=== PATIENT | female | born 1955 | race Hispanic/Latino ===

== ENCOUNTER 2017-12-17 12:23 | Day surgery (SDC) | payer MEDICARE ==
[2017-12-14 11:56] VITALS: BMI 14.9
[2017-12-17 12:40] LABS: BASO # 0.1 K/mm3 (0.0-2.0); BASO % 1.8 % (0.0-3.0); EOS # 0.3 (0.0-0.7); EOS % 5.3 % (1.5-5.0); GRAN # 2.87 (1.4-6.5); GRAN % 50.3 % (50.0-68.0); HEMOGLOBIN 14.1 g/dL (12.0-16.0); LYMPH % 35.4 % (22.0-35.0); MEAN CELL VOLUME 93.1 fl (80.0-105.0); MEAN CORPUSCULAR HEMOGLOBIN 32.3 pg (25.0-35.0); MEAN CORPUSCULAR HGB CONC 34.7 g/dl (31.0-37.0); MEAN PLATELET VOLUME 9.1 fl (7.0-11.0); MONO # 0.4 (0.1-0.6); MONO % 7.2 % (1.0-6.0); RBC 4.36 10^6/uL (3.5-6.1); RED CELL DISTRIBUTION WIDTH 12.2 % (11.5-14.5); WHITE BLOOD COUNT 5.7 10^3/ul (4.5-11.0)
[2017-12-17 12:46] LABS: BLOOD UREA NITROGEN 6 mg/dL (7-21); CALCIUM 9.4 mg/dL (8.4-10.5); GFR AFRICAN-AMERICAN > 60; GFR NON-AFRICAN AMERICAN > 60
[2017-12-17 12:52] LABS: INR 0.95 (0.93-1.08); PARTIAL THROMBOPLASTIN TIME 30.7 Seconds (25.1-36.5); PROTHROMBIN TIME 10.9 SECONDS (9.4-12.5)
[2017-12-17] MEDS ORDERED: Lidocaine 2% Inj (20ml) ONE ×2 (15:12→16:11)
[2017-12-17] MEDS ORDERED: Midazolam 2 MG/2 ML VIAL ONE ×2 (15:13→16:39)
[2017-12-17] MEDS ORDERED: Iodixanol 320 MG/ML 100 ML BOTTLE IV ONE (15:14)
[2017-12-17] MEDS ORDERED: Oxycodone/Acetaminophen 5/325 mg Tab PO PRN (17:37)
[2017-12-17] MEDS ORDERED: DiphenhydrAMINE 50 mg/ml Inj ONE (17:42)
[2017-12-17] MEDS ORDERED: Famotidine 20mg/50ml 20 MG/50 ML BAG IVPB ONE (17:42)
[2017-12-17] MEDS ORDERED: EPINEPHrine 1 mg/ml (1:1000) Inj ONE (17:44)
[2017-12-17] MEDS ORDERED: Sodium Chloride 0.45% 1,000 ML IV SCH (17:45)
[2017-12-17] MEDS ORDERED: Flumazenil 0.1 mg/ml Inj (5ml) IVP ONE (17:47)
--- NOTE | 2017-12-17 18:33 | PCM.RRT ---
GEAR STRAIGHTENER Nurse Assessment - Situation Date: 12/17/17 Time GEAR STRAIGHTENER was called: 17:50 GEAR STRAIGHTENER Responder Arrival Time: 17:51 GEAR STRAIGHTENER Location:: Cardiac Cath Unit GEAR STRAIGHTENER Reason for Call: Looks Sicker GEAR STRAIGHTENER Called By: RN - Respiratory Oxygen Delivery Method: Face Mask @% Was the Patient Intubated?: No - Recommendations 5) GEAR STRAIGHTENER Level of Care Recommendations: Discharge to Emergency Room Notifications: Attending Physician, Family or Designated Caregiver I.Reason for GEAR STRAIGHTENER - A) Acute Change in Patient: Subjective: PGY-[address] Baker GEAR STRAIGHTENER: Respiratory distress and symptomatic hypotension Ms Panchal, 62 F, with Hx COPD not O2 dependent, Hx lung CA s/p R upper lobectomy , and hypothyroid came in for port-a-cath placement. The pre-procedure vitals are as follows: HR 80s, 134/66, 100% on 2L. Patient received 2% Lidocaine SC, Ancef 1g, Fentanyl 150, Versed 3 during the procedure. No contrast was used. The procedure was successful. As patient was transferred from surgical table to a stretcher, the staff noticed that she was choking and had a difficulty catching breath. She remains on 2L O2 on face mask and SaO2 100. The concern for angioedema was raised. Prompty epineprhine, solumedrol, and benadryl was given. Pt HR went up to 160s, so GEAR STRAIGHTENER was called. In about 15 minutes, pt was breathing better, HR returned to 110s, and POx was 92 RA. She was transferred to PACU. In PACU, her BP was in 50s. After bolus 500cc NS, her BP was 70s. Pt was AAOx3 but complained of dizziness. She was transferred to ED for admission. PMH COPD not O2 dependent New Breast cancer (dx several months ago) Hx lung CA s/p R upper lobectomy, chemo, radiation 17 years (2000) hypothyroid Arthritis, disc disease PSH R lobectomy L breast bx L knee arthroscopy Port-a-cath placement - today by Dr Perez FH 2 sister - colon dad - lung sister - kidney sister - oral Mom, aunt - CVA SH Recent former smoker, quit 2 weeks ago was 10-15 cig/day x 40+ years Denies Drink, drug All NKDA. Med [place] Pulm Dr Trinidad oncologist Dr Rodriguez - Neurological Status (Select all that apply): Alert, Responsive, Oriented, Verbal, Follows Commands - Respiratory Oxygen Delivery Method: Room Air - Constitutional Appears: Non-toxic - Head Head Exam: ATRAUMATIC, NORMAL INSPECTION, NORMOCEPHALIC - Eyes Eye Exam: EOMI, Normal appearance, PERRL. absent: Scleral icterus Additional Comments: No lip/tongue/throat swelling - Respiratory Exam Respiratory Exam: Clear to Ausculation Bilateral, Rales. absent: Rhonchi, Wheezes - Cardiovascular Exam Cardiovascular Exam: Tachycardia, REGULAR RHYTHM, +S1, +S2 - GI/Abdominal Exam GI & Abdominal Exam: Soft. absent: Distended - Neurological Exam Neurological Exam: Alert, Awake, Oriented x3 - Extremities Exam Extremities Exam: absent: Pedal Edema Plan - Assessment of Findings&Treatment Plan Allergic reaction s/p epi, solumedrol, benadryl Exposure meds include Ancef, lidocaine, Versed, fentynl Symptomatic Hypotension likely due to allergic reaction - Pt is stablized via NS bolus. SBP 70s. - Keep MAP 65 - transfer to ED for possible admission - Notified family, Dr. Perez, Dr Rodriguez
[2017-12-17 19:33] VITALS: RESP 19; TEMP 97.7
[2017-12-17 19:52] VITALS: BP 71/43; PULSE 70; O2SAT 99
--- NOTE | 2017-12-17 21:06 | VASCULAR ---
PROCEDURE: Ultrasound and fluoroscopic right internal jugular venous access port. CLINICAL HISTORY: Recently diagnosed breast carcinoma. Previous Pancoast tumor.Venous port for chemotherapy. PHYSICIAN(S): Jason Perez M.D. TECHNIQUE: The relative risks and indications of the procedure were explained to the patient and consent obtained. The patient was placed supine on the arteriogram table and the right neck and chest prepped and draped in the usual sterile fashion. Conscious sedation monitoring was provided throughout the procedure by a nurse. Antibiotics were given prior to the procedure. Under direct ultrasound guidance, the right internal jugular vein was punctured with a micro-puncture set. A 0.035 angled Glidewire was advanced into the IVC. A 4 cm incision was made below the right clavicle and the pocket blunted dissected. A 8 Croatian single-lumen catheter, 23 cm long, was advanced to the SVC/RA junction. The catheter was trimmed and attached to the port. The port aspirates and injects easily. The port was placed in the pocket and closed in 2 layers. The patient tolerated the procedure well. IMPRESSION: Ultrasound and fluoroscopically placed right internal jugular venous access port.
== END 2017-12-17 17:00 ==
LOC: SDSVAS 12:23
PROVIDERS: ATTEND Radiology Vascular & Interventional Radiology
DX: C50.919 Malignant neoplasm of unspecified site of unspecified female breast (principal); I95.9 Hypotension, unspecified; T50.995A Adverse effect of other drugs, medicaments and biological substances, initial encounter; J44.9 Chronic obstructive pulmonary disease, unspecified; E03.9 Hypothyroidism, unspecified; M19.90 Unspecified osteoarthritis, unspecified site; Z85.118 Personal history of other malignant neoplasm of bronchus and lung; Z99.81 Dependence on supplemental oxygen; Z90.2 Acquired absence of lung [part of]; Z87.891 Personal history of nicotine dependence
CPT/HCPCS: 36561; 72HRC; 76937; 77001; 99152; 99153

== ENCOUNTER 2017-12-17 18:44 | Inpatient (IN) | payer MEDICARE ==
[2017-12-17] MEDS ORDERED: Sodium Chloride 0.9% 1,000 ML IV STA ×3 (19:09→20:33)
[2017-12-17] MEDS ORDERED: Albuterol-Ipratrop 3 mg / 0.5 (3 ml) UD IH STA (19:09)
--- NOTE | 2017-12-17 19:13 | ED PDOC ---
Arrival/HPI - General Historian: Patient, Other ([facility] team) - History of Present Illness Time/Duration: Prior to Arrival Symptom Onset: Sudden Symptom Course: Improving Activities at Onset: Rest Context: Other (hospital/[facility]) - General Chief Complaint: Allergic Reaction Time Seen by Provider: 12/17/17 19:08 - History of Present Illness Narrative History of Present Illness (Text): 12/17/17 19:10 pt p/w + low bp while receiving right port-a cath placement at [facility], just prior to ED arrival; pt was given versed/fentanyl for conscious sedation and does not have any recollection of the procedure but as she awoke, pt described an odd/ throat tightness feeling/tightness, no drooling/voice changes, no rashes/itching /swelling was noted, no tongue/linda-oral swelling/edema noted; pt states after EPI/benadryl/pepcid/solumedrol, pt did not felt any changes, but pt's BP remained low, MAP ~ 40s; pt was given nearly ~ 700 cc of NS at the PACU and pt' s BP remained low and pt was subsequently brought down to ED for further eval/ treatment; pt states her BP usually hovers around 110s/60s; pt states no fever/ chills/sweats, pt denied cp/sob/palpitations, no abd pain, no n/v, no numbness/ tingling, no urinary/bowel changes, no fall/trauma/sick contact, no travel; pt HAD NOT received any chemo treatments yet pt denied LOC pt is here for further eval pt's without other complaints. PCP: Dr Mayen interventional: Dr Perez pt with prior hx of right LUNG cancer (s/p lobectomy) 18 years ago, in remission recent dx of left Breast cancer - stage 3 (Ilan Patiño) Past Medical History - Provider Review Nursing Documentation Reviewed: Yes - Travel History Have you recently traveled outside [place] w/in the past 3 mons?: No - Past History Past History: No Previous - Infectious Disease Hx of Infectious Diseases: None - Tetanus Immunization Tetanus Immunization: Unknown - Reproductive Menopause: Yes Currently : No - Cardiac Hx Pacemaker: No - Pulmonary Hx Chronic Obstructive Pulmonary Disease (COPD): Yes - Neurological Hx Paralysis: No - Endocrine/Metabolic Hx Hypothyroidism: Yes - Hematological/Oncological Hx Blood Transfusions: No - Musculoskeletal/Rheumatological Hx Musculoskeletal Disorders: Yes - Genitourinary/Gynecological Other/Comment: ca L breast - Psychiatric Hx Substance Use: No - Anesthesia Hx Anesthesia Reactions: No Hx Malignant Hyperthermia: No Family/Social History - Physician Review Nursing Documentation Reviewed: Yes Family/Social History: No Known Family HX Smoking Status: Former Smoker Hx Alcohol Use: No Hx Substance Use: No Hx Substance Use Treatment: No Allergies/Home Meds Allergies/Adverse Reactions: Allergies No Known Allergies Allergy (Verified 08/22/13 02:18) Home Medications: Home Meds Medication Instructions Recorded Confirmed Albuterol Sulfate [Ventolin Hfa] 1 puff IH PRN PRN 12/14/17 12/17/17 Beclomethasone Dipropionate [Qvar 2 puff IH QPM 12/14/17 12/17/17 40 mcg] Levothyroxine [Synthroid] 25 mcg PO DAILY 12/14/17 12/17/17 Morphine [Morphine Extended 30 mg PO Q8H 12/14/17 12/17/17 Release Tab] Morphine [Morphine Sulfate] 30 mg PO Q4H 12/14/17 12/17/17 Tiotropium Br/Olodaterol HCl 2 puff IH QAM 12/14/17 12/17/17 [Stiolto Respimat Inhal [place]] Varenicline Tartrate [Chantix] 0.5 mg PO BID 12/14/17 12/17/17 Review of Systems - Review of Systems Constitutional: Fatigue Eyes: Normal ENT: Normal, Other (throat irritation/tightness). absent: Hearing Changes Respiratory: Normal. absent: SOB, Cough Cardiovascular: Normal. absent: Chest Pain, Palpitations Gastrointestinal: Normal. absent: Abdominal Pain, Nausea, Vomiting Genitourinary Female: Normal Musculoskeletal: Normal Skin: Normal Neurological: Normal Endocrine: Normal Hemo/Lymphatic: Normal Psychiatric: Normal Physical Exam Vital Signs Reviewed: Yes Temperature: Afebrile Blood Pressure: Hypotensive Pulse: Regular Respiratory Rate: Normal Appearance: Positive for: Well-Appearing, Uncomfortable, Cachectic, Other (alert /awake, GCS = 15, oriented x 3, mildly uncomfortable, resting in bed, NAD, cooperative, follows command with ease) Pain Distress: None Mental Status: Positive for: Alert and Oriented X 3 - Systems Exam Head: Present: Atraumatic, Normocephalic, Other (bi-temporal wasting) Pupils: Present: PERRL, Other (no nystagmus, no photophobia, sclera anicteric, visual field intact b/l) Extroacular Muscles: Present: EOMI Conjunctiva: Present: Normal Ears: Present: Normal Mouth: Present: Dry, Normal Teeth, Other (uvula/tongue are midline, no edema/ swelling noted, fair dentitions, no dysphonia) Pharnyx: Present: Normal Nose (External): Present: Atraumatic Nose (Internal): Present: Normal Inspection Neck: Present: Normal Range of Motion, Trachea Midline. No: Meningeal Signs, MIDLINE TENDERNESS Respiratory/Chest: Present: Decreased Breath Sounds, Other (bibasiliar coarse breath sounds, left > right; decr breath sounds noted to right lung (prior lung surg), + bibasiliar wheezing noted; no rhonchi noted b/l, no tachypenia, no accessory muscle use noted; + rigth chest wall (cath placement) appearing well/ no gross tenderness noted on exam/no crepitus). No: Respiratory Distress, Accessory Muscle Use Cardiovascular: Present: Regular Rate and Rhythm, Normal S1, S2. No: Murmurs Abdomen: Present: Normal Bowel Sounds, Other (thin female, no focal tenderness, no earl's sign, no mcburney's point tenderness, no masses/rebound/guarding/ rigidity) Back: Present: Normal Inspection, Other (no midline tenderness). No: CVA Tenderness, Midline Tenderness Upper Extremity: Present: Normal Inspection, Normal ROM, NORMAL PULSES, Neurovascularly Intact Lower Extremity: Present: Normal Inspection, NORMAL PULSES, Normal ROM, Neurovascularly Intact. No: Linnette's Sign Neurological: Present: GCS=15, CN II-XII Intact, Speech Normal, Other (NIH stroke scale ~ 0) Skin: Present: Warm, Dry, Other (cap refill ~ 1 sec, no ulcerations, no petechiae, pallor, no lesions/ulcerations) Psychiatric: Present: Alert, Oriented x 3 Vital Signs Temp Pulse Resp BP Pulse Ox 12/17/17 23:06 88 18 100/59 L 99 12/17/17 18:44 98.1 F 67 16 106/79 100 Medical Decision Making Re-evaluation Time: 22:00 Reassessment Condition: Improving,but remains with symptoms - Critical Care Critical Care Minutes: 45 minutes Critical Care Time: Excluding Proc Time - Lab Interpretations I have reviewed the lab results: Yes Interpretation: Abnormal lab values (elevated WBCs/TROP) - RAD Interpretation Table Cover Folder: ED Physician - EKG Interpretation Interpreted by ED Physician: Yes Type: 12 lead EKG Comparison: Similar to previous EKG ED Course and Treatment: 12/17/17 19:12 Impression: throat tightness/low bp i have consider all the differential diagnosis regarding pt's chief medical complaints/clinical findings, including but are not limited to: throat thightness/low bp A/P: throat tightness/low bp - labs - ekg - xray - iv - supportive care - observe/reevaluation Progress Notes: 12/17/17 20:[address] Leos, munitions handler supervisor surgical product sales consultant, who is aware of the patient' s status. Will send his team to evaluate and monitor patient. 12/17/17 20:25 ICU team evaluated patient at bed side, agrees with ICU bed placement. paging Dr Julio, no reply will continue to page multiple pages to Dr Julio were provided, Dr Julio reply at ~ 10:[address] Julio made aware of pt's ED presentation, agrees with ED mgt/txt, will admit patient to Dr Soto and to consult the following drs: Dr Daley/Skyler/ Evelyne/ICU attending pt is currently comfortable with occasional neck pain pt also felt mild sob pt is made aware of her medical results agrees with admission 12/17/17 22:51 Dr julio contacted again, made aware of pt's abnl Trop value, will continue to monitor paging dr holland, spoke to Dr Holland states to contact Dr Naik, he is surgical product sales consultant 12/17/17 22:55 pt is currently chest pain free awaiting Dr Naik to return call 12/17/17 23:19 Dr Naik contacted, made aware of pt's ED presentation, due to negative chest pain, negative for cardiac concerns currently, recommends holding off anti- coagulation and to continue monitor patient; Dr Naik will evaluate patient in the AM (Ilan Patiño) - Critical Care Narrative Critical Care (Text): 12/17/17 22:19 critical care time: 45min, excluding procedure time, excluding time teaching residents/students/mid-level providers; including initial eval/diagnosis, diagnostic interpretation, re-eval, consultations, final disposition (Ilan Patiño) - Lab Interpretations Lab Results: 12/17/17 21:35 12/17/17 21:35 Lab Results 12/17/17 21:35: Sodium 136, Chloride 104, Potassium 4.0, Carbon Dioxide 23, Anion Gap 12, BUN 6 L, Creatinine 0.4 L, Est GFR ( Amer) > 60, Est GFR ( Non-Af Amer) > 60, Random Glucose 91, Calcium 7.6 L, Phosphorus 3.6, Magnesium 1.7, Total Bilirubin 0.3, AST 23, ALT 22, Alkaline Phosphatase 48, Troponin I 0.21 H*, NT-Pro-B Natriuret Pep 119, Total Protein 5.4 L, Albumin 2.9 L, Globulin 2.5, Albumin/Globulin Ratio 1.2 12/17/17 21:35: PT 12.3, INR 1.08, APTT 28.8 12/17/17 21:35: WBC 15.0 H D, RBC 3.52, Hgb 11.2 L D, Hct 32.9 L, MCV 93.5, MCH 31.8, MCHC 34.0, RDW 12.5, Plt Count 219, MPV 9.3, Gran % 89.7 H, Lymph % (Auto ) 6.9 L, [place] % (Auto) 2.4, Eos % (Auto) 0.7 L, Baso % (Auto) 0.3, Gran # 13.43 H, Lymph # (Auto) 1.0 L, [place] # (Auto) 0.4, Eos # (Auto) 0.1, Baso # (Auto) 0.04 12/17/17 20:30: pO2 49, VBG pH 7.17 L*, VBG pCO2 68.0 H*, VBG HCO3 24.8, VBG Total CO2 26.9, VBG O2 Sat (Calc) 81.3 H, VBG Base Excess -5.1 L, VBG Potassium 3.6, Sodium 136.0, Chloride 106.0, Glucose 138 H, Lactate 1.8, FiO2 21.0, Venous Blood Potassium 3.6 - RAD Interpretation Narrative RAD Interpretations (Text): 12/17/17 22:20 cardiomeagly right port-a cath placement hyperinflated lung araujo (Ilan Patiño) Radiology Orders: 12/17/17 19:08 CHEST PORTABLE [RAD] Stat - EKG Interpretation EKG Interpretation (Text): 12/17/17 19:36 NSR at 65 bpm, normal axis, no ectopy, diffuse low voltage, no st-t changes, BORDERLINE EKG; unchanged compare with old ekg 08/2013 (Ilan Patiño) - Medication Orders Current Medication Orders: Albuterol/Ipratropium (Duoneb 3 Mg/0.5 Mg (3 Ml) Ud) 3 ml IH [id number] PRN PRN Reason: Shortness of Breath Lactated Ringer's (Lactated Ringer's) 1,000 mls @ 100 mls/hr IV .Q10H GENI Levothyroxine Sodium (Synthroid) 25 mcg PO 0600 GENI Discontinued Medications Albuterol/Ipratropium (Duoneb 3 Mg/0.5 Mg (3 Ml) Ud) 3 ml IH STAT STA Stop: 12/17/17 19:10 Last Admin: 12/17/17 19:09 Dose: 3 ml Sodium Chloride (Sodium Chloride 0.9%) 1,000 mls @ 999 mls/hr IV .Q1H1M STA Stop: 12/17/17 20:09 Last Admin: 12/17/17 19:09 Dose: 999 mls/hr eMAR Start Stop Document 12/17/17 19:09 JONEL (Rec: 12/17/17 21:13 JONEL [id number]) Intravenous Solution Start Date 12/17/17 Start Time 19:09 End Date 12/17/17 End time 19:30 Total Infusion Time 21 Sodium Chloride (Sodium Chloride 0.9%) 1,000 mls @ 999 mls/hr IV .Q1H1M STA Stop: 12/17/17 21:06 Last Admin: 12/17/17 21:13 Dose: 999 mls/hr eMAR Start Stop Document 12/17/17 21:13 JONEL (Rec: 12/17/17 21:14 JONEL [id number]) Intravenous Solution Start Date 12/17/17 Start Time 20:06 End Date 12/17/17 End time 20:46 Total Infusion Time 40 Sodium Chloride (Sodium Chloride 0.9%) 1,000 mls @ 999 mls/hr IV .Q1H1M STA Stop: 12/17/17 21:33 Last Admin: 12/17/17 21:14 Dose: 999 mls/hr eMAR Start Stop Document 12/17/17 21:14 JONEL (Rec: 12/17/17 21:15 JONEL [id number]) Intravenous Solution Start Date 12/17/17 Start Time 21:00 End Date 12/17/17 End time 21:15 Total Infusion Time 15 Morphine Sulfate (Morphine) 2 mg IVP STAT STA Stop: 12/17/17 21:02 Last Admin: 12/17/17 21:08 Dose: 2 mg MAR Pain Assessment Document 12/17/17 21:08 JONEL (Rec: 12/17/17 21:08 JONEL [id number]) Pain Reassessment Is this a pain reassessment? No IVP Administration Document 12/17/17 21:08 JONEL (Rec: 12/17/17 21:08 JONEL [id number]) Charges for Administration # of IVP Administrations 1 Disposition/Present on Arrival - Present on Arrival Any Indicators Present on Arrival: No History of DVT/PE: No History of Uncontrolled Diabetes: No Urinary Catheter: No History of Decub. Ulcer: No History Surgical Site Infection Following: None - Disposition Have Diagnosis and Disposition been Completed?: Yes Disposition Time: 21:00 Patient Plan: Admission, ICU - Disposition Diagnosis: Hypotension, At risk for sepsis, Weakness, Elevated troponin I level Disposition: HOSPITALIZED Patient Problems: Current Active Problems Problem Status Onset Hypotension Acute At risk for sepsis Acute Weakness Acute Elevated troponin I level Acute Condition: FAIR
[2017-12-17 20:42] LABS: VENOUS BLOOD GAS BASE EXCESS -5.1 mmol/L (0.0-2.0); VENOUS BLOOD GAS PO2 49 mm/Hg (30-55); VENOUS BLOOD PH 7.17 (7.32-7.43)
[2017-12-17] MEDS ORDERED: Morphine 2 mg/ml ISec IVP STA (20:56)
[2017-12-17] MEDS ORDERED: Morphine 4 mg/ml ISec IVP STA (21:01)
[2017-12-17 21:42] LABS: BASO # 0.04 K/mm3 (0.0-2.0); BASO % 0.3 % (0.0-3.0); EOS # 0.1 (0.0-0.7); EOS % 0.7 % (1.5-5.0); GRAN # 13.43 (1.4-6.5); GRAN % 89.7 % (50.0-68.0); HEMOGLOBIN 11.2 g/dL (12.0-16.0); LYMPH % 6.9 % (22.0-35.0); MEAN CELL VOLUME 93.5 fl (80.0-105.0); MEAN CORPUSCULAR HEMOGLOBIN 31.8 pg (25.0-35.0); MEAN PLATELET VOLUME 9.3 fl (7.0-11.0); MONO # 0.4 (0.1-0.6); MONO % 2.4 % (1.0-6.0); RBC 3.52 10^6/uL (3.5-6.1); RED CELL DISTRIBUTION WIDTH 12.5 % (11.5-14.5)
[2017-12-17 21:49] LABS: INR 1.08 (0.93-1.08); PARTIAL THROMBOPLASTIN TIME 28.8 Seconds (25.1-36.5); PROTHROMBIN TIME 12.3 SECONDS (9.4-12.5)
[2017-12-17] MEDS ORDERED: Albuterol-Ipratrop 3 mg / 0.5 (3 ml) UD IH PRN ×2 (22:14→23:55)
[2017-12-17] MEDS ORDERED: Lactated Ringer's 1,000 ML IV SCH ×2 (22:15→23:54)
[2017-12-17 22:35] LABS: ALB/GLOB RATIO 1.2 (1.1-1.8); ALBUMIN 2.9 g/dL (3.0-4.8); ALT/SGPT 22 U/L (7-56); AST/SGOT 23 U/L (14-36); B-TYPE NATRIURETIC PEPTIDE 119 pg/mL (0-450); BLOOD UREA NITROGEN 6 mg/dL (7-21); CALCIUM 7.6 mg/dL (8.4-10.5); GFR AFRICAN-AMERICAN > 60; GFR NON-AFRICAN AMERICAN > 60; TROPONIN I 0.21 ng/mL
[2017-12-17 22:58] LABS: URINE BILIRUBIN NEGATIVE (NEGATIVE); URINE BLOOD NEGATIVE (NEGATIVE); URINE GLUCOSE (UA) NEGATIVE (NEGATIVE); URINE LEUKOCYTE ESTERASE NEGATIVE Leu/uL (NEGATIVE); URINE PROTEIN 30 mg/dL (<30 mg/dL); URINE UROBILINOGEN 0.2 E.U./dL (<1 E.U./dL)
[2017-12-17 22:59] LABS: URINE APPEARANCE CLEAR (CLEAR); URINE COLOR YELLOW (YELLOW)
[2017-12-17 23:02] LABS: URINE EPITHELIAL CELLS 0 - 2 /hpf (0-5); URINE RBC 0 - 2 /hpf (0-2); URINE WBC 0 - 2 /hpf (0-6)
[2017-12-17] MEDS ORDERED: Aspirin 325 mg EC Tablets PO STA (23:19)
--- NOTE | 2017-12-17 23:48 | CP.PCM.CON ---
History of Present Illness - History of Present Illness History of Present Illness: ICU Consult Note: Dr. Leos Reason For Consult: Hypotension HPI: 62 year old female with past medical history of breast cancer, lung cancer, hypothyroidism, and COPD presents s/p an allergic reaction at [facility]. Patient was administered Versed for insertion of a portacath and when she awoke after the procedure she was found to be gasping for air and hypotensive. Patient denies any fevers, chills, rash, or productive cough. Surgical History: Sudeep-cath insertion, Lobectomy Medical History: Breast Cancer, Lung cancer, Hypothyroidism, COPD Allergies: NKDA Social History: Former smoker; Denies illicits/alcohol Home Meds: Reviewed, as per MAR Family History: Non-contributory PMD: [place] Past Patient History - Infectious Disease Hx of Infectious Diseases: None - Tetanus Immunizations Tetanus Immunization: Unknown - Past Social History Smoking Status: Former Smoker - CARDIAC Hx Pacemaker: No - PULMONARY Hx Chronic Obstructive Pulmonary Disease (COPD): Yes - NEUROLOGICAL Hx Paralysis: No - ENDOCRINE/METABOLIC Hx Hypothyroidism: Yes - HEMATOLOGICAL/ONCOLOGICAL Hx Blood Transfusions: No - MUSCULOSKELETAL/RHEUMATOLOGICAL Hx Musculoskeletal Disorders: Yes - GENITOURINARY/GYNECOLOGICAL Other/Comment: ca L breast - PSYCHIATRIC Hx Substance Use: No - SURGICAL HISTORY Hx Surgeries: Yes - ANESTHESIA Hx Anesthesia Reactions: No Hx Malignant Hyperthermia: No Meds Allergies/Adverse Reactions: Allergies Allergy/AdvReac Type Severity Reaction Status Date / Time No Known Allergies Allergy Verified 08/22/13 02:18 - Medications Medications: Current Medications Albuterol/Ipratropium (Duoneb 3 Mg/0.5 Mg (3 Ml) Ud) 3 ml IH [id number] PRN PRN Reason: Shortness of Breath Lactated Ringer's (Lactated Ringer's) 1,000 mls @ 100 mls/hr IV .Q10H GENI Levothyroxine Sodium (Synthroid) 25 mcg PO 0600 [facility] Physical Exam - Constitutional Appears: Well - Head Exam Head Exam: ATRAUMATIC, NORMAL INSPECTION, NORMOCEPHALIC - Eye Exam Eye Exam: EOMI, Normal appearance, PERRL Pupil Exam: NORMAL ACCOMODATION, PERRL - ENT Exam ENT Exam: Mucous Membranes Moist, Normal Exam - Neck Exam Neck exam: Positive for: Normal Inspection - Respiratory Exam Respiratory Exam: Clear to Auscultation Bilateral, NORMAL BREATHING PATTERN - Cardiovascular Exam Cardiovascular Exam: REGULAR RHYTHM - GI/Abdominal Exam GI & Abdominal Exam: Normal Bowel Sounds, Soft. absent: Tenderness - Extremities Exam Extremities exam: Positive for: normal inspection - Back Exam Back exam: NORMAL INSPECTION - Neurological Exam Neurological exam: Alert, CN II-XII Intact, Normal Gait, Oriented x3, Reflexes Normal - Psychiatric Exam Psychiatric exam: Normal Affect, Normal Mood - Skin Skin Exam: Dry, Intact, Normal Color, Warm Results - Vital Signs Recent Vital Signs: Last Vital Signs Temp 98.1 F 12/17/17 18:44 Pulse 88 12/17/17 23:06 Resp 18 12/17/17 23:06 BP 100/59 L 12/17/17 23:06 Pulse Ox 99 12/17/17 23:06 - Labs Result Diagrams: 12/17/17 21:35 12/17/17 21:35 Labs: Laboratory Results - last 24 hr 12/17/17 22:53 Urine Color Yellow Urine Appearance Clear Urine pH 7.0 Ur Specific [place] 1.010 Urine Protein 30 H Urine Glucose (UA) Negative Urine Ketones Negative Urine Blood Negative Urine Nitrate Negative Urine Bilirubin Negative Urine Urobilinogen 0.2 Ur Leukocyte Esterase Negative Urine RBC 0 - 2 Urine WBC 0 - 2 Ur Epithelial Cells 0 - 2 Assessment & Plan - Assessment and Plan (Free Text) Assessment: 62 year old female with pertinent medical history of breast cancer presents with hypotension after undergoing anesthesia. Patient's MAP would not go above 51 while she was at [facility], has now responded to fluid boluses. Patient also was found to have a WBC of 15, but no other SIRS criteria present. Patient has a history of COPD and per lab review was found to have a pH of 7.17 with CO2 of 68. Patient's other chronic medical problems as below. Plan: Neuro - Monitor CV: Hypotension likely 2/2 Anaphylactic Shock - Maintain MAP > 65 - Fluid bolus X 5 with NS and Lactacted Ringers maintenance @ 125/hr - Vitals q2h - Cardiology consult: Dr. Holland Pulm: - Maintain SPO2 > 90 % - 2L NC prn; Duoneb GENI and PRN - Pulm consult: Dr. Mccall GI: - Regular diet; Protonix Prophylaxis Renal: - Monitor electrolytes and renal function - Patient has respiratory acidosis - O2 PRN and Duonebs ID: Leukocytosis Likely 2/2 Reactive - F/u Septic work up - childress cultures - Procalcitonin; VBG Endo: - TSH, T4 - Synthroid - Maintain glucose at 140 -160 Dispo: At this time, patient needs ICU level of care. We will follow closely.
[2017-12-18] MEDS ORDERED: Aspirin 325 mg EC Tablets PO STA (01:27)
[2017-12-18] MEDS ORDERED: Heparin25000 units/250ml 1/2NS 25,000 UNITS/250 ML BAG IV SCH ×2 (02:30→02:45)
[2017-12-18 03:53] VITALS: BMI 15.3
[2017-12-18] MEDS: Levothyroxine 25 MCG TAB PO SCH (06:16)
[2017-12-18 06:28] LABS: GRAN # 8.18 (1.4-6.5); GRAN % 90.2 % (50.0-68.0); HEMOGLOBIN 10.7 g/dL (12.0-16.0); LYMPH # 0.7 (1.2-3.4); LYMPH % 7.2 % (22.0-35.0); MEAN CELL VOLUME 92.6 fl (80.0-105.0); MEAN CORPUSCULAR HEMOGLOBIN 31.5 pg (25.0-35.0); MEAN PLATELET VOLUME 9.4 fl (7.0-11.0); MONO # 0.2 (0.1-0.6); MONO % 2.6 % (1.0-6.0); PLATELET COUNT 232 10^3/uL (120.0-450.0); RED CELL DISTRIBUTION WIDTH 12.5 % (11.5-14.5); WHITE BLOOD COUNT 9.1 10^3/ul (4.5-11.0)
[2017-12-18 06:43] LABS: ALB/GLOB RATIO 1.2 (1.1-1.8); ALBUMIN 3.1 g/dL (3.0-4.8); ALT/SGPT 19 U/L (7-56); AST/SGOT 34 U/L (14-36); BLOOD UREA NITROGEN 6 mg/dL (7-21); CALCIUM 8.1 mg/dL (8.4-10.5); GFR AFRICAN-AMERICAN > 60; GFR NON-AFRICAN AMERICAN > 60
[2017-12-18 06:55] LABS: TROPONIN I 0.74 ng/mL
[2017-12-18 08:15] LABS: LYMPHOCYTE 6 % (22.0-35.0); MONOCYTE 1 % (1.0-6.0); NEUTROPHIL 93 % (50.0-70.0); PLATELET ESTIMATE NORMAL (NORMAL)
--- NOTE | 2017-12-18 09:17 | CON ---
DATE: 12/18/2017 The patient admitted for Dr. Rodriguez and Dr. David Soto. REFERRING MD: David Soto MD. REASON FOR CONSULTATION: Evaluation of a patient unknown to me who presents with hypotension post receiving Versed and fentanyl and same-day surgery for placement of a right chest wall port. HISTORY OF PRESENT ILLNESS: The patient is a pleasant 62-year-old white female with a history of right lung cancer, status post lobectomy many years ago, in remission. History of recently diagnosed left breast cancer, scheduled for chemotherapy to be followed by mastectomy. The patient was brought in for placement of a port in her right chest wall. The patient apparently developed significant hypotension post receiving Versed and fentanyl. She received IV fluid hydration and because of persistent hypotension, was sent to the emergency room and eventually the ICU for further volume repletion and stabilization of her blood pressure. The patient has a history of COPD secondary to past cigarette smoking, history of anemia, history of hypothyroidism. The patient is noted to have mild elevation of her cardiac enzymes, troponin levels are mildly elevated. She was started on heparin empirically. Her EKG shows no acute changes. We were asked to evaluate the patient for her hypotension. Of note, her blood pressure this morning has stabilized with systolics in the low 100 range and diastolics in the 50 range. PAST MEDICAL HISTORY: Significant for recently diagnosed breast cancer stage 3, left breast scheduled for mastectomy and chemotherapy. History of lung cancer, status post right lung lobectomy. The patient is felt to be in remission. History of cigarette smoking with COPD. The patient is currently off cigarettes. History of anemia, history of hypothyroidism. MEDICATIONS AT HOME: Include that of Chantix, inhalation therapy, p.r.n. morphine, Synthroid, QVAR and Ventolin HFA. ALLERGIES: NO KNOWN ALLERGIES TO MEDICATIONS. CURRENT MEDICATIONS: In hospital include that of albuterol, heparin, lactated Ringer's and Synthroid. SOCIAL HISTORY: Past history of cigarette smoking. No history of alcohol use. FAMILY HISTORY: Noncontributory. REVIEW OF SYSTEMS: Ten plus systems reviewed with the patient. All negative except for what is noted above. GENERAL: Appetite and weight have been stable. ENT: Denies any hearing or visual problems. PULMONARY: Denies any shortness of breath. Past history of COPD, stable. CARDIAC: No known history of coronary artery disease. GI: No nausea, vomiting, diarrhea, constipation or abdominal pain. : No history of chronic kidney disease. No history of UTIs. DIRECTOR OF COUNTERINTELLIGENCE: Postmenopausal. ENDOCRINE: No history of diabetes. MUSCULOSKELETAL: No complaints. NEURO: No history of CVA, TIA, seizures or syncope. HEME/ONC: Positive for malignancy as noted above. Positive anemia. PSYCHIATRIC: History is negative. PHYSICAL EXAMINATION: GENERAL: The patient was currently seen in the ICU bed 6. IV fluids are infusing. The patient is on heparin. She appears to be in no acute distress. VITAL SIGNS: Blood pressure presently is 107/47, respiratory rate 21. Pulse of 84 with a temperature of 97.7. HEENT: Exam shows her to be normocephalic, atraumatic. Conjunctivae are pink. Sclerae are nonicteric. Pupils equal, reactive to light and accommodation. Extraocular muscles are intact. Posterior pharynx is normal. NECK: Supple. No neck vein distention. No lymphadenopathy. No bruits. No thyromegaly. CHEST: Clear to auscultation and percussion. No rales, rhonchi or wheezing. Positive port, right chest wall. CARDIOVASCULAR: Regular rate and rhythm without murmurs, rubs or gallops. ABDOMEN: Soft. Bowel sounds normal. No rebound, guarding or masses. BACK: No CVAT. No spinal tenderness. EXTREMITIES: Show no cyanosis, no clubbing, no edema. Distal lower extremity pulses are 2+ bilaterally. NEURO: Shows her to be alert, oriented x3 with no focal motor or sensory deficits noted. LABORATORY DATA AND IMAGING: Admitting EKG showed a normal sinus rhythm with no acute ST or T-wave changes. Chest x-ray done on admission, report is pending. Labs: CBC, white blood cell count 9.1 with a hemoglobin of 10.7 and a platelet count of 232,000. This is down from a white blood cell count of 15,000 with a hemoglobin of 11.2. Coags showed PT of 12.3 with INR of 1.08 and a PTT of 28.8. On heparin, her PTT is 80.5. Blood gas showed a pH of 7.17, a pCO2 of 68 and a pO2 of 49. This was on room air. Chemistry showed normal electrolytes. BUN was 6 with a creatinine of 0.4. Glucose is 133. Calcium was 8.1, phosphorus 3.6, magnesium 1.7. Liver enzymes are normal. Troponin levels mildly elevated, ranging from 0.21-0.74. BMP is normal at 119. Albumin is 3.1. Urines are unremarkable. No microbiology specimens available for comment. ASSESSMENT: 1. Status post hypotensive episode, initially refractory to IV fluid hydration. The patient received an excess of 5 L of fluid. This morning, her blood pressure seems to have stabilized. The patient does have mild elevation of troponins, but is unlikely that she had a coronary event. She will likely be seen by Cardiology. She does remain on heparin, but this likely can be discontinued soon. Plan would be is to taper steroids as her blood pressure normalizes. In all likelihood, she had a reaction to Versed and fentanyl at the time of placement of her right chest wall port. 2. History of breast cancer, left breast. The patient is scheduled to start chemotherapy, hence the port was placed. According to the patient, this will be followed by a mastectomy. 3. Past history of lung cancer, likely secondary to cigarette smoking, status post lobectomy many years ago. She appears to be in remission. 4. History of hypothyroidism. Continue thyroid replacement therapy. 5. History of chronic obstructive pulmonary disease. Continue inhalation therapy. 6. Anemia, likely worsened by IV fluid hydration. The patient has had approximately 4.5 L of fluid over the last 24 hours. PLAN: 1. From a renal standpoint, the patient is entirely stable. I would continue IV fluid hydration until it was certain that her blood pressure would remain in a normal range of IV fluids, fluids can be tapered. I am okay with continued use of lactated Ringer's. 2. Cardiology evaluation for her elevated troponin levels. 3. Continue to monitor labs as long as she is receiving large amounts of IV fluid hydration. 4. Continue thyroid replacement therapy. 5. Continue to monitor accurate I's and O's. 6. Case discussed with ICU house staff and ICU nurse. Thank you for letting me partake and share in the care of your patient. Freeman Gregory MD [facility] # [id number]
[2017-12-18] MEDS: Morphine 4 mg/ml ISec IVP PRN ×2 (09:32→18:01)
[2017-12-18] MEDS: Lactated Ringer's 1,000 ML IV SCH ×2 (09:40)
--- NOTE | 2017-12-18 10:07 | RAD ---
HISTORY: Sepsis Patient COMPARISON: 08/22/2013 FINDINGS: LUNGS: The lungs have a hyperaerated appearance consistent with COPD. PLEURA: No significant pleural effusion identified, no pneumothorax apparent. CARDIOVASCULAR: Normal. OSSEOUS STRUCTURES: No significant abnormalities. VISUALIZED UPPER ABDOMEN: Normal. OTHER FINDINGS: Right-sided Port-A-Cath IMPRESSION: COPD. No acute findings
--- NOTE | 2017-12-18 10:19 | CP.PCM.PN ---
Subjective - Date & Time of Evaluation Date of Evaluation: 12/18/17 Time of Evaluation: 07:40 - Subjective Subjective: Pt seen and examined, reports no major complaints, denies fever, chills, cough, CP, SOB. Objective - Vital Signs/Intake and Output Vital Signs (last 24 hours): Temp Pulse Resp BP Pulse Ox 97.7 F 77 26 H 99/60 L 99 12/18/17 04:00 12/18/17 09:40 12/18/17 07:50 12/18/17 09:40 12/18/17 07:50 Intake and Output: 12/18/17 12/18/17 06:59 18:59 Intake Total 5060 Output Total 350 800 Balance -350 4260 - Medications Medications: Current Medications Albuterol/Ipratropium (Duoneb 3 Mg/0.5 Mg (3 Ml) Ud) 3 ml IH Q2H PRN PRN Reason: Shortness of Breath Albuterol/Ipratropium (Duoneb 3 Mg/0.5 Mg (3 Ml) Ud) 3 ml IH [id number] [facility] Arformoterol Tartrate (Brovana) 15 mcg IH [id number] [facility] Aspirin (Aspirin Chewable) 81 mg PO DAILY [facility] Last Admin: 12/18/17 09:42 Dose: 81 mg Budesonide (Pulmicort Respules) 1 mg IH [id number] [facility] Clopidogrel Bisulfate (Plavix) 75 mg PO DAILY [facility] Last Admin: 12/18/17 09:41 Dose: 75 mg Lactated Ringer's (Lactated Ringer's) 1,000 mls @ 125 mls/hr IV .Q8H [facility] Last Admin: 12/18/17 09:40 Dose: 125 mls/hr Ketorolac Tromethamine (Toradol) 15 mg IVP Q6H PRN PRN Reason: Pain, moderate (4-7) Levothyroxine Sodium (Synthroid) 25 mcg PO 0600 [facility] Last Admin: 12/18/17 06:16 Dose: 25 mcg Metoprolol Tartrate (Lopressor) 12.5 mg PO DAILY [facility] Last Admin: 12/18/17 09:40 Dose: Not Given Morphine Sulfate (Morphine) 2 mg IVP Q6H PRN PRN Reason: Pain, severe (8-10) Last Admin: 05/05/18 09:32 Dose: 2 mg - Labs Labs: 12/18/17 05:00 12/18/17 05:00 PT 12.3 SECONDS (9.4-12.5) 12/17/17 21:35 INR 1.08 (0.93-1.08) 12/17/17 21:35 APTT 80.5 Seconds (25.1-36.5) H 12/18/17 05:00 - Constitutional Appears: Non-toxic, No Acute Distress - Eye Exam Eye Exam: Normal appearance - ENT Exam ENT Exam: Mucous Membranes Moist - Neck Exam Neck Exam: Full ROM - Respiratory Exam Respiratory Exam: Clear to Ausculation Bilateral, NORMAL BREATHING PATTERN - Cardiovascular Exam Cardiovascular Exam: REGULAR RHYTHM, +S1, +S2 - Extremities Exam Extremities Exam: Full ROM - Neurological Exam Neurological Exam: Alert, Awake, Oriented x3 - Skin Skin Exam: Normal Color, Warm Assessment and Plan - Assessment and Plan (Free Text) Assessment: Pt is 62 year old female with past medical history of breast cancer, lung cancer , hypothyroidism, and COPD presents s/p an allergic reaction and hypotensive episode at [facility]. Currently afebrile, HD stable, comfortable in NAD, SBP ranging 80-100, awake, alert, s/p IVF bolus. EKG done, no STT changes. Cardiac enzymes ordered for follow up, cardiology consulted, and case discussed. COPD Hx Breast Ca Hx of Lung Ca Hypotension, resolved Recommend: - supp o2 as needed - Duonebs PRN - Pulmicort BID - Pul Consult - DC heparin as per cardiology - ASA, Plavix, Statin - would hold BB - Panculture, Ucx, BCx, Procal - IVF hydration - monitor HH - repeat EKG, and cardiac enzymes - follow up cardiology, Dr Naik - GI ppx, - DVT ppx - Stable, transfer to telemetry if cardiac enzymes downtrending, and EKG normal
--- NOTE | 2017-12-18 10:28 | CARD ---
APPROVED REPORT EXAM: Two-dimensional and M-mode echocardiogram with Doppler and color Doppler. INDICATION 2D DIMENSIONS IVSd0.9 (0.7-1.1cm)LVDd4.3 (3.9-5.9cm) PWd0.7 (0.7-1.1cm)LVDs3.5 (2.5-4.0cm) FS (%) 17.6 %LVEF (%)36.8 (>50%) M-Mode DIMENSIONS Left Atrium (MM)3.70 (2.5-4.0cm)Aortic Root2.80 (2.2-3.7cm) Aortic Cusp Exc.2.00 (1.5-2.0cm) Aortic Valve AoV Peak Tkddaumf37.9cm/Maru Peak GR.3mmHg Mitral Valve MV E Qlxbdnmw20.0cm/sMV A Beirycfo39.5cm/sE/A ratio2.4 TDI Lateral E' Peak V8.50cm/sMedial E' Peak V8.11cm/sE/Lateral E'11.3 E/Medial E'11.8 Tricuspid Valve TR Peak Cvxkpjrv334xh/sRAP GEBIIAGQ85upBfZH Peak Gr.49mmHg [id number] LEFT VENTRICLE The left ventricle is normal size. There is normal left ventricular wall thickness. The systolic function is moderately to severely impaired. There is global hypokinesis of the left ventricle. Transmitral Doppler flow pattern is abnormal. No left ventricle thrombus noted on this study. RIGHT VENTRICLE The right ventricle is normal size. There is normal right ventricular wall thickness. The right ventricular systolic function is normal. ATRIA The left atrium size is normal. The right atrium size is normal. AORTIC VALVE The aortic valve is not well visualized. No aortic regurgitation is present. There is no aortic valvular stenosis. MITRAL VALVE The mitral valve is mildly thickened. Mitral regurgitation is mild. There is no mitral valve stenosis. TRICUSPID VALVE There is moderate pulmonary hypertension. GREAT VESSELS The aortic root is normal in size. <Conclusion> The left ventricle is normal size. There is normal left ventricular wall thickness. The systolic function is moderately to severely impaired. There is global hypokinesis of the left ventricle. There is moderate pulmonary hypertension. Mitral regurgitation is mild.
[2017-12-18] MEDS ORDERED: Lactated Ringer's 1,000 ML IV SCH (11:45)
[2017-12-18] MEDS: Pantoprazole 40 mg EC Tab PO SCH (11:54)
--- NOTE | 2017-12-18 12:25 | RAD ---
HISTORY: COPD, Shortness of Breath. COMPARISON: 12/17/2017 FINDINGS: LUNGS: There is a patchy infiltrate at the left lung base. Chronic interstitial infiltrate PLEURA: No significant pleural effusion identified, no pneumothorax apparent. CARDIOVASCULAR: Moderate vascular congestion OSSEOUS STRUCTURES: No significant abnormalities. VISUALIZED UPPER ABDOMEN: Normal. OTHER FINDINGS: None. IMPRESSION: Moderate vascular congestion. Chronic interstitial infiltrate. New patchy infiltrate at the left lung base
[2017-12-18] MEDS ORDERED: MethylPREDNISolone 40 mg Vial IVP STA (12:28)
[2017-12-18] MEDS: Albuterol-Ipratrop 3 mg / 0.5 (3 ml) UD IH SCH ×3 (12:32→20:01)
[2017-12-18 12:40] LABS: FREE T4 1.18 ng/dL (0.78-2.19)
--- NOTE | 2017-12-18 13:10 | CARD ---
APPROVED REPORT EKG Measurement Heart [id number] <Conclusion> Sinus rhythm with premature atrial complexes Nonspecific T wave abnormality Abnormal ECG
--- NOTE | 2017-12-18 17:49 | CARD ---
APPROVED REPORT EKG Measurement Heart [id number] [place] [id number] <Conclusion> Normal sinus rhythm Normal ECG
[2017-12-18] MEDS: Megestrol Acetate 40 mg/ml Cup PO SCH (17:52)
--- NOTE | 2017-12-18 17:57 | CARD ---
APPROVED REPORT EKG Measurement Heart [id number] <Conclusion> Normal sinus rhythm Normal ECG
[2017-12-18] MEDS: Arformoterol 15 mcg/2 ml Inh Sol IH SCH (20:01)
[2017-12-18] MEDS: Budesonide 0.5 mg/2 ml Inhal Susp UD IH SCH (20:02)
--- NOTE | 2017-12-18 21:31 | CON ---
DATE: 12/18/2017 PULMONARY CONSULTATION HISTORY OF PRESENT ILLNESS: We were asked by Dr. David Soto, 411 directory assistance operator to evaluate and treat this 62-year-old female who was admitted to [facility] with chief complaints of fatigue, shortness of breath and hypotension. Patient was transferred from interventional procedures to emergency room due to throat tightness and found to have low blood pressure. Her main arterial pressure was in 40s. Due to suspicion for allergic reaction, she was given Benadryl, Pepcid and Solu-Medrol. Blood pressure has improved to 100. The patient reported her usual blood pressure is around 100. She continued to complain on and off chest tightness; so, electrocardiogram was done, cardiac enzymes were drawn. She was also given respiratory treatment. Her private oncologist is Dr. Rodriguez and interventionalist who is placing a port-a-cath is Dr. Jason Perez. PAST MEDICAL HISTORY: Right lung CA, status post lobectomy 18 years ago; recent diagnosis of left breast cancer stage III. In addition to that, she has a history of chronic obstructive pulmonary disease. SOCIAL HISTORY: She is a former smoker. Does not use alcohol, never used illicit drugs. FAMILY HISTORY: Negative for inherited diseases. HOME MEDICATIONS: Include Ventolin, QVAR and Spiriva. REVIEW OF SYSTEMS: Was conducted by reviewing all sources. RESPIRATORY: See history of present illness. CARDIOVASCULAR: Positive for chest tightness and palpitations. GASTROINTESTINAL: Negative. The rest of the systems were reviewed and found to be negative. PHYSICAL EXAMINATION: GENERAL: She is currently awake, alert, in mild respiratory distress. VITAL SIGNS: Temperature is 98.1; pulse is 88; respirations 24; blood pressure is 100/59; pulse oximetry, currently on nasal cannula is 97%. HEAD: Normocephalic and atraumatic. NECK: Supple with no adenopathy, no jugular vein distentions. CARDIOVASCULAR: S1 and S2. No S3, regular. Tachycardia. PULMONARY: Diminished breath sounds at both lung bases with no rhonchi, rales or wheezing. GASTROINTESTINAL: Soft, nontender. No organomegaly. EXTREMITIES: No cyanosis or pedal edema. SKIN: Clear with no skin rashes. NEUROLOGIC: No focal deficits. Additional data reviewed. Review of the chest x-ray, which was done moments ago, this revels findings consistent with chronic obstructive pulmonary disease, mild hyperinflation with flattening of diaphragm. The heart is not enlarged. There is no congestive changes, no infiltrates or effusions. LABORATORY DATA: On admission, WBCs are 15, hemoglobin of 11.2, platelet count 219,000. Sodium 136, potassium 4. Her venous blood gas showed reduced pH and elevated pCO2 that is again consistent with her diagnosis of chronic obstructive pulmonary disease. ASSESSMENT: 1. Hypotension, rule out myocardial infarction. 2. Positive troponins. 3. Chronic obstructive pulmonary disease with exacerbation. 4. Carbon dioxide retention. PLAN: The patient was started on albuterol and Ipratropium inhalations. She was given a dose of steroids, which I agree with. We will continue with bronchodilators and change nebulizer treatment to Brovana and budesonide and this way, we can restart the Spiriva. Her condition remains extremely guarded with no longer critical. Chin Durand MD MTDD
[2017-12-18] MEDS ORDERED: MethylPREDNISolone 40 mg Vial IVP SCH (22:00)
[2017-12-18] MEDS: MethylPREDNISolone 40 mg Vial IVP SCH (22:39)
--- NOTE | 2017-12-18 23:00 | CON ---
DATE: 12/18/2017 LOCATION: The patient in ICU room 128, bed 6. REASON FOR CONSULTATION: Hypotension, shortness of breath, troponin elevation, pain in the posterior cervical area, history of COPD, history of carcinoma of the breast. HISTORY OF PRESENT ILLNESS: Patient is a 62-year-old female, known case of COPD, recently also found to have carcinoma of the breast on the left, for which they are planning to give chemotherapy which will be followed by surgery. Patient yesterday had placement of Port-A-Cath and patient developed hypotension, which has lasted 5 to 6 hours despite giving 5L of fluid. Patient was transferred to intensive care unit where the blood pressure has now stabilized. Patient is also complaining of shortness of breath. She denies any chest pain. She did have pain in the posterior cervical area, but it gets worse on moving side to side, also has some tenderness. So, this is musculoskeletal type of pain. Patient is known to have hypothyroidism and anemia. Patient denied any exertional chest pain in the past. PAST MEDICAL HISTORY: Significant for COPD. Patient had carcinoma of the lung with right lung lobectomy in the past, hypothyroidism, anemia. Patient is now found to have CA of the breast as mentioned above. ALLERGIES: PATIENT DENIES ANY ALLERGIES. PERSONAL HISTORY: Patient has been a heavy smoker till recently. She just stopped. Denies drinking. FAMILY HISTORY: Not significant. MEDICATIONS AT HOME: Patient was taking nebulizer therapy, Synthroid, Ventolin, Chantix. REVIEW OF SYSTEMS: All the systems reviewed, positive mentioned in the history, others were negative. PHYSICAL EXAMINATION: VITAL SIGNS: Blood pressure this morning 107/47, respirations 26, pulse 83. Patient is afebrile. HEENT: Head is normocephalic. Eyes; pupils normal, conjunctivae slightly pale. NECK: JVP low. Carotids equal. THORAX: AP diameter has slightly increased. LUNGS: No rales. CARDIOVASCULAR: S1 and S2. ABDOMEN: Soft. No tenderness. No organomegaly. EXTREMITIES: No clubbing. No cyanosis. No edema. LABORATORY DATA: WBC 9.1, hemoglobin 10.7, hematocrit 31.5. Yesterday, hemoglobin on admission was 11.2 and hematocrit 32.9. This fall in hemoglobin and hematocrit reflects hydration. Patient received 5 L of fluid. Platelets 232. Sodium 141, potassium 4.1, BUN 6, creatinine 0.4, random glucose 133, calcium 8.1, phosphorus 3.6, magnesium 1.7. AST, ALT normal. Troponin initial 0.21, second one 0.64, third one 0.74, NT-pro B natriuretic peptide 119, total protein 5.6, albumin 3.1. Chest x-ray consistent with emphysematous changes. EKG showed regular sinus rhythm. Patient had echocardiogram done this morning and it showed LV ejection fraction of 37% and RVSP of 59 mmHg, suggestive of cardiomyopathy and pulmonary hypertension. DIAGNOSES: Hypotension, probably related to patient getting Versed and fentanyl. Troponin elevation may be related to the hypotension episode. Patient denied any chest pain. Chronic obstructive pulmonary disease, carcinoma of the breast, troponin elevation. 1. Hypotension, probably due to fentanyl and Versed therapy. 2. Non-ST elevation myocardial infarction related to severe hypotension episode. 3. Chronic obstructive pulmonary disease. 4. Carcinoma of breast. 5. Dehydration. 6. Cardiomyopathy. 7. Pulmonary hypertension. PLAN: Patient's blood pressure is now better, so we will start Lopressor 12.5 mg b.i.d., monitoring the heart rate and blood pressure. Patient is already on aspirin 81 mg daily. We will also put Plavix 75 mg daily. Patient is getting levothyroxine 25 mcg daily. Patient is getting lactated Ringer 125 mL an hour, will cut down to 100 mL an hour and we will do a MUGA scan to evaluate proper LV ejection fraction and we will do followup labs. We will repeat troponin again. Patient is to be seen by Dr. Stubbs for pulmonary evaluation and we will follow with you. Lolis Naik MD
[2017-12-19] MEDS: Albuterol-Ipratrop 3 mg / 0.5 (3 ml) UD IH SCH ×4 (02:36→19:48)
[2017-12-19] MEDS: Morphine 4 mg/ml ISec IVP PRN ×4 (03:30→23:56)
[2017-12-19] MEDS: MethylPREDNISolone 40 mg Vial IVP SCH ×3 (06:15→18:19)
[2017-12-19] MEDS: Levothyroxine 25 MCG TAB PO SCH (06:16)
[2017-12-19 06:25] LABS: GRAN # 9.5 (1.4-6.5); GRAN % 86.4 % (50.0-68.0); HEMOGLOBIN 11.1 g/dL (12.0-16.0); LYMPH # 0.8 (1.2-3.4); LYMPH % 7.6 % (22.0-35.0); MEAN CELL VOLUME 91.1 fl (80.0-105.0); MEAN CORPUSCULAR HEMOGLOBIN 31.9 pg (25.0-35.0); MEAN PLATELET VOLUME 9.4 fl (7.0-11.0); MONO # 0.7 (0.1-0.6); RBC 3.48 10^6/uL (3.5-6.1); RED CELL DISTRIBUTION WIDTH 12.4 % (11.5-14.5)
[2017-12-19 07:10] LABS: TROPONIN I 0.38 ng/mL
[2017-12-19] MEDS: Arformoterol 15 mcg/2 ml Inh Sol IH SCH ×2 (07:30→19:48)
[2017-12-19] MEDS: Budesonide 0.5 mg/2 ml Inhal Susp UD IH SCH ×2 (07:31→19:48)
--- NOTE | 2017-12-19 07:41 | HP ---
LOCATION: Patient is in ICU, bed 6. 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 Patient's procedure went through. She was administered Versed prior to the insertion of the Port-A-Cath, but when she woke up after the procedure, patient was found to be gasping for air and hypotensive. It was unclear at the time whether she had an allergic reaction to the drug or whether the patient was having an evolving cardiac event and patient was given resuscitation with intensive IV therapy and she was transferred to the emergency room, where I spoke to the ER physician and to the residential sales and patient was admitted overnight to the ICU for further observation and management. This is in the background history of the patient having significant COPD from many years of smoking. Patient just recently quit smoking about a month ago, after seeing Dr. Trinidad, and she was taking Chantix to quit smoking, along with that she has also been prescribed inhalers by him. She had done pulmonary function test and she had failed the testing as far as plan for any surgical procedure, as far as resection of the breast tumor was concerned. 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 After 28 days' rest, patient underwent surgical resection, primary resection. 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 Patient is also hypothyroid, for which she is on Synthroid. SOCIAL HISTORY: Patient is a former smoker, just quit smoking recently. Denies any alcohol or drug abuse. MEDICATIONS: Patient's home medications were reviewed and home medications include Chantix 0.5 mg b.i.d. She was on Stiolto Respimat inhalation spray 2 puffs inhaled once a day, morphine sulfate 30 mg every 4 hours p.r.n., morphine sulfate 30 mg every 8 hours as needed, levothyroxine 25 mcg daily. She was on QVAR 40 mcg daily. She was on albuterol sulfate/Ventolin HFA 1 puff inhaled p.r.n. as needed for shortness of breath and she was also on extended release morphine 30 mg every 12 hours. REVIEW OF SYSTEMS: A 12-system review was done except for the shortness of breath, which is improving and coughing that is improving since quitting the smoking and using the inhalers. Patient is feeling relatively well and was anticipating getting started with the treatment once the port was inserted, but unfortunately had to be admitted with the aforementioned turn of events. The 12-system review was negative except for what is mentioned in the HPI. PHYSICAL EXAMINATION: GENERAL: Patient is awake, alert, and oriented. Sitting out of bed in the chair. Earlier this morning, she was short of breath. IVs were tapered and patient received 1 dose of Lasix, as there was appearance of vascular congestion on the chest x-ray and she is feeling whole lot better by the time I saw her this morning. Patient is cachectic. Temporal muscle wasting is noted. VITAL SIGNS: Today, reveals T-max of 98.1, pulse is 88, respirations 18, blood pressure 100/59, pulse ox is 99. HEENT: Head is normocephalic, atraumatic. Conjunctivae pale. Sclerae is anicteric. Pupils are equally reactive to light and accommodation. Examination of the oropharynx reveals poor dentition. Tongue is moist. No ulcerations are noted. NECK: Supple. There is no adenopathy. LUNGS: Reveals it to be clear to percussion and auscultation with prolonged expiratory phase of breathing. CARDIOVASCULAR: Reveals S1 and S2 to be normal. No gallop or murmur is heard. ABDOMEN: Soft, scaphoid, nontender. EXTREMITIES: Reveal no cyanosis, clubbing or edema. GENITOURINARY AND RECTAL: Deferred. BACK: Reveals spine to be normal. No paraspinal tenderness is noted. NEUROLOGIC: Reveals the patient to be awake, alert, and oriented, in no acute distress. SKIN: Skin turgor is normal. No skin lesions are noted. LYMPHATIC: There is no evidence of adenopathy in the neck, axilla or groin. Patient has a palpable mass in the left breast, which is occupying at least the most of the breast. It is movable in both directions, but still appears to be very closely adherent to the underlying muscle. Breasts are atrophic. Mass is less than 3 cm in size. LABORATORY DATA: Lab data from review of today revealed white count of 15, hemoglobin 11.2, hematocrit 32, platelet count 219,000. Sodium 136, K is 4, chloride 104, CO2 23, BUN 6, creatinine 0.4, blood sugar is 91. Urinalysis is unremarkable. ASSESSMENT NOTES AND PLAN: This is a 62-year-old female with pertinent history of stage III left breast cancer, ER/HI positive, HER-2/heidi positive, history of Pancoast tumor of the right lung, status post resection, advanced chronic obstructive pulmonary disease with very poor pulmonary function test. Admitted to the hospital after being in the Same Day Surgery for insertion of the right venous access device placed into the internal jugular vein, presented with hypotension, probably after undergoing conscious sedation. Patient's mean arterial pressure would not go above 51 while she was in the Same Day Surgery, responded with IV boluses and is overall better at this time. PLAN: Patient will still remain in the ICU. Her most recent bedside ejection fraction was reported to be 38% on the echocardiogram. Her echocardiogram prior to this done as an outpatient at [facility] just less than a month ago was 56%. Troponins are mildly abnormal and I discussed my findings with the residential sales. In view of this, patient may need to have a cardiac status checked out because of the drop in the ejection fraction even prior to initiation of therapy. The [employer] is going to be contacted and hopefully that would be also addressed prior to administering further treatment. TSH will be monitored while the patient is in the unit. Patient will continue the stay in the unit till she is stabilized. Discussed all findings in detail with the patient, spoke to the ICU attending and to the ICU resident as well. We will monitor the patient carefully over the next 48 hours. Routine post-exam instructions have been given to the patient. Patient is also going to be started on Megace for her appetite and cachexia. Jaylyn Rodriguez MD
[2017-12-19] MEDS ORDERED: Magnesium Sulfate 2 GM in Sodium Chloride 0.9% 100 ML IVPB ONE (08:28)
--- NOTE | 2017-12-19 08:46 | RAD ---
HISTORY: eleavted trop COMPARISON: 12/18/2017 FINDINGS: LUNGS: There is improvement in the left lower lobe infiltrate and bilateral interstitial infiltrates. There is decreased vascular congestion PLEURA: No significant pleural effusion identified, no pneumothorax apparent. CARDIOVASCULAR: Normal. OSSEOUS STRUCTURES: No significant abnormalities. VISUALIZED UPPER ABDOMEN: Normal. OTHER FINDINGS: None. IMPRESSION: There is improvement in the left lower lobe infiltrate and bilateral interstitial infiltrates. There is decreased vascular congestion
[2017-12-19 09:30] LABS: ALB/GLOB RATIO 1.2 (1.1-1.8); ALBUMIN 3.3 g/dL (3.0-4.8); ALT/SGPT 30 U/L (7-56); AST/SGOT 45 U/L (14-36); BLOOD UREA NITROGEN 7 mg/dL (7-21); CALCIUM 8.7 mg/dL (8.4-10.5); GFR AFRICAN-AMERICAN > 60; GFR NON-AFRICAN AMERICAN > 60
--- NOTE | 2017-12-19 10:04 | CP.PCM.PN ---
Subjective - Date & Time of Evaluation Date of Evaluation: 12/19/17 Time of Evaluation: 07:30 - Subjective Subjective: Patient seen and examined on rounds, reports to be doing better than yesterday. Denies resting SOB, CP. Objective - Vital Signs/Intake and Output Vital Signs (last 24 hours): Temp Pulse Resp BP Pulse Ox 98.5 F 72 15 108/52 L 97 12/19/17 00:00 12/19/17 05:50 12/19/17 05:50 12/19/17 06:27 12/19/17 05:50 Intake and Output: 12/19/17 12/19/17 06:59 18:59 Output Total 1999 Balance -1999 - Medications Medications: Current Medications Albuterol/Ipratropium (Duoneb 3 Mg/0.5 Mg (3 Ml) Ud) 3 ml IH Q2H PRN PRN Reason: Shortness of Breath Albuterol/Ipratropium (Duoneb 3 Mg/0.5 Mg (3 Ml) Ud) 3 ml IH [id number] [facility] Last Admin: 12/19/17 07:31 Dose: 3 ml Arformoterol Tartrate (Brovana) 15 mcg IH [id number] [facility] Last Admin: 12/19/17 07:30 Dose: 15 mcg Aspirin (Aspirin Chewable) 81 mg PO DAILY [facility] Last Admin: 12/18/17 09:42 Dose: 81 mg Budesonide (Pulmicort Respules) 1 mg IH [id number] [facility] Last Admin: 12/19/17 07:31 Dose: 1 mg Clopidogrel Bisulfate (Plavix) 75 mg PO DAILY [facility] Last Admin: 12/18/17 09:41 Dose: 75 mg Furosemide (Lasix) 40 mg IVP DAILY [facility] Heparin Sodium (Porcine) (Heparin) 5,000 units SC Q8 [facility] PRN Reason: Protocol Last Admin: 12/19/17 06:16 Dose: 5,000 units Ketorolac Tromethamine (Toradol) 15 mg IVP Q6H PRN PRN Reason: Pain, moderate (4-7) Levothyroxine Sodium (Synthroid) 25 mcg PO 0600 [facility] Last Admin: 12/19/17 06:16 Dose: 25 mcg Megestrol Acetate (Megace) 400 mg PO DAILY [facility] Last Admin: 12/18/17 17:52 Dose: 400 mg Methylprednisolone (Solu-Medrol) 40 mg IVP BID [facility] Morphine Sulfate (Morphine) 2 mg IVP Q6H PRN PRN Reason: Pain, severe (8-10) Last Admin: 12/19/17 03:30 Dose: 2 mg Pantoprazole Sodium (Protonix Ec Tab) 40 mg PO DAILY [facility] Last Admin: 12/18/17 11:54 Dose: 40 mg - Labs Labs: 12/19/17 05:30 12/19/17 05:30 PT 12.3 SECONDS (9.4-12.5) 12/17/17 21:35 INR 1.08 (0.93-1.08) 12/17/17 21:35 APTT 30.9 Seconds (25.1-36.5) 12/18/17 22:25 - Constitutional Appears: Non-toxic, No Acute Distress, Cachectic, Chronically Ill - Eye Exam Eye Exam: Normal appearance - ENT Exam ENT Exam: Mucous Membranes Moist - Neck Exam Neck Exam: Full ROM - Respiratory Exam Respiratory Exam: Clear to Ausculation Bilateral, NORMAL BREATHING PATTERN - Cardiovascular Exam Cardiovascular Exam: REGULAR RHYTHM, +S1, +S2 - GI/Abdominal Exam GI & Abdominal Exam: Soft, Normal Bowel Sounds - Neurological Exam Neurological Exam: Alert, Awake, Oriented x3 Assessment and Plan - Assessment and Plan (Free Text) Assessment: Pt is 62 year old female with past medical history of breast cancer, lung cancer , hypothyroidism, and COPD presents s/p an allergic reaction and hypotensive episode at [facility]. Currently afebrile, HD stable, comfortable in NAD, SBP ranging 90-100, awake, alert. Pt had repeat ECHO yesterday, EF 35%. EKG done, no STT changes. Cardiac enzymes downtrending. COPD exacerbation Hx Breast Ca Hx of Lung Ca Hypotension, resolved CHF Recommend: - supp o2 as needed - Duonebs PRN - Pulmicort BID - Solumedrol 40mg BID - Pulm Consult - ASA, Plavix, Statin - BB - Panculture, Ucx, BCx, Procal - Lasix 40mg PO daily - monitor HH - follow up cardiology, Dr Naik - GI ppx, - DVT ppx - Stable, transfer to telemetry
[2017-12-19] MEDS: Megestrol Acetate 40 mg/ml Cup PO SCH (10:22)
[2017-12-19] MEDS: Pantoprazole 40 mg EC Tab PO SCH (10:23)
--- NOTE | 2017-12-19 13:44 | PN ---
DATE: 12/19/2017 PULMONARY PROGRESS NOTE: SUBJECTIVE: The patient was seen and examined in intensive care unit. This morning, she is resting comfortably. She is not in respiratory distress. She is receiving inhalation therapy with Brovana and budesonide, and she is also on Solu-Medrol. PHYSICAL EXAMINATION: VITAL SIGNS: Her temperature is 98.5, pulse rate 72, respirations 18, and blood pressure 108/52. Her intake and output is -1200. HEAD, EARS, NOSE, AND THROAT: Within normal limits. NECK: Supple with no jugular vein distention. CARDIOVASCULAR: S1, S2. No S3. Regular. PULMONARY: Diminished breath sounds bilaterally. GI: Soft and nontender. No organomegaly. EXTREMITIES: No pedal edema. SKIN: No acute skin rash. NEUROLOGIC: The patient is anxious. LABORATORY DATA: Reviewed by me. Her potassium is reduced to 3.3. Kidney functions are normal. Her cardiac troponin is still positive at 0.38 and it was 0.8 yesterday. WBC 11, hemoglobin 11.1. I reviewed today's chest x-ray and compared it to yesterday's chest x-ray. There is some improvement in bilateral interstitial changes, it was probably caused by pulmonary vascular congestion, the left lower lobe congestion or infiltrate has improved as well. ASSESSMENT: 1. Myocardial infarction. 2. Exacerbation of severe chronic obstructive pulmonary disease. 3. Rule out left lower lobe pneumonia. 4. Congestive heart failure. PLAN: As per above, we will continue with current intervention. Chin Durand MD
--- NOTE | 2017-12-19 15:11 | CARD ---
APPROVED REPORT EKG Measurement Heart [id number] ND [id number] <Conclusion> Normal sinus rhythm ST & T wave abnormality, consider inferior ischemia Prolonged QT Abnormal ECG
--- NOTE | 2017-12-19 15:18 | PN ---
DATE: 12/19/2017 LOCATION: The patient in ICU bed 6. REASON FOR CONSULTATION AND FOLLOWUP: Hypotension, shortness of breath, troponin elevated, [id number] myocardial infarction, probably related episode of hypotension, pain in the posterior cervical area, history of COPD, history of carcinoma of the breast, CHF. SUBJECTIVE: The patient denies any chest pain. No palpitation. She says her breathing compared to yesterday is much better. PHYSICAL EXAMINATION: VITAL SIGNS: Blood pressure 108/52, respirations 15, pulse 72, the patient is afebrile. HEENT: Head is normocephalic. Eyes: Pupils normal. Conjunctivae slightly pale. NECK: JVP low. Carotids equal. THORAX: AP diameter slightly increased. LUNGS: Few rales, left base. CARDIOVASCULAR: S1 and S2. ABDOMEN: Soft. No tenderness. No organomegaly. Bowel sound normal. EXTREMITIES: No clubbing. No cyanosis. LABORATORY DATA: WBC 11, hemoglobin 11.1, hematocrit 31.7, platelet 221. Sodium 139, potassium 3.3, BUN 7, creatinine 0.4. Initial first troponin 0.64, second is 0.74, third one 0.80 and today 0.38, so it is trending downward. Magnesium 1.6. AST 45, ALT 30, TSH is 1.55, free T4 is 1.18. Chest x-ray yesterday showed emphysema and congestion. Today's chest x-ray showed improvement in the left lower lobe infiltrate and bilateral interstitial infiltrates. Also, decreased vascular congestion. Echo on 12/18/2017 showed LV ejection fraction of 37%, RVSP 59 mmHg. DIAGNOSES: 1. Hypotension, probably due to fentanyl and Versed therapy for Port-A-Cath insertion. 2. [id number] myocardial infarction, probably related to severe hypotension for almost 5 hours. 3. Chronic obstructive pulmonary disease. 4. Carcinoma of breast. 5. Dehydration. 6. Cardiomyopathy. 7. Pulmonary hypertension. 8. Hypokalemia. 9. Hypomagnesemia. PLAN: We will give potassium therapy and magnesium therapy. We will repeat the lab in the morning and also the patient has been requested for a MUGA scan to evaluate LV ejection fraction properly. The patient is on aspirin 81 mg daily, heparin 5000 units subcu every 8 hours, furosemide 40 mg IV daily, mag sulfate already IV given. We will repeat labs in the morning. MUGA scan has been already requested to evaluate the LV ejection fraction. We will also repeat chest x-ray in the morning to see further improvement. The patient is on aspirin 81 mg daily; heparin 28 units IV once was given, then 5000 units subcu every 8 hours; furosemide 40 IV daily; mag sulfate 2 g bolus has been already requested; Megestrol 400 mg p.o. daily; Plavix 75 daily; potassium 20 mEq IV has been already ordered by Dr. Rodriguez; methylprednisolone 40 mg IV b.i.d.; levothyroxine 25 mcg p.o. daily. We will follow with you closely. A MUGA scan has been ordered, hopefully it will be done tomorrow morning. Lolis Naik MD
--- NOTE | 2017-12-19 19:58 | PN ---
DATE: 12/19/2017 LOCATION: The patient is in ICU, bed 6. PROBLEMS: This is a 62-year-old female who has come in electively for placement of a venous port on the right side in preparation for neoadjuvant therapy for a newly-discovered stage III carcinoma of the left breast. ER, ND positive. HER-2/heidi positive by FISH. While in the same-day surgery after the placement of a port after receiving conscious sedation, the patient had developed persistent hypotension postprocedure where the systolic never porsha above 70. It was unclear whether this was an idiosyncratic reaction to the conscious sedation or whether she was developing other symptoms related to underlying cardiac and pulmonary events. The patient was admitted and aggressively treated with IV fluids. Labs and enzymes and cardiac enzymes were drawn and the patient was admitted to the unit and has been gradually improving. Yesterday, the patient was found to be fluid overloaded. IV fluids were stopped. The patient got IV Lasix and then the patient had serial cardiac enzymes and troponins level drawn, which have been persistently abnormal, but have been trending down. Ejection fraction done in the unit showed ejection fraction of 38%, which is down from the prior recorded ejection fraction of 56%, which was done just a month ago at [facility]. This was done in preparation for her planned chemotherapy. SUBJECTIVE: The patient feels better today. She denies any shortness of breath or chest pain. She felt like eating today. She feels that she has been urinating a lot and she has put out at least a liter and a half since this morning after she got an extra dose of IV Lasix. PHYSICAL EXAMINATION: VITAL SIGNS: The patient's T-max is 98.5, pulse of 72, respirations 15, blood pressure is 108/52, pulse ox is 97%. GENERAL: The patient is awake, alert, and oriented, in no acute distress, nontoxic looking, chronically ill. HEENT: Temporal muscle wasting. Conjunctivae pale. Sclerae are anicteric. Pupils are equally reactive to light and accommodation. Examination of the oropharynx reveals poor dentition. Mucous membranes are moist. Tongue does show no ulceration. NECK: Supple. There is no adenopathy. No jugular venous distention noted. LUNGS: Clear to percussion and auscultation. HEART: Reveals PMI to be in the fifth intercostal space inside the midclavicular line. S1 and S2 are normal. No gallop or murmur is heard. ABDOMEN: Soft, nontender. Bowel sounds are present. NEUROLOGIC: Reveals higher functions to be normal. No focal deficits are noted. LABORATORY DATA: Reviewed. The patient's white count is 11, hemoglobin 11.1, hematocrit 31.7, and platelet count 221,000. Sodium is 139, K is 3.3, chloride 98, CO2 of 31. BUN of 7, creatinine 0.4. Blood sugar 138. PT and INR normal limits. Chest x-ray shows improving congestion. PLAN: The patient is going to continue her current medications which are Solu-Medrol 40 b.i.d., ASA, Plavix, statin. The patient had pancultures including blood cultures, urine cultures, and procalcitonin, which is pending. Lasix, the patient is getting 40 mg daily. I spoke to Dr. Naik and the patient is going to get MUGA scan tomorrow and then they are going to decide whether she needs a modified stress test or cardiac cath to account for the drop in the ejection fraction. We will continue with GI and DVT prophylaxis and the patient if stable maybe transferred to telemetry. ASSESSMENT: The patient has chronic obstructive pulmonary disease exacerbation, history of breast cancer, history of lung cancer, hypotension resolved, congestive heart failure. Reduced ejection fraction, etiology to be determined. I spent 45 minutes with the patient, discussing with her and her sister who is with her today. Jaylyn Rodriguez MD
[2017-12-20] MEDS: Morphine 4 mg/ml ISec IVP PRN ×5 (04:10→20:18)
[2017-12-20 07:35] LABS: BLOOD UREA NITROGEN 10 mg/dL (7-21); CALCIUM 8.6 mg/dL (8.4-10.5); GFR AFRICAN-AMERICAN > 60; GFR NON-AFRICAN AMERICAN > 60
[2017-12-20] MEDS: Levothyroxine 25 MCG TAB PO SCH (07:38)
[2017-12-20] MEDS: Albuterol-Ipratrop 3 mg / 0.5 (3 ml) UD IH SCH ×4 (07:40→19:25)
[2017-12-20] MEDS: Arformoterol 15 mcg/2 ml Inh Sol IH SCH ×2 (07:40→19:25)
[2017-12-20] MEDS: Budesonide 0.5 mg/2 ml Inhal Susp UD IH SCH ×2 (07:40→19:25)
--- NOTE | 2017-12-20 08:52 | PQF MALNUT ---
This form is a permanent part of the medical record Clarification of your documentation is requested to better reflect the severity of illness and intensity of treatment of your patient. Indicators present Pt w/ Hx CA, poor appetite, BMI 15.4. Dietary consult notes acuity as high- Level 3. Ensure ordered 3x day. Please document if you are treating Malnutrition POA. Please note type & severity in your notes. [x] Cachexia (due to severe malnutrition) [] Albumin < 2.8 [] Decreased Pre-albumin [x] Dietary Consult [x] Provider documentation reflects BMI of: []_15.4 [] Low serum proteins [x] Documented weight loss [x] Inability to consume adequate caloric intake [x] Anorexic [] Other: [] Location in the medical record that reflects the above clinical findings: [x] Dietary consult Treatment Provided: [] Ensure 3x day PHYSICIAN'S RESPONSE Based on your medical judgment of the clinical indicators outlined above, are you treating this patient for a known or suspected: Type of Malnutrition Severity [] Mild [x] Moderate [] Severe [] Protein calorie [] Mild [x] Moderate [] severe [] Other, please indicate: []_ [] If Unable to Determine, please check the box, sign and date. Present On Admission (POA) Indicator: [x] Present at the time of admission [] Not present at the time of admission [] Clinically Undetermined In responding to this query, please exercise your independent professional judgment. The fact that a question is asked does not imply that any particular answer is desired or expected. Thank you for your clarification on this documentation. If you have any questions please call:[ ][phone] * Thank you, [ ]Jeimy Hurtado RN CDS termite exterminator helper Malnutrition Malnutrition results from an imbalance between the body's intake of nutrients and the body's use of nutrients to fuel energy expenditure. Malnutrition may be described as mild, moderate or severe. There are variations in clinical indicators, lab values and risk factors with each type and degree. When reviewing the nutritional status of the client, the entire clinical picture should be assessed and taken into consideration rather than a focus on a single laboratory value. Mild Malnutrition: patient's weight is noted at 85-95% of normal body weight; BMI 18-18.9; serum albumin 3.0-3.4; total lymphocyte count [id number]. Moderate Malnutrition: patient's weight is noted at 75-85% of normal body weight ; BMI 16-17.9; serum albumin 2.4-3.0; total lymphocyte count 800-1500. Severe Malnutrition: patient's weight is noted at <75% of normal body weight, BMI <16, serum albumin <2.4, total lymphocyte count <800, abnormally low VLDL/ LDL levels, creatinine <0.6, BUN <8, cholesterol <160. Other clinical indicators include: loss of subq fat, muscle wasting of the extremities, skin lesions, decubitus ulcers, hair loss, lethargy, constipation, decreased pulse/ respiratory rates, relative hypotension, hepatomegaly d/t fat infiltration, poor wound healing.~~~~~~ Risk: poor intake d/t food avoidance or NPO status for >7 days, protracted nutritional losses from malabsorption states, hypermetabolic state such as sepsis, prolonged fever, extensive trauma or trejo, alcohol/drug abuse, advanced age, CKD, trouble chewing or swallowing, some medications, depression/ social isolation, special diets such as low protein Treatment: dietary consultation, protein-calorie dietary supplementation, daily weights, PEG tube, psychiatric consultation, appetite stimulants (Megace). [employer] Principles of Internal Medicine, 17th edition, chapters 9, 72 and 234. The [employer] Nutrition[employer] Support [employer] Curriculum, 2007 MTDD
--- NOTE | 2017-12-20 09:07 | RAD ---
HISTORY: CHF. Infiltrated to see improvement. COMPARISON: 12/19/2017 FINDINGS: LUNGS: Lungs have a hyperinflated appearance consistent with COPD. PLEURA: No significant pleural effusion identified, no pneumothorax apparent. CARDIOVASCULAR: Normal. OSSEOUS STRUCTURES: No significant abnormalities. VISUALIZED UPPER ABDOMEN: Normal. OTHER FINDINGS: None. IMPRESSION: No active disease.
[2017-12-20] MEDS: Megestrol Acetate 40 mg/ml Cup PO SCH (09:19)
[2017-12-20] MEDS: Pantoprazole 40 mg EC Tab PO SCH (09:19)
[2017-12-20] MEDS: MethylPREDNISolone 40 mg Vial IVP SCH ×2 (09:20→17:14)
--- NOTE | 2017-12-20 11:37 | PN ---
DATE: 12/20/2017 PULMONARY NOTE SUBJECTIVE: The patient appears comfortable this morning. She is not short of breath at rest. She does complain of some nausea. OBJECTIVE: VITAL SIGNS: Temperature is 98.5, pulse is 81, respiratory rate 18, blood pressure 115/53. Oxygen saturation on nasal cannula is 97%. HEENT: Normocephalic, atraumatic. No JVD. CARDIOVASCULAR: Positive S1, S2. No S3 gallop. LUNGS: Decreased breath sounds at the bases. Minimal rhonchi. No wheezing. EXTREMITIES: No clubbing, cyanosis or edema. Calves are nontender to palpation. GASTROINTESTINAL: Abdomen is soft, nontender and nondistended. Bowel sounds are positive. SKIN: No acute rash. NEUROLOGIC: Exam limited at the present time. PERTINENT LABORATORY DATA: Chest x-ray was done this morning and reviewed. There is a definite decrease in the pulmonary edema - compared to the initial films.. There are streaky changes noted at the left lower lobe - also seen on the films done in 2013. IMPRESSION: 1. Hypotension - resolved. 2. Acute myocardial infarction. 3. Pulmonary edema - resolving. 4. Advanced chronic obstructive pulmonary disease. 5. Advanced cardiomyopathy. PLAN: The patient appears comfortable this morning. She is not short of breath at rest. She does state to some nausea. I did discuss the case with the night nurse at length. The night nurse stated that the patient had a very good night. Again, I did review the chest x-ray from this morning. Compared to the initial films done during this admission, the most current film is significantly improved. The pulmonary vascular congestion has almost completely resolved. As above, there are some streaky changes noted at the left lower lobe. These changes have been present for quite a number of years. On physical exam, there is only minimal bronchospasm noted. In addition, there is no significant alveolar-arterial gradient. I will continue with the current nebulizer treatments and low-dose intravenous steroids for now. I would continue with the treatment for acute myocardial infarction and pulmonary edema as per Cardiology. Input by Dr. Naik is noted. The patient remains on Plavix. Her repeat morning labs are pending. The leukocytosis has resolved. The clinical status of the patient is significantly improved - compared to the initial presentation. I will discuss the above with the entire ICU team the next few moments. I will discuss the above the attending physician later this morning. Mitch Stubbs MD MTDD
[2017-12-20] MEDS ORDERED: Sodium Chloride 0.9% 1,000 ML IV SCH (12:00)
--- NOTE | 2017-12-20 12:14 | CP.PCM.PN ---
Subjective - Date & Time of Evaluation Date of Evaluation: 12/20/17 Time of Evaluation: 10:00 - Subjective Subjective: Heme/Onc Progress Note - Dr. Rodriguez Patient was seen and examined at bedside. She has mild complaints of nausea, however overall she feels more comfortable than before. As per nursing staff, pt was uncomfortable overnight with nausea and vomiting meds administered at that time. Pt denied fever, chills, sob, chest pains, abdominal pains, constipation, diarrhea, or dysuria. As per Cardio, postponed cath on account of nausea/vomiting. Objective - Vital Signs/Intake and Output Vital Signs (last 24 hours): Temp Pulse Resp BP Pulse Ox 98.2 F 81 75 H 115/53 L 97 12/20/17 04:00 12/20/17 03:20 12/20/17 03:20 12/20/17 03:00 12/20/17 03:20 Intake and Output: 12/20/17 12/20/17 06:59 18:59 Intake Total 150 Output Total 900 Balance -750 - Medications Medications: Current Medications Albuterol/Ipratropium (Duoneb 3 Mg/0.5 Mg (3 Ml) Ud) 3 ml IH Q2H PRN PRN Reason: Shortness of Breath Albuterol/Ipratropium (Duoneb 3 Mg/0.5 Mg (3 Ml) Ud) 3 ml IH [id number] [facility] Last Admin: 12/20/17 09:18 Dose: Not Given Arformoterol Tartrate (Brovana) 15 mcg IH [id number] [facility] Last Admin: 12/20/17 07:40 Dose: 15 mcg Aspirin (Aspirin Chewable) 81 mg PO DAILY [facility] Last Admin: 12/20/17 09:19 Dose: 81 mg Atorvastatin Calcium (Lipitor) 20 mg PO DIN [facility] Budesonide (Pulmicort Respules) 1 mg IH [id number] [facility] Last Admin: 12/20/17 07:40 Dose: 1 mg Clopidogrel Bisulfate (Plavix) 75 mg PO DAILY [facility] Last Admin: 12/20/17 09:19 Dose: 75 mg Heparin Sodium (Porcine) (Heparin) 5,000 units SC Q8 [facility] PRN Reason: Protocol Last Admin: 12/20/17 06:31 Dose: Not Given Sodium Chloride (Sodium Chloride 0.9%) 1,000 mls @ 50 mls/hr IV .Q20H [facility] Stop: 12/21/17 23:59 Ketorolac Tromethamine (Toradol) 15 mg IVP Q6H PRN PRN Reason: Pain, moderate (4-7) Last Admin: 12/20/17 08:15 Dose: 15 mg Levothyroxine Sodium (Synthroid) 25 mcg PO 0600 [facility] Last Admin: 12/20/17 07:38 Dose: Not Given Megestrol Acetate (Megace) 400 mg PO DAILY [facility] Last Admin: 12/20/17 09:19 Dose: Not Given Methylprednisolone (Solu-Medrol) 40 mg IVP BID [facility] Last Admin: 12/20/17 09:20 Dose: 40 mg Morphine Sulfate (Morphine) 2 mg IVP Q4H PRN PRN Reason: Pain, severe (8-10) Last Admin: 12/20/17 08:19 Dose: 2 mg Ondansetron HCl (Zofran Inj) 4 mg IVP Q4H PRN PRN Reason: Nausea/Vomiting Pantoprazole Sodium (Protonix Ec Tab) 40 mg PO DAILY [facility] Last Admin: 12/20/17 09:19 Dose: 40 mg Potassium Phos/Sodium Phos (Neutra-Phos) 1 pkt PO TID [facility] Stop: 12/21/17 23:00 - Labs Labs: 12/19/17 05:30 12/20/17 06:40 PT 12.3 SECONDS (9.4-12.5) 12/17/17 21:35 INR 1.08 (0.93-1.08) 12/17/17 21:35 APTT 30.9 Seconds (25.1-36.5) 12/18/17 22:25 - Constitutional Appears: No Acute Distress - Head Exam Head Exam: ATRAUMATIC, NORMAL INSPECTION, NORMOCEPHALIC - Eye Exam Eye Exam: EOMI, Normal appearance, PERRL Pupil Exam: NORMAL ACCOMODATION, PERRL - ENT Exam ENT Exam: Mucous Membranes Moist, Normal Exam - Respiratory Exam Respiratory Exam: Decreased Breath Sounds, Rhonchi. absent: Wheezes - Cardiovascular Exam Cardiovascular Exam: REGULAR RHYTHM, +S1, +S2. absent: Murmur - GI/Abdominal Exam GI & Abdominal Exam: Soft, Normal Bowel Sounds. absent: Tenderness - Neurological Exam Neurological Exam: Alert, Awake, CN II-XII Intact, Oriented x3 - Psychiatric Exam Psychiatric exam: Normal Affect, Normal Mood - Skin Skin Exam: Dry, Intact, Normal Color, Warm Assessment and Plan - Assessment and Plan (Free Text) Assessment: 62 F with a PMHx of pancost tumor of lung, [employer], hypothyroidism, stage 3 left breast ca s/p allergic reaction/hypotension after an elective venous port placement in preparation for neoadjuvant treatment for the newly discovered stage 3 breast cancer of the left breast. . Pt echo revealed EF of 35% down from a previous 56%. Dr. Naik, cardiology is following with plans of a MUGA scan and possible cardiac catheterization to account for the reduced EF so that proper chemotherapy can be administered. However, on account of patients nausea/ vomiting, this had to be postponed. Continue medical management as per ICU team. Duonebs PRN, Pulmicort BID, Solumedrol 40mg BID pulmonology Dr. Stubbs following.
[2017-12-20] MEDS: Potassium & Sodium Phosphate PO SCH ×2 (13:24→17:14)
[2017-12-20] MEDS ORDERED: Magnesium Sulfate 1 gm in D5W 1 GM/100 ML BAG IVPB ONE (13:25)
--- NOTE | 2017-12-20 15:38 | PN ---
DATE: 12/20/2017 SUBJECTIVE: The patient is seen lying in bed. She is complaining of severe dry heaves. She vomited earlier. She denies any abdominal pain. She denies any diarrhea. She denies any constipation. She denies any chest tightness. PHYSICAL EXAMINATION: GENERAL: Thinly built elderly lady lying in bed. VITAL SIGNS: Blood pressure 115/53, heart rate 79, respiratory rate 20, temperature 98.2. HEENT: Normocephalic, atraumatic, positive pallor. NECK: Supple, no JVD. LUNGS: Bilateral equal entry, bilateral equal expansion, no rales. CARDIAC: S1, S2. Regular rate and rhythm. No murmur, no rub. ABDOMEN: Soft, nondistended, nontender, bowel sounds present. EXTREMITIES: No lower extremity edema. INTAKE AND OUTPUT: 150/900. LABORATORY DATA: WBC 11, hemoglobin 11.1, hematocrit 32, platelets . Sodium 128, potassium 2.7, chloride 90, CO2 27, BUN 10, creatinine 0.4. Glucose 103, calcium 8.6, phosphorus 1.9, magnesium 1.5. Urinalysis: Yellow clear, pH 7, specific gravity 1.010, protein 30, ketones negative, leukocyte esterase negative. CURRENT MEDICATIONS: Aspirin, Brovana, DuoNeb, heparin, Lipitor, Megace, morphine, Neutra-Phos 1 packet t.i.d. and started this morning, Plavix 75, Protonix, Pulmicort, normal saline at 50, Solu-Medrol, Synthroid, , Zofran, 20 mEq of potassium given x2. ASSESSMENT AND PLAN: 1. Severe hypokalemia. 2. Hyponatremia. 3. Hypophosphatemia. 4. Hypomagnesemia. 5. Resolved hypotension. 6. Breast cancer. PLAN: 1. Add Neutra-Phos to IV fluids. 2. Magnesium sulfate rider x1. 3. Check urine sodium, check urine osmolality, check serum uric acid. Rita Daley MD
[2017-12-20] MEDS: Potassium Phosphate 20 MMOLE in Sodium Chloride 0.9% 1,000 ML IV SCH (15:43)
--- NOTE | 2017-12-20 15:43 | PN ---
DATE: 12/20/2017 REASON FOR CONSULTATION AND FOLLOWUP: Hypotension, status post rapid response; borderline troponin, rule out non-ST segment myocardial infarction, history of COPD, history of carcinoma of the breast, scheduled for a test today, found to be severe hypokalemic as well as retching, unable to lay flat. SUBJECTIVE: Patient ____ bucket in the basket. Sister is at the bedside. Patient feels very nauseous and unable to lay flat. OBJECTIVE: GENERAL: [id number] distress secondary to retching. Feeling very weak, potassium 2.7. VITAL SIGNS: Temperature afebrile, heart rate 81, blood pressure 105/53. HEENT: PERRLA. Extraocular muscles are intact. NECK: Supple. No carotid bruit or thyromegaly. CHEST: Clear to auscultation. HEART: S1 and S2 regular. ABDOMEN: Soft. EXTREMITIES: Clubbing and cyanosis, negative. LABORATORY DATA: Blood workup as follows: WBC 11, hemoglobin , hematocrit 31.7, platelet count 221. Chemistry showed sodium 120, potassium 2.7, chloride 90, carbon dioxide 27, anion gap of 14, BUN 10 and creatinine 0.4. Troponin 0.80. She is status post rapid response during Port-A-Cath placement, given epinephrine and heart rate went to borderline troponin possibly secondary to hemodynamic instability, but cannot rule out underlying coronary artery disease versus non-ST segment myocardial infarction. Patient is scheduled for cardiac cath today, but found to be severely hypokalemic as well as patient is unable to lay flat because of severe retching. So, we will hold cardiac catheterization today, supplement aggressively potassium, GI consult and possible cath tomorrow and supplement electrolytes aggressively as needed. History of carcinoma of the breast, history of pulmonary hypertension. Patient had echo on 12/18/2017, that showed ejection fraction 37%, RV systolic pressure of 59. Always, this borderline troponin is secondary to hemodynamic instability, remained hypotensive as well as severe tachycardic. We will follow with you. Lolis Holland MD [facility] # [id number]
[2017-12-20 19:23] LABS: BLOOD UREA NITROGEN 6 mg/dL (7-21); CALCIUM 9.1 mg/dL (8.4-10.5); GFR AFRICAN-AMERICAN > 60; GFR NON-AFRICAN AMERICAN > 60
[2017-12-20] MEDS ORDERED: Morphine 15 mg SR Tab PO SCH (20:00)
[2017-12-20] MEDS: Morphine 15 mg SR Tab PO SCH ×2 (20:00→23:55)
[2017-12-20] MEDS: DiphenhydrAMINE 50 mg/ml Inj IVP PRN (20:13)
[2017-12-20] MEDS: Morphine 15 mg Immediate Release Tab PO SCH (23:00)
[2017-12-21] MEDS: Albuterol-Ipratrop 3 mg / 0.5 (3 ml) UD IH SCH ×4 (05:33→20:20)
[2017-12-21] MEDS: Morphine 15 mg Immediate Release Tab PO SCH ×4 (06:30→22:27)
[2017-12-21] MEDS: Levothyroxine 25 MCG TAB PO SCH (06:30)
[2017-12-21] MEDS ORDERED: Verapamil 2 ML ONE (06:48)
[2017-12-21] MEDS ORDERED: EPINEPHrine 1 mg/ml (1:1000) Inj ONE (06:48)
[2017-12-21] MEDS ORDERED: Lidocaine 2% Inj (20ml) ONE (06:48)
[2017-12-21] MEDS ORDERED: Midazolam 2 MG/2 ML VIAL ONE ×2 (06:49→07:18)
[2017-12-21] MEDS ORDERED: Phenylephrine 10 mg/ml Inj ONE (06:49)
[2017-12-21] MEDS ORDERED: Iodixanol 320 MG/ML 200 ML BOTTLE IV ONE (06:50)
[2017-12-21] MEDS ORDERED: Nitroglycerin 50mg in D5W 0 MG/0 ML BOTTLE IV ONE (06:50)
[2017-12-21] MEDS ORDERED: Iohexol 350mgl/ml 50 ML ONE (06:50)
[2017-12-21] MEDS ORDERED: Iodixanol 320 MG/ML 100 ML BOTTLE IV ONE (06:50)
[2017-12-21 06:53] LABS: GRAN # 11.28 (1.4-6.5); GRAN % 71.2 % (50.0-68.0); HEMOGLOBIN 11.9 g/dL (12.0-16.0); LYMPH # 2.5 (1.2-3.4); LYMPH % 15.9 % (22.0-35.0); MEAN CELL VOLUME 88.5 fl (80.0-105.0); MEAN CORPUSCULAR HEMOGLOBIN 31.7 pg (25.0-35.0); MEAN CORPUSCULAR HGB CONC 35.8 g/dl (31.0-37.0); MEAN PLATELET VOLUME 9.4 fl (7.0-11.0); MONO % 12.9 % (1.0-6.0); RBC 3.75 10^6/uL (3.5-6.1); RED CELL DISTRIBUTION WIDTH 12.1 % (11.5-14.5); WHITE BLOOD COUNT 15.8 10^3/ul (4.5-11.0)
[2017-12-21] MEDS: Arformoterol 15 mcg/2 ml Inh Sol IH SCH ×2 (07:16→20:20)
[2017-12-21] MEDS: Budesonide 0.5 mg/2 ml Inhal Susp UD IH SCH ×2 (07:16→20:20)
[2017-12-21 07:19] LABS: ALB/GLOB RATIO 1.3 (1.1-1.8); ALBUMIN 3.5 g/dL (3.0-4.8); ALT/SGPT 30 U/L (7-56); AST/SGOT 32 U/L (14-36); BLOOD UREA NITROGEN 5 mg/dL (7-21); CALCIUM 8.8 mg/dL (8.4-10.5); GFR AFRICAN-AMERICAN > 60; GFR NON-AFRICAN AMERICAN > 60
[2017-12-21] MEDS ORDERED: Famotidine 20mg/50ml 20 MG/50 ML BAG IVPB ONE (07:52)
[2017-12-21] MEDS ORDERED: DiphenhydrAMINE 50 mg/ml Inj ONE (07:52)
--- NOTE | 2017-12-21 08:21 | RAD ---
HISTORY: follow up COMPARISON: Comparison chest 12/20/2017 FINDINGS: No change right IJ central line with tip in the SVC LUNGS: Lung araujo are hyperinflated consistent with underlying COPD or emphysema associate with coarsened/ increased interstitial markings. There may also be some mild bibasilar linear scarring changes. . Again noted are metallic clips right base of neck and right lung apex. Clinical correlation with surgical history. PLEURA: No significant pleural effusion identified, no pneumothorax apparent. CARDIOVASCULAR: Heart size is within range of normal. OSSEOUS STRUCTURES: No significant abnormalities. VISUALIZED UPPER ABDOMEN: Normal. OTHER FINDINGS: None. IMPRESSION: Lung araujo are hyperinflated consistent with underlying COPD or emphysema associate with coarsened/ increased interstitial markings. There may also be some mild bibasilar linear scarring changes. . Again noted are metallic clips right base of neck and right lung apex. Clinical correlation with surgical history.
[2017-12-21] MEDS ORDERED: Magnesium Sulfate 2 GM in Sodium Chloride 0.9% 100 ML IVPB ONE (08:27)
[2017-12-21] MEDS ORDERED: Potassium Chloride 20 mEq ER Tab PO ONE (08:29)
[2017-12-21] MEDS: Sucralfate 1 gm/10 ml Oral Susp UD PO SCH ×2 (09:28→17:25)
--- NOTE | 2017-12-21 09:37 | CPOSTOP ---
DATE: 12/21/2017 DICTATING PHYSICIAN: Lolis Holland MD [employer] OPERATOR: Maria Antonia radiological technician. TYPE OF ANESTHESIA USED: Moderate conscious sedation. Total dose given 2 mg of Versed, 100 of fentanyl. Periodically started 1 mg of Versed and 50 of fentanyl. PRE-PROCEDURE DIAGNOSES: Unstable angina and non ST segment myocardial infarction. PROCEDURE PERFORMED: Left heart catheterization. FINDINGS: Nonobstructive coronary artery disease, 50% LAD, 60% ostial diagonal disease, decreased LV function ejection fraction 40% to 45%. FINAL DIAGNOSIS: Nonobstructive coronary artery disease. POST PROCEDURE CONDITION: The patient's condition is stable. VASCULAR ACCESS SITE: Right femoral artery. CLOSING DEVICE APPLIED: None, manual pressure. TOTAL RADIATION: 1099.55 milligray unit. FLUORO TIME: 1.9 minutes. Lolis Holland MD
--- NOTE | 2017-12-21 09:58 | PN ---
DATE: 12/21/2017 PULMONARY NOTE SUBJECTIVE: The patient appears comfortable this morning. She is not short of breath at rest. OBJECTIVE: VITAL SIGNS: Temperature is 97.9, pulse on the monitor is 89, respiratory rate is 18/20, blood pressure 140/75. Oxygen saturation on nasal cannula is 96%. HEENT: Normocephalic, atraumatic. No JVD. CARDIOVASCULAR: Positive S1, S2. No S3 gallop. LUNGS: Decreased breath sounds at the bases. Minimal/less rhonchi. No wheezing. EXTREMITIES: No clubbing, cyanosis or edema. Calves are nontender to palpation. GASTROINTESTINAL: Abdomen is soft, nontender and nondistended. Bowel sounds are positive. SKIN: No acute rash. NEUROLOGIC: Exam limited at the present time. PERTINENT LABORATORY DATA: Chest x-ray was repeated this morning and reviewed. There is no significant change from the previous film done yesterday. Official results are pending. IMPRESSION: 1. Hypotension - resolved. 2. Acute myocardial infarction. 3. Pulmonary edema - resolved. 4. Advanced chronic obstructive pulmonary disease. 5. Advanced cardiomyopathy. PLAN: The patient appears comfortable this morning. She is not short of breath at rest. She does state to having less nausea this morning.. She does state to feeling much better overall. I did discuss the case with the night nurse at length. The night nurse stated that the patient had a very good night. I did review the chest x-ray from this morning. There is no significant change from yesterday's film. Official results are pending. On physical exam, there is certainly less bronchospasm noted. In addition, the alveolar-arterial gradient is also less. I will continue the current nebulizer treatments and decrease the intravenous steroids this morning. Inputs by Cardiology and Renal are noted. The patient is for possible cardiac catheterization. The clinical status of the patient is significantly improved - compared to the initial presentation. I will discuss the above with the entire ICU team in the next few moments. I will also discuss the above with the attending physician. Mitch Stubbs MD MTDD
[2017-12-21] MEDS: MethylPREDNISolone 40 mg Vial IVP SCH ×2 (09:59→22:25)
[2017-12-21] MEDS: Morphine 15 mg SR Tab PO SCH ×3 (10:01→22:40)
[2017-12-21] MEDS: Magnesium Oxide 400 mg Tab UD PO SCH ×2 (10:02→17:27)
[2017-12-21] MEDS: Megestrol Acetate 40 mg/ml Cup PO SCH (10:02)
[2017-12-21] MEDS: Potassium & Sodium Phosphate PO SCH ×2 (10:03→17:26)
--- NOTE | 2017-12-21 10:22 | CP.PCM.CON ---
History of Present Illness - History of Present Illness History of Present Illness: PGY-2 GI consult note 62 year old female with past medical history of breast cancer, lung cancer, hypothyroidism, pancoast tumor s/p resection and COPD inially presented s/p an allergic reaction after port site placement. Patient was found to be gasping for air and hypotensive after procedure. GI was consulted due to patient vomiting and retching. Per family at bedside patient is on high doses of morphine due to her breast ca and h/o pancoast tumor. Initially patientw as not on her home dose of pain medciation. This morning patient went for cardiac cath. Per nurse patient is no longer vomiting and is able to toleratwe procedure.Patient denies any discomfort, abd pain, nausea and vomiting. PMH: pancoast tumor of lung, [employer], hypothyroidism, stage 3 left breast ca s/p allergic reaction/hypotension after an elective venous port placement in preparation for neoadjuvant treatment for the newly discovered stage 3 breast cancer of the left breast. PSH: Sudeep-cath insertion, Lobectomy Allergies: NKDA Social History: Former smoker; Denies illicit drug and alcohol use Review of Systems - Review of Systems All systems: reviewed and no additional remarkable complaints except Past Patient History - Infectious Disease Hx of Infectious Diseases: None - Tetanus Immunizations Tetanus Immunization: Unknown - Past Social History Smoking Status: Former Smoker - CARDIAC Hx Pacemaker: No - PULMONARY Hx Chronic Obstructive Pulmonary Disease (COPD): Yes - NEUROLOGICAL Hx Paralysis: No - ENDOCRINE/METABOLIC Hx Hypothyroidism: Yes - HEMATOLOGICAL/ONCOLOGICAL Hx Cancer: Yes Other/Comment: left breast ca dx october 2017 - MUSCULOSKELETAL/RHEUMATOLOGICAL Hx Musculoskeletal Disorders: Yes Hx Falls: No - GENITOURINARY/GYNECOLOGICAL Other/Comment: ca L breast - PSYCHIATRIC Hx Substance Use: No - SURGICAL HISTORY Hx Surgeries: Yes Other/Comment: lung ca 17 yrs ago,i lobe removed - ANESTHESIA Hx Anesthesia Reactions: No Hx Malignant Hyperthermia: No Meds Allergies/Adverse Reactions: Allergies Allergy/AdvReac Type Severity Reaction Status Date / Time No Known Allergies Allergy Verified 08/22/13 02:18 - Medications Medications: Current Medications Albuterol/Ipratropium (Duoneb 3 Mg/0.5 Mg (3 Ml) Ud) 3 ml IH Q2H PRN PRN Reason: Shortness of Breath Albuterol/Ipratropium (Duoneb 3 Mg/0.5 Mg (3 Ml) Ud) 3 ml IH [id number] [facility] Last Admin: 12/21/17 07:16 Dose: Not Given Arformoterol Tartrate (Brovana) 15 mcg IH [id number] [facility] Last Admin: 12/21/17 07:16 Dose: Not Given Aspirin (Aspirin Chewable) 81 mg PO DAILY [facility] Last Admin: 12/21/17 10:02 Dose: 81 mg Atorvastatin Calcium (Lipitor) 20 mg PO DIN [facility] Last Admin: 12/20/17 16:00 Dose: 20 mg Budesonide (Pulmicort Respules) 1 mg IH [id number] [facility] Last Admin: 12/21/17 07:16 Dose: Not Given Diphenhydramine HCl (Benadryl) 25 mg IVP Q6H PRN PRN Reason: Nausea/Vomiting Last Admin: 12/20/17 20:13 Dose: 25 mg Heparin Sodium (Porcine) (Heparin) 5,000 units SC Q8 [facility] PRN Reason: Protocol Potassium Phosphate 20 mmole/ (Sodium Chloride) 1,006.6667 mls @ 50 mls/hr IV .Q20H8M [facility] Stop: 12/21/17 13:00 Last Admin: 12/20/17 15:43 Dose: 50 mls/hr Ketorolac Tromethamine (Toradol) 15 mg IVP Q6H PRN PRN Reason: Pain, moderate (4-7) Last Admin: 12/20/17 15:54 Dose: 15 mg Levothyroxine Sodium (Synthroid) 25 mcg PO 0600 [facility] Last Admin: 12/21/17 06:30 Dose: Not Given Lorazepam (Ativan) 0.25 mg IVP Q6H PRN; Protocol PRN Reason: Anxiety Last Admin: 12/20/17 20:13 Dose: 0.25 mg Magnesium Oxide (Mag-Ox) 400 mg PO BID [facility] Stop: 12/22/17 23:59 Last Admin: 12/21/17 10:02 Dose: 400 mg Megestrol Acetate (Megace) 400 mg PO DAILY [facility] Last Admin: 12/21/17 10:02 Dose: 400 mg Methylprednisolone (Solu-Medrol) 30 mg IVP Q12 [facility] Last Admin: 12/21/17 09:59 Dose: 30 mg Metoclopramide HCl (Reglan) 5 mg IVP ACHS [facility] Last Admin: 12/21/17 07:30 Dose: Not Given Morphine Sulfate (Morphine) 2 mg IVP Q4H PRN PRN Reason: Pain, severe (8-10) Last Admin: 12/20/17 20:18 Dose: 2 mg Morphine Sulfate (Morphine Extended Release Tab) 30 mg PO Q12 [facility] Last Admin: 12/21/17 10:01 Dose: 30 mg Morphine Sulfate (Morphine Immediate Release Tab) 30 mg PO Q8 [facility] Last Admin: 12/21/17 10:00 Dose: 30 mg Ondansetron HCl (Zofran Inj) 4 mg IVP Q8H PRN PRN Reason: Nausea/Vomiting Pantoprazole Sodium (Protonix Inj) 40 mg IVP Q12 [facility] Last Admin: 12/21/17 09:59 Dose: 40 mg Potassium Phos/Sodium Phos (Neutra-Phos) 1 pkt PO TID [facility] Stop: 12/21/17 23:00 Last Admin: 12/21/17 10:03 Dose: 1 pkt Sucralfate (Carafate Oral Susp) 1 gm PO 0600,1600 [facility] Last Admin: 12/21/17 09:28 Dose: Not Given Physical Exam - Constitutional Appears: Well, No Acute Distress - Head Exam Head Exam: ATRAUMATIC, NORMOCEPHALIC - Eye Exam Eye Exam: EOMI, Normal appearance - ENT Exam ENT Exam: Mucous Membranes Moist - Respiratory Exam Respiratory Exam: Clear to Auscultation Bilateral, NORMAL BREATHING PATTERN. absent: Rales, Rhonchi, Wheezes, Respiratory Distress - Cardiovascular Exam Cardiovascular Exam: REGULAR RHYTHM, +S1, +S2. absent: Bradycardia, Tachycardia , Systolic Murmur - GI/Abdominal Exam GI & Abdominal Exam: Normal Bowel Sounds, Soft. absent: Distended, Firm, Guarding - Extremities Exam Extremities exam: Positive for: normal inspection. Negative for: pedal edema, tenderness - Neurological Exam Neurological exam: Alert, Oriented x3 Additional comments: patient sleepy due to medication - Skin Skin Exam: Dry, Intact, Normal Color, Warm Results - Vital Signs Recent Vital Signs: Last Vital Signs Temp 98.9 F 12/21/17 08:40 Pulse 92 H 12/21/17 00:00 Resp 28 H 12/21/17 00:00 BP 140/75 12/21/17 00:00 Pulse Ox 90 L 12/21/17 00:00 - Labs Result Diagrams: 12/21/17 06:00 12/21/17 06:00 Labs: Laboratory Results - last 24 hr 12/20/17 12/20/17 12/21/17 06:40 19:00 02:00 WBC RBC Hgb Hct MCV MCH MCHC RDW Plt Count MPV Gran % Lymph % (Auto) [place] % (Auto) Eos % (Auto) Baso % (Auto) Gran # Lymph # (Auto) [place] # (Auto) Eos # (Auto) Baso # (Auto) Sodium 126 L Potassium 3.7 Chloride 88 L Carbon Dioxide 27 Anion Gap 15 BUN 6 L Creatinine 0.4 L Est GFR ( Amer) > 60 Est GFR (Non-Af Amer) > 60 Random Glucose 146 H Uric Acid 1.4 L Calcium 9.1 Phosphorus Magnesium Total Bilirubin AST ALT Alkaline Phosphatase Total Protein Albumin Globulin Albumin/Globulin Ratio Urine Osmolality 415 12/21/17 12/21/17 06:00 06:00 WBC 15.8 H D RBC 3.75 Hgb 11.9 L Hct 33.2 L MCV 88.5 MCH 31.7 MCHC 35.8 RDW 12.1 Plt Count 245 MPV 9.4 Gran % 71.2 H Lymph % (Auto) 15.9 L [place] % (Auto) 12.9 H Eos % (Auto) 0.0 L Baso % (Auto) 0.0 Gran # 11.28 H Lymph # (Auto) 2.5 [place] # (Auto) 2.0 H Eos # (Auto) 0.0 Baso # (Auto) 0.00 Sodium 130 L Potassium 3.7 Chloride 91 L Carbon Dioxide 29 Anion Gap 13 BUN 5 L Creatinine 0.4 L Est GFR ( Amer) > 60 Est GFR (Non-Af Amer) > 60 Random Glucose 100 Uric Acid Calcium 8.8 Phosphorus 4.0 Magnesium 1.4 L Total Bilirubin 0.8 AST 32 ALT 30 Alkaline Phosphatase 45 Total Protein 6.1 Albumin 3.5 Globulin 2.6 Albumin/Globulin Ratio 1.3 Urine Osmolality Assessment & Plan - Assessment and Plan (Free Text) Assessment: 62 year old female with breast cancer, lung cancer, hypothyroidism, pancoast tumor s/p resection and COPD presents with hypotension after undergoing anesthesia, GI was consulted for nausea and vomiting most likely due to pain medication withdrawal. Plan: Home pain medication restarted started protonix q12 started carafate started reglan achs continue zofran prn continue Regular diet continue to monitor Case discussed and reviewed with attending.
[2017-12-21] MEDS: Potassium Phosphate 20 MMOLE in Sodium Chloride 0.9% 1,000 ML IV SCH (11:11)
--- NOTE | 2017-12-21 12:37 | CP.PCM.PN ---
Subjective - Date & Time of Evaluation Date of Evaluation: 12/21/17 Time of Evaluation: 11:00 - Subjective Subjective: Heme Onc Progress Note Dr Rodriguez Patient was seen and examined at bedside. Pt tolerated cardiac cath this morning and her nausea has improved significantly. Pt slightly groggy after the procedure, denied fever chills, shortness of breath, chest pains, abdominal pains, nausea, vomiting, constipation, diarrhea, or dysuria. Objective - Vital Signs/Intake and Output Vital Signs (last 24 hours): Temp Pulse Resp BP Pulse Ox 98.9 F 89 20 130/73 92 L 12/21/17 08:40 12/21/17 11:37 12/21/17 10:45 12/21/17 10:45 12/21/17 10:45 Intake and Output: 12/21/17 12/21/17 06:59 18:59 Intake Total 550 Output Total 850 Balance -300 - Medications Medications: Current Medications Albuterol/Ipratropium (Duoneb 3 Mg/0.5 Mg (3 Ml) Ud) 3 ml IH Q2H PRN PRN Reason: Shortness of Breath Albuterol/Ipratropium (Duoneb 3 Mg/0.5 Mg (3 Ml) Ud) 3 ml IH [id number] [facility] Last Admin: 12/21/17 07:16 Dose: Not Given Arformoterol Tartrate (Brovana) 15 mcg IH [id number] [facility] Last Admin: 12/21/17 07:16 Dose: Not Given Aspirin (Aspirin Chewable) 81 mg PO DAILY [facility] Last Admin: 12/21/17 10:02 Dose: 81 mg Atorvastatin Calcium (Lipitor) 20 mg PO DIN [facility] Last Admin: 12/20/17 16:00 Dose: 20 mg Budesonide (Pulmicort Respules) 1 mg IH [id number] [facility] Last Admin: 12/21/17 07:16 Dose: Not Given Diphenhydramine HCl (Benadryl) 25 mg IVP Q6H PRN PRN Reason: Nausea/Vomiting Last Admin: 12/20/17 20:13 Dose: 25 mg Heparin Sodium (Porcine) (Heparin) 5,000 units SC Q8 [facility] PRN Reason: Protocol Potassium Phosphate 20 mmole/ (Sodium Chloride) 1,006.6667 mls @ 50 mls/hr IV .Q20H8M [facility] Stop: 12/21/17 13:00 Last Admin: 12/21/17 11:11 Dose: 50 mls/hr Ketorolac Tromethamine (Toradol) 15 mg IVP Q6H PRN PRN Reason: Pain, moderate (4-7) Last Admin: 12/20/17 15:54 Dose: 15 mg Levothyroxine Sodium (Synthroid) 25 mcg PO 0600 [facility] Last Admin: 12/21/17 06:30 Dose: Not Given Lorazepam (Ativan) 0.25 mg IVP Q6H PRN; Protocol PRN Reason: Anxiety Last Admin: 12/20/17 20:13 Dose: 0.25 mg Magnesium Oxide (Mag-Ox) 400 mg PO BID [facility] Stop: 12/22/17 23:59 Last Admin: 12/21/17 10:02 Dose: 400 mg Megestrol Acetate (Megace) 400 mg PO DAILY [facility] Last Admin: 12/21/17 10:02 Dose: 400 mg Methylprednisolone (Solu-Medrol) 30 mg IVP Q12 [facility] Last Admin: 12/21/17 09:59 Dose: 30 mg Metoclopramide HCl (Reglan) 5 mg IVP ACHS [facility] Last Admin: 12/21/17 07:30 Dose: Not Given Morphine Sulfate (Morphine) 2 mg IVP Q4H PRN PRN Reason: Pain, severe (8-10) Last Admin: 12/20/17 20:18 Dose: 2 mg Morphine Sulfate (Morphine Extended Release Tab) 30 mg PO Q12 [facility] Last Admin: 12/21/17 10:01 Dose: 30 mg Morphine Sulfate (Morphine Immediate Release Tab) 30 mg PO Q8 [facility] Last Admin: 12/21/17 10:00 Dose: 30 mg Ondansetron HCl (Zofran Inj) 4 mg IVP Q8H PRN PRN Reason: Nausea/Vomiting Pantoprazole Sodium (Protonix Inj) 40 mg IVP Q12 [facility] Last Admin: 12/21/17 09:59 Dose: 40 mg Potassium Phos/Sodium Phos (Neutra-Phos) 1 pkt PO TID [facility] Stop: 12/21/17 23:00 Last Admin: 12/21/17 10:03 Dose: 1 pkt Sucralfate (Carafate Oral Susp) 1 gm PO 0600,1600 [facility] Last Admin: 12/21/17 09:28 Dose: Not Given - Labs Labs: 12/21/17 06:00 12/21/17 06:00 PT 12.3 SECONDS (9.4-12.5) 12/17/17 21:35 INR 1.08 (0.93-1.08) 12/17/17 21:35 APTT 30.9 Seconds (25.1-36.5) 12/18/17 22:25 - Constitutional Appears: No Acute Distress - Head Exam Head Exam: ATRAUMATIC, NORMAL INSPECTION, NORMOCEPHALIC - Eye Exam Eye Exam: EOMI, Normal appearance, PERRL Pupil Exam: NORMAL ACCOMODATION, PERRL - ENT Exam ENT Exam: Mucous Membranes Moist, Normal Exam - Respiratory Exam Respiratory Exam: Decreased Breath Sounds, NORMAL BREATHING PATTERN - Cardiovascular Exam Cardiovascular Exam: REGULAR RHYTHM, +S1, +S2. absent: Murmur - GI/Abdominal Exam GI & Abdominal Exam: Soft, Normal Bowel Sounds. absent: Tenderness - Neurological Exam Neurological Exam: Alert, Awake, CN II-XII Intact, Oriented x3 - Psychiatric Exam Psychiatric exam: Normal Affect, Normal Mood - Skin Skin Exam: Dry, Intact, Normal Color, Warm Assessment and Plan - Assessment and Plan (Free Text) Assessment: 62 F with a PMHx of pancost tumor of lung, [employer], hypothyroidism, stage 3 left breast ca Her-2/heidi positive s/p allergic reaction/hypotension after an elective venous port placement in preparation for neoadjuvant treatment for the newly discovered stage 3 breast cancer of the left breast. . Pt echo revealed EF of 35% down from a previous 56%. Dr. Naik, cardiology is following with plans of a MUGA scan and possible cardiac catheterization to account for the reduced EF so that proper chemotherapy can be administered. Cardiac cath revelaed mild coronary disease no stenting necessary with an Ef of 40-45%. cleared for future mastectomy. Continue medical management as per ICU team. Duonebs PRN, Pulmicort BID, Solumedrol 40mg BID pulmonology Dr. Stubbs following.
--- NOTE | 2017-12-21 14:51 | PN ---
DATE: 12/21/2017 SUBJECTIVE: The patient is currently seen post cardiac catheterization. She has nonobstructive coronary artery disease. She is currently seen in ICU bed 6, but she has been transferred to telemetry. She remains on normal saline with K-Phos supplements. MEDICATIONS: Medication list reviewed. The patient is currently on aspirin, Ativan, Benadryl, Brovana, Carafate, DuoNeb, heparin subcu, Lipitor, mag oxide, Megace, morphine, Neutra-Phos, K-Phos 20 millimoles and normal saline at 50 ml an hour, Protonix, Pulmicort, Reglan, Solu-Medrol, Synthroid, Toradol and Zofran p.r.n. OBJECTIVE: INTAKE/OUTPUT: Intake is 550, output is 850. VITAL SIGNS: Blood pressure is 130/73, temperature is 98.9. Respiratory rate is 20 with a pulse of 91. Pulse ox is 92%. HEENT: Shows her to be normocephalic, atraumatic. Conjunctivae are pink. Sclerae are nonicteric. NECK: Supple. No neck vein distention. CHEST: Clear to auscultation and percussion. No rales, rhonchi or wheezing. She has port in her right chest wall. CARDIOVASCULAR: Shows a regular rate and rhythm without audible murmurs, rubs or gallops. ABDOMEN: Soft. Bowel sounds normal. EXTREMITIES: Show no cyanosis, clubbing or edema. Distal lower extremity pulses are intact to 2+ bilaterally. NEURO: Shows no focal deficits. LABORATORY DATA AND IMAGING: CBC: White blood cell count 15.8, perhaps steroid effect. Hemoglobin is 11.9 with a platelet count of 245,000. Coags: PTT is back to 30.9 off heparin. Chemistries: Sodium is 130 today, up from 126 on normal saline. Potassium is 3.7, stable. Chloride is 91. BUN remains normal at 5 with a creatinine of 0.4. This is her baseline. Glucose is 100. Calcium is 8.8. Phosphorus is up to 4 with supplements. Magnesium level remains low at 1.4. No further troponin levels have been obtained. Liver enzymes are normal. Albumin is 3.5. Urine osmolality was 415. Of note, her serum uric acid was 1.4, perhaps suggestive of a diagnosis of SIADH. Microbiology: Blood cultures are negative at 3 days. ASSESSMENTS: 1. Status post hypotension secondary to a reaction from receiving Versed and fentanyl on the same-day surgery at the time of placement of her right chest wall port. This has resolved. 2. Mild hypomagnesemia, hypophosphatemia and hyponatremia. The patient is receiving isotonic IV fluid hydration with K-Phos. She is also status post mild hypokalemia. She does remain mildly hypomagnesemic and I will give her a magnesium rider today. 3. History of breast cancer, recently diagnosed. The patient is scheduled for mastectomy and chemotherapy. She is status post placement of a right chest wall port. 4. Remote history of lung cancer, right lung, status post lobectomy. 5. History of cigarette smoking in the past with chronic obstructive pulmonary disease. 6. History of anemia, stable. 7. History of hypothyroidism, stable on thyroid replacement therapy. PLAN: 1. Discuss with the patient and family members. We will continue isotonic IV fluid hydration along with K-Phos. 2. The patient will receive a magnesium rider today in light of her hypomagnesemia. This will help maintain her potassium within normal range. 3. Await urine sodium. If urine sodium is elevated, this would be consistent with the potential diagnosis of syndrome of inappropriate antidiuretic hormone, perhaps secondary to her underlying cancer. 4. Should sodium level drop on hypotonic IV fluid hydration, perhaps short course of tolvaptan. 5. Continue to monitor accurate inputs and outputs. 6. Agree with transfer to telemetry. 7. Continue to monitor intake, output and labs on a daily basis. 8. The patient was told to voluntarily restrict her p.o. fluid intake. Freeman Gregory MD
[2017-12-21] MEDS: DiphenhydrAMINE 50 mg/ml Inj IVP PRN (20:13)
--- NOTE | 2017-12-21 21:58 | CARD ---
APPROVED REPORT Procedure(s) performed: Left Heart Catheterization HISTORY The patient is a 62 year-old female with a history of : most recent EF: 36.8%. (EF Method: Echocardiogram), chronic lung disease, tobacco history() : The patient is a current smoker , admitted with prolong hypotension, tachycaria and positive troponin possible NSTEMI after esteban cath placement.Hx of ca breast S/p Chemo and requiring Mastectomy and more chemotherapy.. INDICATION The indication(s) include : non-STEMI . CASE TECHNIQUE The was infiltrated with 2% Lidocaine subcutaneous anesthesia. A 6 Fr Coronary angiography was performed using coronary diagnostic catheters. Vessel Analysis The patient's coronary anatomy is right dominant. The left main coronary artery is a large size vessel without significant stenosis. The left main bifurcates to the left anterior descending and circumflex. The left anterior descending artery is a medium size vessel with diffuse calcification noted throughout this vessel and without significant stenosis. There is a 30-40% stenosis in the mid segment. The first diagonal branch is a small size vessel . There is a 60% stenosis in the ostial segment. The circumflex artery is a medium size vessel with diffuse calcification noted throughout this vessel and without significant stenosis. The first obtuse marginal branch is a small size vessel very tortous vessel. There is a 60-70% stenosis in the proximal segment. The second obtuse marginal branch is a medium size vessel without significant stenosis. The right coronary artery is a large size vessel with diffuse calcification noted throughout this vessel and with significant stenosis. There is a 30-40% stenosis in the mid segment. The right posterior descending artery is a medium size vessel with intimal irregularities and without significant stenosis. The right posterolateral branch is a medium size vessel without significant stenosis. Left Ventricle The left ventricle is mildly enlarged in size with mildly decreased contractility. Non-Ischemic cardiomyopathy. The left ventricular ejection fraction is estimated to be 40-45%. The left ventricular end diastolic pressure is 14-16 mmHg. There was no gradient across the aortic valve upon pullback. Conclusion Non Obstructive CAD ,limited to small Vessel D1 ostial 60% and OM1 60-70%, small calibre vessels Non Ischemic [id number]%, EDP_14-16 mmof Hg. Recommendations Aggressive Medical TherapyCardiac Risk Reduction Program MUGA scan to Assess LV Fx before next round of Chemotherapy. BOB,Coreg,Gentle diuretics, spironolactoe as BP and renal Fx are tolerated. CC; Dr. Guzman /Tiarra/ Gumaro
--- NOTE | 2017-12-21 22:13 | CARD ---
APPROVED REPORT INDICATION persistent hypotension,SOB,COPD ,EVALUATE LV EF. PROCEDURE The above named patient recieved 28.6 millicuries of Tc99m tagged red blood cells intravenously. After achieving equilibrium, gated imaging of 16/frame/cycle was performed utillizing Gamma camera interfaced with a digital computer and gated device. Gated imaging was then performed in the left anterior oblique, anterior, and the left lateral projections. Findings Left Ventricle: The quality of the study is good. The left ventricle is within normal limits in size. The right ventricle is normal in size. Wall motion study shows good contractility of the left ventricle. RV wall motion is normal. The right atrium is dynamic.. The left atrium is prominent. The remainder of the study is unremarkable. Impressions Normal gated wall motion of left ventricle wall. LVEF = 73%. Normal RV wall motion.
[2017-12-22] MEDS: Albuterol-Ipratrop 3 mg / 0.5 (3 ml) UD IH SCH ×2 (03:15→07:20)
[2017-12-22 05:44] LABS: GRAN # 17.88 (1.4-6.5); GRAN % 89.5 % (50.0-68.0); HEMOGLOBIN 11.4 g/dL (12.0-16.0); LYMPH # 1.2 (1.2-3.4); LYMPH % 6.2 % (22.0-35.0); MEAN CELL VOLUME 90.8 fl (80.0-105.0); MEAN CORPUSCULAR HEMOGLOBIN 31.7 pg (25.0-35.0); MEAN CORPUSCULAR HGB CONC 34.9 g/dl (31.0-37.0); MEAN PLATELET VOLUME 9.5 fl (7.0-11.0); MONO # 0.9 (0.1-0.6); MONO % 4.3 % (1.0-6.0); RBC 3.6 10^6/uL (3.5-6.1); RED CELL DISTRIBUTION WIDTH 12.3 % (11.5-14.5)
[2017-12-22 06:48] LABS: ALB/GLOB RATIO 1.2 (1.1-1.8); ALBUMIN 3.1 g/dL (3.0-4.8); ALT/SGPT 26 U/L (7-56); AST/SGOT 40 U/L (14-36); BLOOD UREA NITROGEN 8 mg/dL (7-21); CALCIUM 8.3 mg/dL (8.4-10.5); GFR AFRICAN-AMERICAN > 60; GFR NON-AFRICAN AMERICAN > 60
[2017-12-22] MEDS: Sucralfate 1 gm/10 ml Oral Susp UD PO SCH ×2 (07:03→17:59)
[2017-12-22] MEDS: Morphine 15 mg Immediate Release Tab PO SCH ×3 (07:03→22:00)
[2017-12-22] MEDS: Levothyroxine 25 MCG TAB PO SCH (07:05)
[2017-12-22] MEDS: Budesonide 0.5 mg/2 ml Inhal Susp UD IH SCH ×2 (07:20→20:00)
[2017-12-22] MEDS: Arformoterol 15 mcg/2 ml Inh Sol IH SCH ×2 (07:20→20:00)
[2017-12-22] MEDS: Potassium & Sodium Phosphate PO SCH (07:25)
[2017-12-22] MEDS ORDERED: Metoprolol 1 mg/ml Inj IVP STA (08:24)
--- NOTE | 2017-12-22 08:58 | PN ---
DATE: 12/22/2017 PULMONARY NOTE SUBJECTIVE: The patient appears very comfortable this morning. She is not short of breath at rest. PHYSICAL EXAMINATION: VITAL SIGNS: Temperature is 98.8, pulse is 78 on the monitor, respiratory rate 18, blood pressure 98/52. Oxygen saturation on nasal cannula is 93%. HEENT: Normocephalic, atraumatic. No JVD. CARDIOVASCULAR: Positive S1 and S2. No S3 gallop. LUNGS: Improved breath sounds at the bases. Minimal/less rhonchi. No wheezing. EXTREMITIES: No clubbing, cyanosis or edema. Calves are nontender to palpation. GI: Abdomen is soft, nontender and nondistended. Bowel sounds are positive. SKIN: No acute rash. NEUROLOGIC: Limited at the present time. IMPRESSION: 1. Hypotension - resolved. 2. Acute myocardial infarction. Multivessel coronary artery disease. 3. Pulmonary edema - resolved. 4. Advanced chronic obstructive pulmonary disease. 5. Cardiomyopathy. PLAN: The patient appears very comfortable this morning. She is not short of breath at rest. She does state to feeling much, much better overall. I did discuss the case with the night nurse at length. The night nurse stated that the patient had a very good night. On physical exam, the patient's bronchospasm continues to slowly resolve. In addition, the alveolar-arterial gradient is also less. I will continue with the current nebulizer treatments and intravenous steroids (decreased yesterday) for now. I would continue with the treatment for acute myocardial infarction and coronary artery disease as per Cardiology. Input by Dr. Holland is noted. Catheterization note is also noted. The clinical status of the patient is significantly improved overall. However, her future status/prognosis does remain guarded - as she continues to have advanced lung disease. I will discuss the above with the entire ICU team in the next few moments. I will also discuss the above with the attending physician. Mitch Stubbs MD MTDBertin
[2017-12-22] MEDS: DiphenhydrAMINE 50 mg/ml Inj IVP PRN (08:59)
[2017-12-22] MEDS: Morphine 15 mg SR Tab PO SCH ×2 (09:00→22:12)
[2017-12-22] MEDS: MethylPREDNISolone 40 mg Vial IVP SCH ×2 (09:00→21:55)
[2017-12-22] MEDS: Magnesium Oxide 400 mg Tab UD PO SCH ×2 (09:02→18:03)
[2017-12-22] MEDS: Megestrol Acetate 40 mg/ml Cup PO SCH (09:02)
[2017-12-22] MEDS ORDERED: Digoxin 500 mcg/2ml (0.5 mg/2ml) Inj IVP ONE ×2 (09:40→14:00)
--- NOTE | 2017-12-22 11:14 | CP.PCM.PN ---
<Claire Paz - Last Filed: 12/22/17 15:12> Subjective - Date & Time of Evaluation Date of Evaluation: 12/22/17 Time of Evaluation: 09:00 - Subjective Subjective: PGY-2 GI progress note Patient was seen and examined at bedside in the ICU. No acute distress. Patient states that she is feeling better. She denies abd pain. She states that shehas occasional nausea but is improves with medications. Patient states that she is tolerating her diet. patient denies diarrhea or constipation. Patient states that mack has had previous episodes of n/v with withdrawal from her morphine pain medication. She denies vomiting, fever, chills, abd pain. Nurse reports eprisode of tachycardia this am. Objective - Vital Signs/Intake and Output Vital Signs (last 24 hours): Temp Pulse Resp BP Pulse Ox 98.4 F 162 H 19 98/52 L 90 L 12/22/17 08:06 12/22/17 09:04 12/22/17 05:06 12/22/17 05:06 12/22/17 05:06 Intake and Output: 12/22/17 12/22/17 06:59 18:59 Intake Total 720 Output Total 1025 Balance -305 - Medications Medications: Current Medications Albuterol/Ipratropium (Duoneb 3 Mg/0.5 Mg (3 Ml) Ud) 3 ml IH Q2H PRN PRN Reason: Shortness of Breath Arformoterol Tartrate (Brovana) 15 mcg IH [id number] [facility] Last Admin: 12/22/17 07:20 Dose: 15 mcg Aspirin (Aspirin Chewable) 81 mg PO DAILY [facility] Last Admin: 12/22/17 09:02 Dose: 81 mg Atorvastatin Calcium (Lipitor) 20 mg PO DIN [facility] Last Admin: 12/21/17 17:25 Dose: 20 mg Budesonide (Pulmicort Respules) 1 mg IH [id number] [facility] Last Admin: 12/22/17 07:20 Dose: 1 mg Carvedilol (Coreg) 3.125 mg PO BID [facility] Last Admin: 12/22/17 09:01 Dose: 3.125 mg Digoxin (Lanoxin) 0.25 mg PO 1400 [facility] Diphenhydramine HCl (Benadryl) 25 mg IVP Q6H PRN PRN Reason: Nausea/Vomiting Last Admin: 12/22/17 08:59 Dose: 25 mg Heparin Sodium (Porcine) (Heparin) 5,000 units SC Q8 [facility] PRN Reason: Protocol Last Admin: 12/22/17 09:05 Dose: 5,000 units Ketorolac Tromethamine (Toradol) 15 mg IVP Q6H PRN PRN Reason: Pain, moderate (4-7) Last Admin: 12/22/17 09:03 Dose: 15 mg Levothyroxine Sodium (Synthroid) 25 mcg PO 0600 [facility] Last Admin: 12/22/17 07:05 Dose: 25 mcg Lisinopril (Zestril) 2.5 mg PO DAILY [facility] Last Admin: 12/22/17 09:04 Dose: 2.5 mg Lorazepam (Ativan) 0.25 mg IVP Q6H PRN; Protocol PRN Reason: Anxiety Last Admin: 12/22/17 08:58 Dose: 0.25 mg Magnesium Oxide (Mag-Ox) 400 mg PO BID [facility] Stop: 12/22/17 23:59 Last Admin: 12/22/17 09:02 Dose: 400 mg Megestrol Acetate (Megace) 400 mg PO DAILY [facility] Last Admin: 12/22/17 09:02 Dose: 400 mg Methylprednisolone (Solu-Medrol) 30 mg IVP Q12 [facility] Last Admin: 12/22/17 09:00 Dose: 30 mg Metoclopramide HCl (Reglan) 5 mg IVP ACHS [facility] Last Admin: 12/22/17 11:05 Dose: 5 mg Morphine Sulfate (Morphine) 2 mg IVP Q4H PRN PRN Reason: Pain, severe (8-10) Last Admin: 12/20/17 20:18 Dose: 2 mg Morphine Sulfate (Morphine Extended Release Tab) 30 mg PO Q12 [facility] Last Admin: 12/22/17 09:00 Dose: 30 mg Morphine Sulfate (Morphine Immediate Release Tab) 30 mg PO Q8 [facility] Last Admin: 12/22/17 07:03 Dose: 30 mg Ondansetron HCl (Zofran Inj) 4 mg IVP Q8H PRN PRN Reason: Nausea/Vomiting Pantoprazole Sodium (Protonix Inj) 40 mg IVP Q12 [facility] Last Admin: 12/22/17 09:03 Dose: 40 mg Sucralfate (Carafate Oral Susp) 1 gm PO 0600,1600 [facility] Last Admin: 12/22/17 07:03 Dose: 1 gm Verapamil HCl (Verapamil Inj) 2.5 mg IVP Q6H PRN PRN Reason: for heart rate >130 - Labs Labs: 12/22/17 05:30 12/22/17 05:30 PT 12.3 SECONDS (9.4-12.5) 12/17/17 21:35 INR 1.08 (0.93-1.08) 12/17/17 21:35 APTT 30.9 Seconds (25.1-36.5) 12/18/17 22:25 - Constitutional Appears: Well, No Acute Distress - Head Exam Head Exam: ATRAUMATIC, NORMOCEPHALIC - Eye Exam Eye Exam: EOMI, Normal appearance - ENT Exam ENT Exam: Mucous Membranes Moist - Respiratory Exam Respiratory Exam: Clear to Ausculation Bilateral, NORMAL BREATHING PATTERN. absent: Decreased Breath Sounds, Rales, Rhonchi, Wheezes, Respiratory Distress - Cardiovascular Exam Cardiovascular Exam: REGULAR RHYTHM. absent: Bradycardia, Tachycardia, Murmur - GI/Abdominal Exam GI & Abdominal Exam: Soft, Normal Bowel Sounds. absent: Distended, Tenderness - Extremities Exam Extremities Exam: Normal Inspection. absent: Pedal Edema - Neurological Exam Neurological Exam: Alert, Awake, Oriented x3 - Skin Skin Exam: Dry, Intact, Normal Color, Warm Assessment and Plan - Assessment and Plan (Free Text) Assessment: 62 year old female with breast cancer, lung cancer, hypothyroidism, pancoast tumor s/p resection and COPD presents with hypotension after undergoing anesthesia, GI was consulted for nausea and vomiting most likely due to pain medication withdrawal. Plan: Home pain medication restarted stop reglan, will continue to monitor for n/v continue protonix q12, carafate continue zofran prn continue Regular diet continue to monitor Case discussed and reviewed with attending. <Michelle,Kovil V - Last Filed: 12/22/17 23:34> Objective - Vital Signs/Intake and Output Vital Signs (last 24 hours): Temp Pulse Resp BP Pulse Ox 98.0 F 82 19 95/60 L 96 12/22/17 18:00 12/22/17 18:00 12/22/17 18:00 12/22/17 18:00 12/22/17 18:00 - Medications Medications: Current Medications Albuterol/Ipratropium (Duoneb 3 Mg/0.5 Mg (3 Ml) Ud) 3 ml IH Q2H PRN PRN Reason: Shortness of Breath Arformoterol Tartrate (Brovana) 15 mcg IH [id number] [facility] Last Admin: 12/22/17 20:00 Dose: 15 mcg Aspirin (Aspirin Chewable) 81 mg PO DAILY [facility] Last Admin: 12/22/17 09:02 Dose: 81 mg Atorvastatin Calcium (Lipitor) 20 mg PO DIN [facility] Last Admin: 12/22/17 18:03 Dose: 20 mg Budesonide (Pulmicort Respules) 1 mg IH [id number] [facility] Last Admin: 12/22/17 20:00 Dose: 1 mg Carvedilol (Coreg) 3.125 mg PO BID [facility] Last Admin: 12/22/17 18:00 Dose: Not Given Digoxin (Lanoxin) 0.25 mg PO 1400 [facility] Last Admin: 12/22/17 18:01 Dose: 0.25 mg Diphenhydramine HCl (Benadryl) 25 mg IVP Q6H PRN PRN Reason: Nausea/Vomiting Last Admin: 12/22/17 08:59 Dose: 25 mg Heparin Sodium (Porcine) (Heparin) 5,000 units SC Q8 [facility] PRN Reason: Protocol Last Admin: 12/22/17 21:54 Dose: 5,000 units Ketorolac Tromethamine (Toradol) 15 mg IVP Q6H PRN PRN Reason: Pain, moderate (4-7) Last Admin: 12/22/17 20:06 Dose: 15 mg Levothyroxine Sodium (Synthroid) 25 mcg PO 0600 [facility] Last Admin: 12/22/17 07:05 Dose: 25 mcg Lisinopril (Zestril) 2.5 mg PO DAILY [facility] Last Admin: 12/22/17 09:04 Dose: 2.5 mg Lorazepam (Ativan) 0.25 mg IVP Q6H PRN; Protocol PRN Reason: Anxiety Last Admin: 12/22/17 08:58 Dose: 0.25 mg Magnesium Oxide (Mag-Ox) 400 mg PO BID [facility] Stop: 12/22/17 23:59 Last Admin: 12/22/17 18:03 Dose: 400 mg Megestrol Acetate (Megace) 400 mg PO DAILY [facility] Last Admin: 12/22/17 09:02 Dose: 400 mg Methylprednisolone (Solu-Medrol) 30 mg IVP Q12 [facility] Last Admin: 12/22/17 21:55 Dose: 30 mg Morphine Sulfate (Morphine) 2 mg IVP Q4H PRN PRN Reason: Pain, severe (8-10) Last Admin: 12/20/17 20:18 Dose: 2 mg Morphine Sulfate (Morphine Extended Release Tab) 30 mg PO Q12 [facility] Last Admin: 12/22/17 22:12 Dose: 30 mg Morphine Sulfate (Morphine Immediate Release Tab) 30 mg PO Q8 [facility] Last Admin: 12/22/17 15:43 Dose: Not Given Ondansetron HCl (Zofran Inj) 4 mg IVP Q8H PRN PRN Reason: Nausea/Vomiting Last Admin: 12/22/17 20:13 Dose: 4 mg Pantoprazole Sodium (Protonix Inj) 40 mg IVP Q12 [facility] Last Admin: 12/22/17 21:55 Dose: 40 mg Sucralfate (Carafate Oral Susp) 1 gm PO 0600,1600 [facility] Last Admin: 12/22/17 17:59 Dose: 1 gm Verapamil HCl (Verapamil Inj) 2.5 mg IVP Q6H PRN PRN Reason: for heart rate >130 - Labs Labs: 12/22/17 05:30 12/22/17 05:30 PT 12.3 SECONDS (9.4-12.5) 12/17/17 21:35 INR 1.08 (0.93-1.08) 12/17/17 21:35 APTT 30.9 Seconds (25.1-36.5) 12/18/17 22:25 Attending/Attestation - Attestation I have personally seen and examined this patient.: Yes I have fully participated in the care of the patient.: Yes I have reviewed all pertinent clinical information, including history, physical exam and plan: Yes Notes (Text): This is an addendum to GI progress report dictated by the Wireless Sales Expert.The patient was seen and examined earlier. Medical records, lab studies, imagings were reviewed. Last 24 hours events reviewed. Agreed with the above treatment plan as outlined in Wireless Sales Expert 's notes the with the addition of the following 12/22/17 23:33
--- NOTE | 2017-12-22 12:53 | CP.PCM.PN ---
Subjective - Date & Time of Evaluation Date of Evaluation: 12/22/17 Time of Evaluation: 07:00 - Subjective Subjective: Heme Onc Progress Note Dr Rodriguez Patient was seen and examined at bedside. Pt is comfortable with minimal pain noted. Pt admitted to mild intermittent nausea however medications have been helping. As per nursing staff, pt was tachycardic this morning, however improved with administering meds. Pt tolerating oral intake. Pt denied fever chills, shortness of breath, chest pains, abdominal pains, nausea, vomiting, constipation, diarrhea, or dysuria. Objective - Vital Signs/Intake and Output Vital Signs (last 24 hours): Temp Pulse Resp BP Pulse Ox 98.4 F 162 H 19 98/52 L 90 L 12/22/17 08:06 12/22/17 09:04 12/22/17 05:06 12/22/17 05:06 12/22/17 05:06 Intake and Output: 12/22/17 12/22/17 06:59 18:59 Intake Total 720 Output Total 1025 Balance -305 - Medications Medications: Current Medications Albuterol/Ipratropium (Duoneb 3 Mg/0.5 Mg (3 Ml) Ud) 3 ml IH Q2H PRN PRN Reason: Shortness of Breath Arformoterol Tartrate (Brovana) 15 mcg IH [id number] [facility] Last Admin: 12/22/17 07:20 Dose: 15 mcg Aspirin (Aspirin Chewable) 81 mg PO DAILY [facility] Last Admin: 12/22/17 09:02 Dose: 81 mg Atorvastatin Calcium (Lipitor) 20 mg PO DIN [facility] Last Admin: 12/21/17 17:25 Dose: 20 mg Budesonide (Pulmicort Respules) 1 mg IH [id number] [facility] Last Admin: 12/22/17 07:20 Dose: 1 mg Carvedilol (Coreg) 3.125 mg PO BID [facility] Last Admin: 12/22/17 09:01 Dose: 3.125 mg Digoxin (Lanoxin) 0.25 mg PO 1400 [facility] Diphenhydramine HCl (Benadryl) 25 mg IVP Q6H PRN PRN Reason: Nausea/Vomiting Last Admin: 12/22/17 08:59 Dose: 25 mg Heparin Sodium (Porcine) (Heparin) 5,000 units SC Q8 [facility] PRN Reason: Protocol Last Admin: 12/22/17 09:05 Dose: 5,000 units Ketorolac Tromethamine (Toradol) 15 mg IVP Q6H PRN PRN Reason: Pain, moderate (4-7) Last Admin: 12/22/17 09:03 Dose: 15 mg Levothyroxine Sodium (Synthroid) 25 mcg PO 0600 [facility] Last Admin: 12/22/17 07:05 Dose: 25 mcg Lisinopril (Zestril) 2.5 mg PO DAILY [facility] Last Admin: 12/22/17 09:04 Dose: 2.5 mg Lorazepam (Ativan) 0.25 mg IVP Q6H PRN; Protocol PRN Reason: Anxiety Last Admin: 12/22/17 08:58 Dose: 0.25 mg Magnesium Oxide (Mag-Ox) 400 mg PO BID [facility] Stop: 12/22/17 23:59 Last Admin: 12/22/17 09:02 Dose: 400 mg Megestrol Acetate (Megace) 400 mg PO DAILY [facility] Last Admin: 12/22/17 09:02 Dose: 400 mg Methylprednisolone (Solu-Medrol) 30 mg IVP Q12 [facility] Last Admin: 12/22/17 09:00 Dose: 30 mg Metoclopramide HCl (Reglan) 5 mg IVP ACHS [facility] Last Admin: 12/22/17 11:05 Dose: 5 mg Morphine Sulfate (Morphine) 2 mg IVP Q4H PRN PRN Reason: Pain, severe (8-10) Last Admin: 12/20/17 20:18 Dose: 2 mg Morphine Sulfate (Morphine Extended Release Tab) 30 mg PO Q12 [facility] Last Admin: 12/22/17 09:00 Dose: 30 mg Morphine Sulfate (Morphine Immediate Release Tab) 30 mg PO Q8 [facility] Last Admin: 12/22/17 07:03 Dose: 30 mg Ondansetron HCl (Zofran Inj) 4 mg IVP Q8H PRN PRN Reason: Nausea/Vomiting Pantoprazole Sodium (Protonix Inj) 40 mg IVP Q12 [facility] Last Admin: 12/22/17 09:03 Dose: 40 mg Sucralfate (Carafate Oral Susp) 1 gm PO 0600,1600 [facility] Last Admin: 12/22/17 07:03 Dose: 1 gm Verapamil HCl (Verapamil Inj) 2.5 mg IVP Q6H PRN PRN Reason: for heart rate >130 - Labs Labs: 12/22/17 05:30 12/22/17 05:30 PT 12.3 SECONDS (9.4-12.5) 12/17/17 21:35 INR 1.08 (0.93-1.08) 12/17/17 21:35 APTT 30.9 Seconds (25.1-36.5) 12/18/17 22:25 - Constitutional Appears: No Acute Distress - Head Exam Head Exam: ATRAUMATIC, NORMAL INSPECTION, NORMOCEPHALIC - Eye Exam Eye Exam: EOMI, Normal appearance, PERRL Pupil Exam: NORMAL ACCOMODATION, PERRL - ENT Exam ENT Exam: Mucous Membranes Moist, Normal Exam - Respiratory Exam Respiratory Exam: Clear to Ausculation Bilateral, NORMAL BREATHING PATTERN - Cardiovascular Exam Cardiovascular Exam: REGULAR RHYTHM, +S1, +S2. absent: Murmur - GI/Abdominal Exam GI & Abdominal Exam: Soft, Normal Bowel Sounds. absent: Tenderness Assessment and Plan - Assessment and Plan (Free Text) Assessment: 62 F with a PMHx of pancost tumor of lung, REIMBURSEMENT REP, hypothyroidism, stage 3 left breast ca Her-2/heidi positive s/p allergic reaction/hypotension after an elective venous port placement in preparation for neoadjuvant treatment for the newly discovered stage 3 breast cancer of the left breast. Pt echo revealed EF of 35% down from a previous 56%. Cardiac cath revealed mild coronary disease no stenting necessary with an Ef of 40-45%. cleared for future mastectomy. Continue medical management as per ICU team. Duonebs PRN, Pulmicort BID, Solumedrol 40mg BID pulmonology Dr. Stubbs following. Nephrology Dr Gregory following, recommend IVF with isotonic fluids with repletion of Mg and K PHos. Possible SIADH 2/2 underlying malignancy. Consider tolvaptan.
--- NOTE | 2017-12-22 13:14 | PN ---
DATE: 12/22/2017 REASON FOR CONSULTATION AND FOLLOWUP: Hypotension, hemodynamic instability, borderline positive troponin rule out non-ST segment myocardial infarction status post cardiac cath, nonobstructive coronary artery disease, history of breast CA, COPD, possible mastectomy and further chemo. SUBJECTIVE: The patient denies any chest pain, shortness of breath or any palpitation. Sister is at the bedside. OBJECTIVE: GENERAL: Not in apparent distress, lying flat on the bed. No hematoma at the groin noted. Distal pulse 1+. Rest of examination as follows: VITAL SIGNS: Temperature afebrile, heart rate 82, blood pressure 98/52. HEENT: PERRLA, intact. NECK: Supple. No carotid bruit or thyromegaly. CHEST: Clear to auscultation. HEART: S1 and S2 regular. ABDOMEN: Soft. EXTREMITIES: Clubbing and cyanosis negative. LABORATORY DATA: Blood workup as follows: WBC 20, hemoglobin 11.4, hematocrit 32.7, platelet count 226. Chemistry shows sodium , potassium 4, chloride 96, carbon dioxide 40, anion gap of 14, BUN 8, creatinine 0.4. IMPRESSION: Status post Port-A-Cath procedure. The patient became hypotensive for 5 hours, hemodynamic instability, positive troponin, non-ST segment myocardial infarction status post cardiac catheterization that revealed nonobstructive coronary artery disease, limited only to mid left anterior descending artery 50%, ostial diagonal 60%, ejection fraction 40% to 45%, obtuse marginal branch is also 50% to 60% by cardiac catheterization, ejection fraction 45%. The patient had a MUGA scan done yesterday that showed ejection fraction of 73%, history of advanced chronic obstructive pulmonary disease, history of breast cancer status post chemo and going for mastectomy and followed by the chemo. Discussed with Dr. Rodriguez, the patient is cleared from the Cardiology point of view to go for mastectomy and we will follow closely. Electrolytes yesterday, the patient has multiple electrolyte imbalance including hyponatremia, hypokalemia, hypophosphatemia and hypomagnesemia which apparently looks much improved from before. We will put low dose of Coreg as blood pressure is tolerated and we will put Verapamil 2.5 p.r.n. for supraventricular tachycardia. The patient goes in supraventricular tachycardia. We will follow. It seem the patient's blood pressure is low. If the blood pressure improves, we will put low dose of Coreg 3.125 b.i.d. and lisinopril 1.25 once the blood pressure improved. Thank you Dr. Rodriguez for providing us the opportunity in taking care of the patient, Ansley Morton. Lolis Holland MD
[2017-12-22] MEDS: Digoxin 250 mcg (0.25 mg) Tab PO SCH ×2 (14:22→18:01)
--- NOTE | 2017-12-22 15:16 | CARD ---
APPROVED REPORT EKG Measurement Heart [id number] <Conclusion> Atrial fibrillation with rapid ventricular response STTW changes c/w ischemia Prolonged QTc
--- NOTE | 2017-12-22 16:43 | PN ---
DATE: 12/22/2017 SUBJECTIVE: The patient is seen lying in bed. She is awake, she is alert. She reports that her dry heaves have almost gone. She denies any diarrhea. She denies any nausea or vomiting. PHYSICAL EXAMINATION: GENERAL: Elderly lady, thinly built, lying in bed. VITAL SIGNS: Blood pressure 98/52; heart rate 165 earlier in the day, currently 89; respiratory rate 19, temperature 98.4. HEENT: Normocephalic, atraumatic, positive pallor. NECK: Supple, no JVD. LUNGS: Bilateral equal air entry, bilaterally equal expansion. CARDIAC: S1 and S2, regular rate and rhythm, no murmur, no rub. ABDOMEN: Soft, nondistended, nontender, bowel sounds present. EXTREMITIES: No lower extremity edema. INTAKE AND OUTPUT: 720/2205 LABORATORY DATA: WBC 20, hemoglobin 11, hematocrit 32.7, and platelets 226. Sodium 136, potassium 4.1, chloride 96, CO2 of 30. BUN 8, creatinine 0.4. Glucose 125. Calcium 8.3, phosphorus 3.2 magnesium 1.8, albumin 3.1. Urine sodium 85, urine osmolality 415. CURRENT MEDICATIONS: Aspirin, Ativan, Benadryl, Brovana, Carafate, Coreg, heparin, digoxin, Lipitor, mag oxide, Megace, morphine, Protonix, Solu-Medrol, Synthroid, ketorolac, verapamil, lisinopril 2.5 daily, and Zofran. ASSESSMENT: 1. Resolved hypokalemia. 2. Resolved hyponatremia, workup is consistent with syndrome of inappropriate antidiuretic hormone, unclear how the patient diuresed 2 L. 3. Persistent hypotension. 4. Breast cancer. 5. Remote history of lung cancer. 6. Anemia. 7. Leukocytosis, tachycardia, questionable sepsis. PLAN: 1. At this time, electrolytes are all normal. 2. No indication for tolvaptan. 3. Stock-culture? 4. Empiric antibiotics? Rita Daley MD
[2017-12-23] MEDS: Sucralfate 1 gm/10 ml Oral Susp UD PO SCH ×2 (05:31→17:08)
[2017-12-23] MEDS: Morphine 15 mg Immediate Release Tab PO SCH ×3 (05:31→21:00)
[2017-12-23] MEDS: Levothyroxine 25 MCG TAB PO SCH (05:32)
[2017-12-23] MEDS: DiphenhydrAMINE 50 mg/ml Inj IVP PRN (05:50)
--- NOTE | 2017-12-23 08:26 | CP.PCM.PN ---
Subjective - Date & Time of Evaluation Date of Evaluation: 12/23/17 Time of Evaluation: 06:25 - Subjective Subjective: Feels okay, denies chest pain,denies shortness of breath, daughter claimed that mom always feels nauseas, no vomiting Reason for consult and follow up: Cardiac evaluation, hypotension,non ST segment myocardial infarction, post cardiac catheterization, non-obstructive coronary artery disease, history of breast cancer, COPD, possible mastectomy and further chemotherapy. Seen and examined by me and Dr. Naik Objective - Vital Signs/Intake and Output Vital Signs (last 24 hours): Temp Pulse Resp BP Pulse Ox 98.1 F 84 20 135/75 96 12/23/17 07:44 12/23/17 07:44 12/23/17 07:44 12/23/17 07:44 12/23/17 07:44 Intake and Output: 12/23/17 12/23/17 06:59 18:59 Intake Total 120 Balance 120 - Medications Medications: Current Medications Albuterol/Ipratropium (Duoneb 3 Mg/0.5 Mg (3 Ml) Ud) 3 ml IH Q2H PRN PRN Reason: Shortness of Breath Albuterol/Ipratropium (Duoneb 3 Mg/0.5 Mg (3 Ml) Ud) 3 ml IH [id number] [facility] Arformoterol Tartrate (Brovana) 15 mcg IH [id number] [facility] Last Admin: 12/22/17 20:00 Dose: 15 mcg Aspirin (Aspirin Chewable) 81 mg PO DAILY [facility] Last Admin: 12/22/17 09:02 Dose: 81 mg Atorvastatin Calcium (Lipitor) 20 mg PO DIN [facility] Last Admin: 12/22/17 18:03 Dose: 20 mg Budesonide (Pulmicort Respules) 1 mg IH [id number] [facility] Last Admin: 12/22/17 20:00 Dose: 1 mg Carvedilol (Coreg) 3.125 mg PO BID [facility] Last Admin: 12/22/17 18:00 Dose: Not Given Digoxin (Lanoxin) 0.25 mg PO 1400 [facility] Last Admin: 12/22/17 18:01 Dose: 0.25 mg Diphenhydramine HCl (Benadryl) 25 mg IVP Q6H PRN PRN Reason: Nausea/Vomiting Last Admin: 12/23/17 05:50 Dose: 25 mg Heparin Sodium (Porcine) (Heparin) 5,000 units SC Q8 [facility] PRN Reason: Protocol Last Admin: 12/23/17 05:31 Dose: 5,000 units Ketorolac Tromethamine (Toradol) 15 mg IVP Q6H PRN PRN Reason: Pain, moderate (4-7) Last Admin: 12/22/17 20:06 Dose: 15 mg Levothyroxine Sodium (Synthroid) 25 mcg PO 0600 [facility] Last Admin: 12/23/17 05:32 Dose: 25 mcg Lisinopril (Zestril) 2.5 mg PO DAILY [facility] Last Admin: 12/22/17 09:04 Dose: 2.5 mg Lorazepam (Ativan) 0.25 mg IVP Q6H PRN; Protocol PRN Reason: Anxiety Last Admin: 12/23/17 05:51 Dose: 0.25 mg Megestrol Acetate (Megace) 400 mg PO DAILY [facility] Last Admin: 12/22/17 09:02 Dose: 400 mg Methylprednisolone (Solu-Medrol) 30 mg IVP Q12 [facility] Last Admin: 12/22/17 21:55 Dose: 30 mg Morphine Sulfate (Morphine) 2 mg IVP Q4H PRN PRN Reason: Pain, severe (8-10) Last Admin: 12/20/17 20:18 Dose: 2 mg Morphine Sulfate (Morphine Extended Release Tab) 30 mg PO Q12 [facility] Last Admin: 12/22/17 22:12 Dose: 30 mg Morphine Sulfate (Morphine Immediate Release Tab) 30 mg PO Q8 [facility] Last Admin: 12/23/17 05:31 Dose: 30 mg Ondansetron HCl (Zofran Inj) 4 mg IVP Q8H PRN PRN Reason: Nausea/Vomiting Last Admin: 12/23/17 06:10 Dose: 4 mg Pantoprazole Sodium (Protonix Inj) 40 mg IVP Q12 [facility] Last Admin: 12/22/17 21:55 Dose: 40 mg Sucralfate (Carafate Oral Susp) 1 gm PO 0600,1600 [facility] Last Admin: 12/23/17 05:31 Dose: 1 gm Verapamil HCl (Verapamil Inj) 2.5 mg IVP Q6H PRN PRN Reason: for heart rate >130 - Labs Labs: 12/22/17 05:30 05/09/18 05:30 PT 12.3 SECONDS (9.4-12.5) 12/17/17 21:35 INR 1.08 (0.93-1.08) 12/17/17 21:35 APTT 30.9 Seconds (25.1-36.5) 12/18/17 22:25 - Constitutional Appears: No Acute Distress - Eye Exam Eye Exam: Normal appearance - ENT Exam ENT Exam: Mucous Membranes Moist - Cardiovascular Exam Cardiovascular Exam: +S1, +S2 Additional comments: right subclavian sudeep cath - GI/Abdominal Exam GI & Abdominal Exam: Soft, Normal Bowel Sounds Additional comments: nausea but no vomiting - Exam Additional comments: continent, goes to the bathroom - Extremities Exam Extremities Exam: Normal Capillary Refill - Neurological Exam Neurological Exam: Alert, Awake, Oriented x3 - Psychiatric Exam Psychiatric exam: Normal Affect, Normal Mood - Skin Skin Exam: Dry, Normal Color, Warm Assessment and Plan - Assessment and Plan (Free Text) Assessment: A 62 year old female who came in to [facility] for insertion of sudeep cath. she has history of stage 3 carcinoma of the left breast. Sudeep cath being inserted for chemotherapy. During the procedure patient had episode of hypotension, unclear at that time ,allergic reaction versus myocardial ischemia.She was transferred to ICU. Positive topronin, cardiac cath done with non obstructive coronary artery disease, LAD 50%, Ostial D1 60%, LVEF 40-45%. Muga scan was done LVEF 73% . history of lung cancer with resection and chemotherapy and radiation, neuropathy, hypothyroidism, current smoker, Plan: NSTEMI, non obstructive coronary artery disease Stable, no further hypotension SBP 140's Heart rate- 70-80's NSR On ASA 81 mg daily, Coreg 3.125 mg daily,Digoxin 0.25 mg daily, Lisinopril 2.5 mg daily,Synthroid 25 mcg daily, PRN Verapamil for HR above 130' s Continue current treatment Continue current medications Clear for mastectomy with moderate risk Will closely follow up Plan and treatment discussed with Dr. Naik
--- NOTE | 2017-12-23 08:30 | PN ---
DATE: 12/23/2017 PULMONARY NOTE SUBJECTIVE: The patient appears very comfortable this morning. She is not short of breath at rest. PHYSICAL EXAMINATION: VITAL SIGNS: Temperature is 98.2, pulse 88, respirations 18, blood pressure 141/75. Oxygen saturation on nasal cannula is 96%. HEENT: Normocephalic, atraumatic. NECK: No JVD. CARDIOVASCULAR: Positive S1, S2. No S3 gallop. LUNGS: Minimal/less loose rhonchi. No wheezing. EXTREMITIES: No clubbing, cyanosis or edema. Calves are nontender to palpation. GI: Abdomen is soft, nontender and nondistended. Bowel sounds are positive. SKIN: No acute rash. NEUROLOGIC: Exam limited at the present time. IMPRESSION: 1. Hypotension-resolved. 2. Acute myocardial infarction. Multivessel coronary artery disease. 3. Pulmonary edema-resolved. 4. Advanced chronic obstructive pulmonary disease. 5. Cardiomyopathy. PLAN: The patient appears comfortable this morning. She is not short of breath at rest. She does state to feeling much better overall. I did discuss the case with the night nurse at length. The night nurse stated that the patient had a good night. On physical exam, the patient's bronchospasm continues to slowly resolve. In addition, the alveolar-arterial gradient also continues to resolve. Oxygen saturation on nasal cannula is now 96%. I will continue with the current nebulizer treatments and current low dose intravenous steroids for now. Inputs by Cardiology, Renal, and Oncology are noted. The clinical status of the patient is significantly improved-compared to the initial presentation. However, unfortunately, her future status/prognosis does remain guarded. I will discuss the above with the attending physician. Mitch Stubbs MD MTDBertin
[2017-12-23] MEDS: Arformoterol 15 mcg/2 ml Inh Sol IH SCH ×2 (08:40→19:32)
[2017-12-23] MEDS: Albuterol-Ipratrop 3 mg / 0.5 (3 ml) UD IH SCH ×2 (08:40→14:01)
[2017-12-23] MEDS: Budesonide 0.5 mg/2 ml Inhal Susp UD IH SCH ×2 (08:40→19:33)
[2017-12-23] MEDS: Morphine 15 mg SR Tab PO SCH ×2 (09:16→21:01)
[2017-12-23] MEDS: Megestrol Acetate 40 mg/ml Cup PO SCH (09:16)
[2017-12-23] MEDS: MethylPREDNISolone 40 mg Vial IVP SCH ×2 (09:19→21:01)
--- NOTE | 2017-12-23 11:15 | CP.PCM.PN ---
Subjective - Date & Time of Evaluation Date of Evaluation: 12/23/17 Time of Evaluation: 09:00 - Subjective Subjective: PGY-2 GI progress note Patient was seen and examined at bedside. Transferred out of the ICU yesterday. No acute distress. Patient states that she is feeling better. She denies abd pain. She states that she had a few episode of nausea but is improving. Patient states that she is tolerating her diet. patient denies diarrhea or constipation. Objective - Vital Signs/Intake and Output Vital Signs (last 24 hours): Temp Pulse Resp BP Pulse Ox 98.1 F 84 20 135/75 96 12/23/17 07:44 12/23/17 09:20 12/23/17 07:44 12/23/17 09:20 12/23/17 07:44 Intake and Output: 12/23/17 12/23/17 06:59 18:59 Intake Total 120 Balance 120 - Medications Medications: Current Medications Albuterol/Ipratropium (Duoneb 3 Mg/0.5 Mg (3 Ml) Ud) 3 ml IH Q2H PRN PRN Reason: Shortness of Breath Albuterol/Ipratropium (Duoneb 3 Mg/0.5 Mg (3 Ml) Ud) 3 ml IH [id number] [facility] Last Admin: 12/23/17 08:40 Dose: 3 ml Arformoterol Tartrate (Brovana) 15 mcg IH [id number] [facility] Last Admin: 12/23/17 08:40 Dose: 15 mcg Aspirin (Aspirin Chewable) 81 mg PO DAILY [facility] Last Admin: 12/23/17 09:15 Dose: 81 mg Atorvastatin Calcium (Lipitor) 20 mg PO DIN [facility] Last Admin: 12/22/17 18:03 Dose: 20 mg Budesonide (Pulmicort Respules) 1 mg IH [id number] [facility] Last Admin: 12/23/17 08:40 Dose: 1 mg Carvedilol (Coreg) 3.125 mg PO BID [facility] Last Admin: 12/23/17 09:15 Dose: 3.125 mg Digoxin (Lanoxin) 0.25 mg PO 1400 [facility] Last Admin: 12/22/17 18:01 Dose: 0.25 mg Diphenhydramine HCl (Benadryl) 25 mg IVP Q6H PRN PRN Reason: Nausea/Vomiting Last Admin: 12/23/17 05:50 Dose: 25 mg Heparin Sodium (Porcine) (Heparin) 5,000 units SC Q8 [facility] PRN Reason: Protocol Last Admin: 12/23/17 05:31 Dose: 5,000 units Ketorolac Tromethamine (Toradol) 15 mg IVP Q6H PRN PRN Reason: Pain, moderate (4-7) Last Admin: 12/22/17 20:06 Dose: 15 mg Levothyroxine Sodium (Synthroid) 25 mcg PO 0600 [facility] Last Admin: 12/23/17 05:32 Dose: 25 mcg Lisinopril (Zestril) 2.5 mg PO DAILY [facility] Last Admin: 12/23/17 09:20 Dose: 2.5 mg Lorazepam (Ativan) 0.25 mg IVP Q6H PRN; Protocol PRN Reason: Anxiety Last Admin: 12/23/17 05:51 Dose: 0.25 mg Megestrol Acetate (Megace) 400 mg PO DAILY [facility] Last Admin: 12/23/17 09:16 Dose: 400 mg Methylprednisolone (Solu-Medrol) 30 mg IVP Q12 [facility] Last Admin: 12/23/17 09:19 Dose: 30 mg Morphine Sulfate (Morphine) 2 mg IVP Q4H PRN PRN Reason: Pain, severe (8-10) Last Admin: 12/20/17 20:18 Dose: 2 mg Morphine Sulfate (Morphine Extended Release Tab) 30 mg PO Q12 [facility] Last Admin: 12/23/17 09:16 Dose: 30 mg Morphine Sulfate (Morphine Immediate Release Tab) 30 mg PO Q8 [facility] Last Admin: 12/23/17 05:31 Dose: 30 mg Ondansetron HCl (Zofran Inj) 4 mg IVP Q8H PRN PRN Reason: Nausea/Vomiting Last Admin: 12/23/17 06:10 Dose: 4 mg Pantoprazole Sodium (Protonix Inj) 40 mg IVP Q12 [facility] Last Admin: 12/23/17 09:19 Dose: 40 mg Sucralfate (Carafate Oral Susp) 1 gm PO 0600,1600 [facility] Last Admin: 12/23/17 05:31 Dose: 1 gm Verapamil HCl (Verapamil Inj) 2.5 mg IVP Q6H PRN PRN Reason: for heart rate >130 - Labs Labs: 12/22/17 05:30 12/22/17 05:30 PT 12.3 SECONDS (9.4-12.5) 12/17/17 21:35 INR 1.08 (0.93-1.08) 12/17/17 21:35 APTT 30.9 Seconds (25.1-36.5) 12/18/17 22:25 - Constitutional Appears: Well, No Acute Distress - Head Exam Head Exam: ATRAUMATIC, NORMAL INSPECTION, NORMOCEPHALIC - Eye Exam Eye Exam: EOMI, Normal appearance - ENT Exam ENT Exam: Mucous Membranes Moist - Respiratory Exam Respiratory Exam: Clear to Ausculation Bilateral, NORMAL BREATHING PATTERN. absent: Rhonchi, Wheezes, Respiratory Distress - Cardiovascular Exam Cardiovascular Exam: REGULAR RHYTHM, +S1, +S2. absent: Bradycardia, Tachycardia , Murmur - GI/Abdominal Exam GI & Abdominal Exam: Soft, Normal Bowel Sounds. absent: Distended, Firm, Tenderness - Extremities Exam Extremities Exam: Normal Inspection. absent: Pedal Edema, Tenderness - Neurological Exam Neurological Exam: Alert, Awake, Oriented x3 - Psychiatric Exam Psychiatric exam: Normal Affect, Normal Mood - Skin Skin Exam: Dry, Intact, Normal Color, Warm Assessment and Plan - Assessment and Plan (Free Text) Assessment: 62 year old female with breast cancer, lung cancer, hypothyroidism, pancoast tumor s/p resection and COPD presents with hypotension after undergoing anesthesia, GI was consulted for nausea and vomiting most likely due to pain medication withdrawal. Plan: Home pain medication restarted will continue to monitor for n/v continue protonix q12, carafate continue zofran prn continue Regular diet continue to monitor Case discussed and reviewed with attending.
[2017-12-23] MEDS: Digoxin 250 mcg (0.25 mg) Tab PO SCH (13:35)
[2017-12-23] MEDS ORDERED: Sodium Chloride 0.9% 500 ML IV STA (18:05)
[2017-12-23] MEDS ORDERED: Digoxin 500 mcg/2ml (0.5 mg/2ml) Inj IVP STA (19:33)
[2017-12-23 22:14] VITALS: O2SAT 98
--- NOTE | 2017-12-23 23:33 | PN ---
DATE: 12/23/2017 This is [facility]'s hospital visit on the medical floor. SUBJECTIVE: Patient is a 62-year-old female, seen lying awake in bed, admitted for hypotensive episode after her port was placed. The patient is known to suffer from cancer of the lung, Pancoast tumor, status post lobectomy years ago, now with breast cancer. At present, she was to be scheduled for discharge home tomorrow; however, the patient developed rapid atrial fibrillation and is newly diagnosed with a non-ST elevation PR. At present, she is to be transferred to telemetry after rapid AFib was noted with patient otherwise asymptomatic. She is at present resting comfortably, with her family at the bedside. PHYSICAL EXAMINATION: VITAL SIGNS: Temperature 98.7, pulse 137, blood pressure 97/49, pulse oximetry 96%, respirations 18. HEENT: Unremarkable. Tongue is moist and midline. She has stopped smoking for approximately 1 month's time as her tongue was usually coated. NECK: Supple. HEART: Irregularly irregular. LUNGS: Rare rhonchi. ABDOMEN: Soft, scaphoid, nontender. EXTREMITIES: No edema. SKIN: Warm and dry. LABORATORY DATA: Patient's labs were done yesterday to include white blood cell count of 20,000, hemoglobin 11.4, hematocrit 32.7, platelet count of 266,000, with a chem metabolic panel showing a normal potassium after potassium of 2.7 was corrected from 12/20/2017, with an AST of 40; otherwise, normal chem panel. Patient's EKG is pending; however, it appears to be rapid atrial fibrillation at this time. ASSESSMENT: Rapid atrial fibrillation possibly causing her hypotensive episodes, breast cancer, lung cancer history, hypothyroidism, chronic obstructive pulmonary disease, smoker. PLAN: The plan for this patient, after conversation with Dr. Rodriguez, is to continue present medical regimen. She is to be transferred to the telemetry floor as per Dr. Naik. We will monitor clinically and with labs, with the prognosis for this patient guarded. Digoxin has been started by Dr. Naik. This is a complex patient with a comprehensive medically necessary and appropriate visit carried out in excess of 35 minutes [id number] time with the patient and her family. Questions were answered to their satisfaction. David MD [facility] # [id number]
[2017-12-24] MEDS ORDERED: Digoxin 500 mcg/2ml (0.5 mg/2ml) Inj IVP ONE
[2017-12-24] MEDS: Morphine 4 mg/ml ISec IVP PRN (00:56)
[2017-12-24] MEDS: Levothyroxine 25 MCG TAB PO SCH (06:10)
[2017-12-24] MEDS: Sucralfate 1 gm/10 ml Oral Susp UD PO SCH (06:10)
[2017-12-24] MEDS: Pantoprazole 40 mg EC Tab PO SCH ×2 (06:10→17:14)
[2017-12-24] MEDS: Morphine 15 mg Immediate Release Tab PO SCH ×2 (06:10→14:17)
[2017-12-24 06:24] LABS: HEMOGLOBIN 10.2 g/dL (12.0-16.0); MEAN CELL VOLUME 91.2 fl (80.0-105.0); MEAN CORPUSCULAR HGB CONC 35.1 g/dl (31.0-37.0); MEAN PLATELET VOLUME 9.4 fl (7.0-11.0); RBC 3.19 10^6/uL (3.5-6.1); RED CELL DISTRIBUTION WIDTH 12.3 % (11.5-14.5); WHITE BLOOD COUNT 10.7 10^3/ul (4.5-11.0)
[2017-12-24 06:53] LABS: TROPONIN I 0.06 ng/mL
[2017-12-24 07:27] LABS: ALB/GLOB RATIO 1.1 (1.1-1.8); ALBUMIN 2.6 g/dL (3.0-4.8); ALT/SGPT 19 U/L (7-56); AST/SGOT 19 U/L (14-36); BLOOD UREA NITROGEN 11 mg/dL (7-21); CALCIUM 8.2 mg/dL (8.4-10.5); GFR AFRICAN-AMERICAN > 60; GFR NON-AFRICAN AMERICAN > 60
[2017-12-24] MEDS: Budesonide 0.5 mg/2 ml Inhal Susp UD IH SCH (08:03)
[2017-12-24] MEDS: Arformoterol 15 mcg/2 ml Inh Sol IH SCH (08:03)
[2017-12-24] MEDS: Levalbuterol 1.25 MG/3 ML Inhal Soln UD IH SCH ×2 (08:03→13:59)
--- NOTE | 2017-12-24 08:08 | PN ---
DATE: 12/24/2017 PULMONARY NOTE SUBJECTIVE: The patient appears comfortable this morning. She is not short of breath at rest. PHYSICAL EXAMINATION: VITAL SIGNS: Temperature is 97.7, pulse 70, respirations 18, blood pressure 97/49 (Last recorded). Oxygen saturation on nasal cannula is 98%. HEENT: Normocephalic, atraumatic. NECK: No JVD. CARDIOVASCULAR: Positive S1, S2. No S3 gallop. LUNGS: Much less rhonchi. No wheezing. EXTREMITIES: No clubbing, cyanosis or edema. Calves are nontender to palpation. GI: Abdomen is soft, nontender, nondistended. Bowel sounds are positive. SKIN: No acute rash. NEUROLOGIC: Exam limited at the present time. IMPRESSION: 1. Hypotension-resolved. 2. Acute myocardial infarction. Multivessel coronary artery disease. 3. Pulmonary edema-resolved. 4. Advanced chronic obstructive pulmonary disease. 5. Cardiomyopathy. 6. Status post rapid atrial fibrillation. PLAN: The patient appears comfortable this morning. She is not short of breath at rest. She does state to feeling much better overall. I did discuss the case with the night nurse at length. Apparently, the patient did have a run of rapid atrial fibrillation late yesterday. She was given medication and is now in normal sinus rhythm. Cardiology input is noted. On physical exam, the patient's bronchospasm continues to resolve. In addition, the alveolar-arterial gradient also continues to resolve. Oxygen saturation on nasal cannula is now 98%. I will change the nebulizer treatments to Xopenex (given the atrial fibrillation), and decrease the intravenous steroids this morning. I would continue with the Cardiology evaluation and treatment. Inputs are noted. The clinical status of the patient is significantly improved overall. I will discuss the above with the attending physician. Mitch Stubbs MD MTDD
--- NOTE | 2017-12-24 09:22 | CP.PCM.PN ---
Subjective - Date & Time of Evaluation Date of Evaluation: 12/24/17 Time of Evaluation: 07:00 - Subjective Subjective: Heme Onc Progress Note Dr Rodriguez Patient was seen and examined at bedside. No acute complaints at this time. Patient noted intermittent nausea, however has not expereinced any further episodes of emesis. She is tolerating oral intake. No acute or adverse events overnight as per nursing staff. Patient denied fever, chills, shortness of breath, chest pains, abdominal pains, vomiting, diarrhea, constipation or dysuria. Objective - Vital Signs/Intake and Output Vital Signs (last 24 hours): Temp Pulse Resp BP Pulse Ox 97.7 F 70 18 97/49 L 98 12/23/17 20:00 12/24/17 06:00 12/23/17 20:00 12/23/17 20:07 12/23/17 20:00 Intake and Output: 12/24/17 12/24/17 06:59 18:59 Intake Total 360 Output Total 300 Balance 60 - Medications Medications: Current Medications Albuterol/Ipratropium (Duoneb 3 Mg/0.5 Mg (3 Ml) Ud) 3 ml IH Q2H PRN PRN Reason: Shortness of Breath Arformoterol Tartrate (Brovana) 15 mcg IH [id number] [facility] Last Admin: 12/24/17 08:03 Dose: 15 mcg Aspirin (Aspirin Chewable) 81 mg PO DAILY [facility] Last Admin: 12/23/17 09:15 Dose: 81 mg Atorvastatin Calcium (Lipitor) 20 mg PO DIN [facility] Last Admin: 12/23/17 17:08 Dose: 20 mg Budesonide (Pulmicort Respules) 1 mg IH [id number] [facility] Last Admin: 12/24/17 08:03 Dose: 1 mg Carvedilol (Coreg) 3.125 mg PO BID [facility] Last Admin: 12/23/17 17:08 Dose: Not Given Digoxin (Lanoxin) 0.25 mg PO 1400 [facility] Last Admin: 12/23/17 13:35 Dose: 0.25 mg Diphenhydramine HCl (Benadryl) 25 mg IVP Q6H PRN PRN Reason: Nausea/Vomiting Last Admin: 12/23/17 05:50 Dose: 25 mg Heparin Sodium (Porcine) (Heparin) 5,000 units SC Q8 GENI PRN Reason: Protocol Last Admin: 12/24/17 06:11 Dose: 5,000 units Levalbuterol HCl (Xopenex) 1.25 mg IH [id number] [facility] Last Admin: 12/24/17 08:03 Dose: 1.25 mg Levothyroxine Sodium (Synthroid) 25 mcg PO 0600 [facility] Last Admin: 12/24/17 06:10 Dose: 25 mcg Lisinopril (Zestril) 2.5 mg PO DAILY [facility] Last Admin: 12/23/17 09:20 Dose: 2.5 mg Lorazepam (Ativan) 0.25 mg IVP Q6H PRN; Protocol PRN Reason: Anxiety Last Admin: 12/23/17 05:51 Dose: 0.25 mg Megestrol Acetate (Megace) 400 mg PO DAILY [facility] Last Admin: 12/23/17 09:16 Dose: 400 mg Methylprednisolone (Solu-Medrol) 20 mg IVP Q12 [facility] Morphine Sulfate (Morphine) 2 mg IVP Q4H PRN PRN Reason: Pain, severe (8-10) Last Admin: 12/24/17 00:56 Dose: 2 mg Morphine Sulfate (Morphine Extended Release Tab) 30 mg PO Q12 [facility] Last Admin: 12/23/17 21:01 Dose: 30 mg Morphine Sulfate (Morphine Immediate Release Tab) 30 mg PO Q8 [facility] Last Admin: 12/24/17 06:10 Dose: 30 mg Ondansetron HCl (Zofran Inj) 4 mg IVP Q8H PRN PRN Reason: Nausea/Vomiting Last Admin: 12/23/17 06:10 Dose: 4 mg Pantoprazole Sodium (Protonix Ec Tab) 40 mg PO 0600,1600 [facility] Last Admin: 12/24/17 06:10 Dose: 40 mg Sucralfate (Carafate Oral Susp) 1 gm PO 0600,1600 [facility] Last Admin: 12/24/17 06:10 Dose: 1 gm Verapamil HCl (Verapamil Inj) 2.5 mg IVP Q6H PRN PRN Reason: for heart rate >130 Last Admin: 12/23/17 18:34 Dose: 2.5 mg - Labs Labs: 12/24/17 05:30 12/24/17 05:30 PT 12.3 SECONDS (9.4-12.5) 12/17/17 21:35 INR 1.08 (0.93-1.08) 12/17/17 21:35 APTT 30.9 Seconds (25.1-36.5) 12/18/17 22:25 - Constitutional Appears: Well - Head Exam Head Exam: ATRAUMATIC, NORMAL INSPECTION, NORMOCEPHALIC - Eye Exam Eye Exam: EOMI, Normal appearance, PERRL Pupil Exam: NORMAL ACCOMODATION, PERRL - ENT Exam ENT Exam: Mucous Membranes Moist, Normal Exam - Respiratory Exam Respiratory Exam: Clear to Ausculation Bilateral, NORMAL BREATHING PATTERN - Cardiovascular Exam Cardiovascular Exam: Irregular Rhythm, +S1, +S2. absent: Murmur - GI/Abdominal Exam GI & Abdominal Exam: Soft, Normal Bowel Sounds. absent: Tenderness - Neurological Exam Neurological Exam: Alert, Awake, CN II-XII Intact, Oriented x3 - Psychiatric Exam Psychiatric exam: Normal Affect, Normal Mood - Skin Skin Exam: Dry, Intact, Normal Color, Warm Assessment and Plan - Assessment and Plan (Free Text) Assessment: 62 F with a PMHx of pancost tumor of lung, ROLL[employer], hypothyroidism, stage 3 left breast ca Her-2/heidi positive s/p allergic reaction/hypotension after an elective venous port placement in preparation for neoadjuvant treatment for the newly discovered stage 3 breast cancer of the left breast. Pt echo revealed EF of 35% down from a previous 56%. Cardiac cath revealed mild coronary disease no stenting necessary with an EF of 40-45%. cleared for future mastectomy with moderate risk. Continue medical management as per ICU team. Duonebs PRN, Pulmicort BID, Solumedrol 40mg BID pulmonology Dr. Stubbs following. Nephrology Dr Gregory following, recommend IVF with isotonic fluids with repletion of Mg and K PHos. Possible SIADH 2/2 underlying malignancy. Consider tolvaptan. Muga scan was done LVEF 73%. As per cardiology, pt is on digoxin, coreg, lisinopril and verapamil prn. As per cardio can be Dc on oral digoxin, coreg, and lisinopril.
[2017-12-24] MEDS ORDERED: MethylPREDNISolone 40 mg Vial IVP SCH (10:00)
--- NOTE | 2017-12-24 10:10 | CARD ---
APPROVED REPORT EKG Measurement Heart [id number] <Conclusion> Atrial fibrillation with rapid ventricular response ST & T wave abnormality c/w ischemia No change
--- NOTE | 2017-12-24 10:50 | CP.PCM.PN ---
Subjective - Date & Time of Evaluation Date of Evaluation: 12/24/17 Time of Evaluation: 09:30 - Subjective Subjective: PGY-2 GI progress note Patient was seen and examined at bedside. No acute distress. Patient states that she is feeling better. She denies abd pain or vomiting. She states that her nausea has resolved and no longer reports any episodes. Patient states that she is tolerating regular diet. patient denies diarrhea or constipation, sob, chest pain, fever, chills Objective - Vital Signs/Intake and Output Vital Signs (last 24 hours): Temp Pulse Resp BP Pulse Ox 97.7 F 70 18 101/48 L 98 12/23/17 20:00 12/24/17 06:00 12/23/17 20:00 12/24/17 10:46 12/23/17 20:00 Intake and Output: 12/24/17 12/24/17 06:59 18:59 Intake Total 360 Output Total 300 Balance 60 - Medications Medications: Current Medications Albuterol/Ipratropium (Duoneb 3 Mg/0.5 Mg (3 Ml) Ud) 3 ml IH Q2H PRN PRN Reason: Shortness of Breath Arformoterol Tartrate (Brovana) 15 mcg IH [id number] [facility] Last Admin: 12/24/17 08:03 Dose: 15 mcg Aspirin (Aspirin Chewable) 81 mg PO DAILY [facility] Last Admin: 12/23/17 09:15 Dose: 81 mg Atorvastatin Calcium (Lipitor) 20 mg PO DIN [facility] Last Admin: 12/23/17 17:08 Dose: 20 mg Budesonide (Pulmicort Respules) 1 mg IH [id number] [facility] Last Admin: 12/24/17 08:03 Dose: 1 mg Carvedilol (Coreg) 3.125 mg PO BID [facility] Last Admin: 12/24/17 10:45 Dose: Not Given Digoxin (Lanoxin) 0.25 mg PO 1400 [facility] Last Admin: 12/23/17 13:35 Dose: 0.25 mg Diphenhydramine HCl (Benadryl) 25 mg IVP Q6H PRN PRN Reason: Nausea/Vomiting Last Admin: 12/23/17 05:50 Dose: 25 mg Heparin Sodium (Porcine) (Heparin) 5,000 units SC Q8 GENI PRN Reason: Protocol Last Admin: 12/24/17 06:11 Dose: 5,000 units Levalbuterol HCl (Xopenex) 1.25 mg IH [id number] [facility] Last Admin: 12/24/17 08:03 Dose: 1.25 mg Levothyroxine Sodium (Synthroid) 25 mcg PO 0600 [facility] Last Admin: 12/24/17 06:10 Dose: 25 mcg Lisinopril (Zestril) 2.5 mg PO DAILY [facility] Last Admin: 12/24/17 10:46 Dose: Not Given Lorazepam (Ativan) 0.25 mg IVP Q6H PRN; Protocol PRN Reason: Anxiety Last Admin: 12/23/17 05:51 Dose: 0.25 mg Megestrol Acetate (Megace) 400 mg PO DAILY [facility] Last Admin: 12/23/17 09:16 Dose: 400 mg Methylprednisolone (Solu-Medrol) 20 mg IVP Q12 [facility] Morphine Sulfate (Morphine) 2 mg IVP Q4H PRN PRN Reason: Pain, severe (8-10) Last Admin: 12/24/17 00:56 Dose: 2 mg Morphine Sulfate (Morphine Immediate Release Tab) 30 mg PO Q8 [facility] Last Admin: 12/24/17 06:10 Dose: 30 mg Morphine Sulfate (Morphine Extended Release Tab) 30 mg PO Q12H [facility] Ondansetron HCl (Zofran Inj) 4 mg IVP Q8H PRN PRN Reason: Nausea/Vomiting Last Admin: 12/23/17 06:10 Dose: 4 mg Pantoprazole Sodium (Protonix Ec Tab) 40 mg PO 0600,1600 [facility] Last Admin: 12/24/17 06:10 Dose: 40 mg Sucralfate (Carafate Oral Susp) 1 gm PO 0600,1600 [facility] Last Admin: 12/24/17 06:10 Dose: 1 gm Verapamil HCl (Verapamil Inj) 2.5 mg IVP Q6H PRN PRN Reason: for heart rate >130 Last Admin: 12/23/17 18:34 Dose: 2.5 mg - Labs Labs: 12/24/17 05:30 12/24/17 05:30 PT 12.3 SECONDS (9.4-12.5) 12/17/17 21:35 INR 1.08 (0.93-1.08) 12/17/17 21:35 APTT 30.9 Seconds (25.1-36.5) 12/18/17 22:25 - Constitutional Appears: Well, No Acute Distress - Head Exam Head Exam: ATRAUMATIC, NORMOCEPHALIC - Eye Exam Eye Exam: EOMI, Normal appearance - ENT Exam ENT Exam: Mucous Membranes Moist - Respiratory Exam Respiratory Exam: Clear to Ausculation Bilateral, NORMAL BREATHING PATTERN. absent: Rales, Rhonchi, Wheezes, Respiratory Distress - Cardiovascular Exam Cardiovascular Exam: REGULAR RHYTHM, +S1, +S2. absent: Bradycardia, Tachycardia , Murmur - GI/Abdominal Exam GI & Abdominal Exam: Soft, Normal Bowel Sounds. absent: Distended, Firm, Guarding, Rigid, Tenderness, Hernia - Neurological Exam Neurological Exam: Alert, Awake, Oriented x3 - Skin Skin Exam: Dry, Intact, Normal Color, Warm Assessment and Plan - Assessment and Plan (Free Text) Assessment: 62 year old female with breast cancer, lung cancer, hypothyroidism, pancoast tumor s/p resection and COPD presents with hypotension after undergoing anesthesia, GI was consulted for nausea and vomiting most likely mulifactorial due to pain medication withdrawal and bezoar rapid a. fib hypotension- resolved copd nausea/ vomiting- resolved Plan: cardiology following will continue to monitor for n/v, resolved continue protonix q12, stopping carafate continue zofran prn continue Regular diet Case discussed and reviewed with attending.
[2017-12-24] MEDS: Megestrol Acetate 40 mg/ml Cup PO SCH (10:57)
[2017-12-24] MEDS ORDERED: Morphine 30 mg SR Tab PO SCH (11:00)
[2017-12-24] MEDS: Morphine 15 mg SR Tab PO SCH (11:30)
--- NOTE | 2017-12-24 12:04 | PN ---
DATE: 12/24/2017 LOCATION: The patient is in room 261, bed 2. REASON FOR CONSULTATION AND FOLLOWUP: Hypotension, hemodynamic instability, borderline positive troponin probably due to hypotensive episode, non ST segment elevation myocardial infarction probably due to hypotension, still Port cardiac catheterization, history of breast CA, COPD, atrial fibrillation and rapid rate, now converted to sinus rhythm. SUBJECTIVE: The patient lying flat in bed without chest pain, shortness of breath, palpitation. The patient was on third floor and the patient developed rapid atrial fibrillation, rate around 130 to 150 per minute, but the patient was totally asymptomatic. So, the patient received digoxin, Verapamil IV and another dose of digoxin. The patient 2 a.m. today converted in to sinus rhythm. The patient still has no cardiac symptoms during tachycardia and now she is lying flat in bed without any cardiac symptoms. PHYSICAL EXAMINATION: VITAL SIGNS: Blood pressure 97/49, respirations 18, pulse 70. The patient afebrile. HEENT: Head is normocephalic. Eyes: Pupils normal. Conjunctivae slightly pale. NECK: JVP low. Carotids are equal. Thorax: AP diameter normal. LUNGS: Clear. CARDIOVASCULAR: S1 and S2. ABDOMEN: Soft and nontender. No organomegaly. EXTREMITIES: No clubbing, no cyanosis. LABORATORY DATA: WBC 10.7, hemoglobin 10.2, hematocrit 29.1, platelets 249. Sodium 137, potassium 4.2, BUN 11, creatinine 0.4, calcium 8.2. Troponin 0.06. Total protein 4.9, albumin 2.6. DIAGNOSES: Status post Port-A-Cath insertion, development of hypotension for more than 5 hours and due to hemodynamic instability, the patient has [id number] myocardial infarction status post cardiac catheterization that revealed nonobstructive coronary artery disease limited only to mid left anterior descending artery which was 50% stenosis; ostial diagonals 60% stenosis; ejection fraction 40% to 45%; obtuse marginal branch is also 50% to 60%. The patient had MUGA scan done on this admission and ejection fraction is 73%. The patient has history of chronic obstructive pulmonary disease; breast cancer; run of atrial fibrillation rapid rate, now converted to sinus rhythm. PLAN: We will check digoxin level. The patient is on Coreg 3.125 b.i.d. and also on digoxin 0.25 daily. We will continue aspirin 81 mg daily and the patient getting hand nebulizer therapy, megestrol acetate 400 mg p.o. daily, Protonix 40 p.o. daily, methylprednisolone 20 mg IV every 12 hours, levothyroxine 25 mcg p.o. daily, lisinopril 2.5 mg p.o. daily. The patient now converted to sinus rhythm. We will continue present therapy. We will check the digoxin level. We will follow with you. Lolis Naik MD
[2017-12-24] MEDS: Digoxin 250 mcg (0.25 mg) Tab PO SCH (14:17)
--- NOTE | 2017-12-24 14:20 | PN ---
DATE: 12/24/2017 SUBJECTIVE: The patient is seen lying in bed. She is awake. She is alert. She is comfortable. She denies any nausea. She denies any vomiting. She denies any diarrhea. She is eating. PHYSICAL EXAMINATION: GENERAL: Thinly built elderly lady lying in bed. VITAL SIGNS: Blood pressure 101/48, heart rate 87, respiratory rate 18, temperature 97.7. HEENT: Normocephalic, atraumatic. NECK: Supple, no JVD. LUNGS: Bilateral equal entry, bilateral equal expansion. CARDIAC: S1, S2. Regular rate and rhythm. No murmur, no rub. Abdomen: Soft, nondistended, nontender. Bowel sounds present. Extremities: No lower extremity edema. INTAKE AND OUTPUT: 960/300. LABORATORY DATA: WBC 10, hemoglobin 10, hematocrit 29, platelets 249. Sodium 132, potassium 4.2, chloride 94, CO2 31, BUN 11, creatinine 0.4, glucose 130, calcium 8.2, albumin 2.6, corrected calcium is 9.2. Urine sodium 85, urine osmolality 415. Cultures, no growth so far. CURRENT MEDICATIONS: Aspirin, Ativan, Benadryl, Brovana, Carafate, Coreg 3.125 b.i.d., DuoNeb, heparin, digoxin, Lipitor, Megace, morphine, Protonix, Solu-Medrol 20 IV every 12 hours, Synthroid, verapamil p.r.n., Xopenex. ASSESSMENT AND PLAN: 1. Hypokalemia, resolved. 2. 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 3. Low blood pressure. 4. Breast cancer. 5. Remote history of lung cancer. 6. Chronic obstructive pulmonary disease. PLAN: 1. No indication for any therapeutic intervention for the low sodium at this time. 2. Push p.o. intake. 3. Restrict p.o. fluids to 1200 mL per day. Rita Daley MD
[2017-12-24 14:22] VITALS: PULSE 92
--- NOTE | 2017-12-24 15:25 | CP.PCM.DIS ---
Provider - Provider Date of Admission: 12/17/17 22:00 Attending physician: David Soto MD Primary care physician: Jaylyn Rodriguez MD Consults: GI Dr Michelle Stubsb Heme onc Dr Rodriguez Cardio Dr. Soares Nephchin Daley Time Spent in preparation of Discharge (in minutes): 45 Hospital Course - Lab Results Lab Results: Micro Results 12/18/17 00:00 Naris MRSA Culture (Admit) - Final MRSA NOT DETECTED Most Recent Lab Values WBC 10.7 10^3/ul (4.5-11.0) D 12/24/17 05:30 RBC 3.19 10^6/uL (3.5-6.1) L 12/24/17 05:30 Hgb 10.2 g/dL (12.0-16.0) L 12/24/17 05:30 Hct 29.1 % (36.0-48.0) L 12/24/17 05:30 MCV 91.2 fl (80.0-105.0) 12/24/17 05:30 MCH 32.0 pg (25.0-35.0) 12/24/17 05:30 MCHC 35.1 g/dl (31.0-37.0) 12/24/17 05:30 RDW 12.3 % (11.5-14.5) 12/24/17 05:30 Plt Count 249 10^3/uL (120.0-450.0) 12/24/17 05:30 MPV 9.4 fl (7.0-11.0) 12/24/17 05:30 Gran % 89.5 % (50.0-68.0) H 12/22/17 05:30 Lymph % (Auto) 6.2 % (22.0-35.0) L 12/22/17 05:30 [place] % (Auto) 4.3 % (1.0-6.0) 12/22/17 05:30 Eos % (Auto) 0.0 % (1.5-5.0) L 12/22/17 05:30 Baso % (Auto) 0.0 % (0.0-3.0) 12/22/17 05:30 Gran # 17.88 (1.4-6.5) H 12/22/17 05:30 Lymph # (Auto) 1.2 (1.2-3.4) 12/22/17 05:30 [place] # (Auto) 0.9 (0.1-0.6) H 12/22/17 05:30 Eos # (Auto) 0.0 (0.0-0.7) 12/22/17 05:30 Baso # (Auto) 0.00 K/mm3 (0.0-2.0) 12/22/17 05:30 Neutrophils % (Manual) 93 % (50.0-70.0) H 12/18/17 05:00 Lymphocytes % (Manual) 6 % (22.0-35.0) L 12/18/17 05:00 Monocytes % (Manual) 1 % (1.0-6.0) 12/18/17 05:00 Platelet Evaluation Normal (NORMAL) 12/18/17 05:00 PT 12.3 SECONDS (9.4-12.5) 12/17/17 21:35 INR 1.08 (0.93-1.08) 12/17/17 21:35 APTT 30.9 Seconds (25.1-36.5) 12/18/17 22:25 pO2 49 mm/Hg (30-55) 12/17/17 20:30 VBG pH 7.17 (7.32-7.43) L* 12/17/17 20:30 VBG pCO2 68.0 (40-60) H* 12/17/17 20:30 VBG HCO3 24.8 mmol/l (21-28) 12/17/17 20:30 VBG Total CO2 26.9 mmol.L (22-28) 12/17/17 20:30 VBG O2 Sat (Calc) 81.3 % (40-65) H 12/17/17 20:30 VBG Base Excess -5.1 mmol/L (0.0-2.0) L 12/17/17 20:30 VBG Potassium 3.6 mmol/L (3.6-5.2) 12/17/17 20:30 Sodium 136.0 mmol/L (132-148) 12/17/17 20:30 Chloride 106.0 mmol/L (98-107) 12/17/17 20:30 Glucose 138 mg/dl (65-105) H 12/17/17 20:30 Lactate 1.8 mmol/L (0.7-2.1) 12/17/17 20:30 FiO2 21.0 % 12/17/17 20:30 Sodium 132 mmol/L (132-148) 12/24/17 05:30 Potassium 4.2 mmol/L (3.6-5.0) 12/24/17 05:30 Chloride 94 mmol/L (98-107) L 12/24/17 05:30 Carbon Dioxide 31 mmol/L (21-33) 12/24/17 05:30 Anion Gap 11 (10-20) 12/24/17 05:30 BUN 11 mg/dL (7-21) 12/24/17 05:30 Creatinine 0.4 mg/dl (0.7-1.2) L 12/24/17 05:30 Est GFR ( Amer) > 60 12/24/17 05:30 Est GFR (Non-Af Amer) > 60 12/24/17 05:30 Random Glucose 130 mg/dL (70-110) H 12/24/17 05:30 Hemoglobin A1c 5.5 % (4.2-6.5) 12/21/17 06:00 Uric Acid 1.4 mg/dL (2.5-6.2) L 12/20/17 06:40 Calcium 8.2 mg/dL (8.4-10.5) L 12/24/17 05:30 Phosphorus 3.2 mg/dL (2.5-4.5) 12/22/17 05:30 Magnesium 1.8 mg/dL (1.7-2.2) 12/22/17 05:30 Total Bilirubin 0.3 mg/dL (0.2-1.3) 12/24/17 05:30 AST 19 U/L (14-36) 12/24/17 05:30 ALT 19 U/L (7-56) 12/24/17 05:30 Alkaline Phosphatase 38 U/L (38-126) 12/24/17 05:30 Troponin I 0.06 ng/mL D 12/24/17 05:30 NT-Pro-B Natriuret Pep 119 pg/mL (0-450) 12/17/17 21:35 Total Protein 4.9 g/dL (5.8-8.3) L 12/24/17 05:30 Albumin 2.6 g/dL (3.0-4.8) L 12/24/17 05:30 Globulin 2.4 gm/dL 12/24/17 05:30 Albumin/Globulin Ratio 1.1 (1.1-1.8) 12/24/17 05:30 Triglycerides 42 mg/dL (35-160) 12/19/17 05:30 Cholesterol 166 mg/dL (130-200) 12/19/17 05:30 LDL Cholesterol Direct 96 mg/dL (0-129) 12/19/17 05:30 HDL Cholesterol 54 mg/dL (29-60) 12/19/17 05:30 Procalcitonin 0.05 NG/ML (0.19-0.49) L 12/17/17 21:35 Free T4 1.18 ng/dL (0.78-2.19) 12/18/17 12:00 TSH 3rd Generation 1.55 mIU/mL (0.46-4.68) 12/18/17 12:00 Venous Blood Potassium 3.6 mmol/L (3.6-5.2) 12/17/17 20:30 Urine Color Yellow (YELLOW) 12/17/17 22:53 Urine Appearance Clear (CLEAR) 12/17/17 22:53 Urine pH 7.0 (4.7-8.0) 12/17/17 22:53 Ur Specific [place] 1.010 (1.005-1.035) 12/17/17 22:53 Urine Protein 30 mg/dL (<30 mg/dL) H 12/17/17 22:53 Urine Glucose (UA) Negative mg/dL (NEGATIVE) 12/17/17 22:53 Urine Ketones Negative mg/dL (NEGATIVE) 12/17/17 22:53 Urine Blood Negative (NEGATIVE) 12/17/17 22:53 Urine Nitrate Negative (NEGATIVE) 12/17/17 22:53 Urine Bilirubin Negative (NEGATIVE) 12/17/17 22:53 Urine Urobilinogen 0.2 E.U./dL (<1 E.U./dL) 12/17/17 22:53 Ur Leukocyte Esterase Negative [place]/uL (NEGATIVE) 12/17/17 22:53 Urine RBC 0 - 2 /hpf (0-2) 12/17/17 22:53 Urine WBC 0 - 2 /hpf (0-6) 12/17/17 22:53 Ur Epithelial Cells 0 - 2 /hpf (0-5) 12/17/17 22:53 Urine Osmolality 415 mosm/kg (300-1000) 12/21/17 02:00 Ur Random Sodium 85 meq/L 12/21/17 12:32 Digoxin 1.7 ng/mL (0.8-2.0) 12/24/17 10:10 Blood Type O POSITIVE 12/18/17 09:20 Blood Type Confirm O POSITIVE 12/18/17 09:45 Antibody Screen Negative 12/18/17 09:20 BBK History Checked No verified bt 12/18/17 09:20 - Hospital Course Hospital Course: 62 F with a PMHx pancost tumor of lung, [employer], hypothyroidism, stage 3 left breast ca Her-2/heidi positive s/p allergic reaction/hypotension after an elective venous port placement in preparation for neoadjuvant treatment for the newly discovered stage 3 breast cancer of the left breast. . Pt echo revealed EF of 35% down from a previous 56%. Dr. Soares, cardiology is following with plans of a MUGA scan and possible cardiac catheterization to account for the reduced EF so that proper chemotherapy can be administered. Cardiac cath revelaed mild coronary disease no stenting necessary with an Ef of 40-45%. cleared for future mastectomy. Continue medical management as per ICU team. Duonebs PRN, Pulmicort BID, Solumedrol 40mg BID pulmonology Dr. Stubbs following. Pt developed new onset Afib which Cardiology addressed with digoxin, coreg, and lisinopril pt converted back to NSR. Pt is doing well and upon DC will Follow up with cardio Dr soares, pulm Dr stubbs, and heme onc Dr Rodriguez. Discharge Exam - Head Exam Head Exam: ATRAUMATIC, NORMOCEPHALIC - Eye Exam Eye Exam: EOMI, Normal appearance, PERRL Pupil Exam: NORMAL ACCOMODATION, PERRL - ENT Exam ENT Exam: Mucous Membranes Moist - Respiratory Exam Respiratory Exam: NORMAL BREATHING PATTERN, UNREMARKABLE - Cardiovascular Exam Cardiovascular Exam: REGULAR RHYTHM, +S1, +S2 - GI/Abdominal Exam GI & Abdominal Exam: Normal Bowel Sounds, Soft. absent: Tenderness - Neurological Exam Neurological exam: Alert, CN II-XII Intact, Oriented x3, Reflexes Normal - Psychiatric Exam Psychiatric exam: Normal Affect, Normal Mood - Skin Skin Exam: Dry, Intact, Normal Color, Warm Discharge Plan - Discharge Medications Prescriptions: Aspirin [Aspirin Chewable] 81 mg PO DAILY #30 chew Atorvastatin [Lipitor] 20 mg PO DIN #30 tab Carvedilol [Coreg] 3.125 mg PO BID #60 tab Digoxin [Lanoxin] 0.25 mg PO 1400 #30 tab Lisinopril [Zestril] 2.5 mg PO DAILY #30 tab Megestrol Acetate [Megace] 400 mg PO DAILY #30 cup Methylprednisolone [Medrol] See Taper PO DAILY 7 Days tab.[id number].[email or web address] - Follow Up Plan Condition: FAIR Disposition: HOME/ ROUTINE Additional Instructions: 1. Pt to take note of new cardiac med of digoxin and coreg 2. Pt is to fu with PMD within 1 week 3. Pt is to set up appointment with Dr. Michael scott within 3-5 days. 4. Pt welcomed to return to [facility] [place] if symptoms change or worsen Referrals: Jaylyn Rodriguez MD [Primary Care Provider] -
[2017-12-24] MEDS ORDERED: DiphenhydrAMINE 50 mg/ml Inj IVP PRN (16:26)
[2017-12-24 17:04] VITALS: BP 106/57
[2017-12-24 18:22] VITALS: PULSE 82; RESP 16; TEMP 98.4
== END 2017-12-24 19:02 | disposition home or self-care (01) | DRG 281 ==
LOC: ED 18:44 → ERH 22:00 → ICU 23:39 → 3RNO 12-22 13:51 → 2RNO 12-23 21:16
PROVIDERS: ADMIT Family Medicine; ATTEND Family Medicine
PROC: 4A023N7 Measurement of Cardiac Sampling and Pressure, Left Heart, Percutaneous Approach (ICD-10-PCS; principal; 2017-12-21)
PROC: B2151ZZ Fluoroscopy of Left Heart using Low Osmolar Contrast (ICD-10-PCS; 2017-12-21)
PROC: B2111ZZ Fluoroscopy of Multiple Coronary Arteries using Low Osmolar Contrast (ICD-10-PCS; 2017-12-21)
DX: I21.4 Non-ST elevation (NSTEMI) myocardial infarction (principal); R64 Cachexia; J44.1 Chronic obstructive pulmonary disease with (acute) exacerbation; I42.9 Cardiomyopathy, unspecified; E44.0 Moderate protein-calorie malnutrition; Z68.1 Body mass index [BMI] 19.9 or less, adult; E22.2 Syndrome of inappropriate secretion of antidiuretic hormone; I47.1 Supraventricular tachycardia; I25.110 Atherosclerotic heart disease of native coronary artery with unstable angina pectoris; C50.912 Malignant neoplasm of unspecified site of left female breast; I95.81 Postprocedural hypotension; T42.4X5A Adverse effect of benzodiazepines, initial encounter; T40.4X5A Adverse effect of other synthetic narcotics, initial encounter; I48.91 Unspecified atrial fibrillation; E03.9 Hypothyroidism, unspecified; I50.9 Heart failure, unspecified; D64.9 Anemia, unspecified; E87.6 Hypokalemia; E83.42 Hypomagnesemia; E86.0 Dehydration; E83.39 Other disorders of phosphorus metabolism; I27.20 Pulmonary hypertension, unspecified; Z90.2 Acquired absence of lung [part of]; Z87.891 Personal history of nicotine dependence; Z17.0 Estrogen receptor positive status [ER+]; Z85.118 Personal history of other malignant neoplasm of bronchus and lung

== ENCOUNTER 2018-10-10 17:31 | Outpatient (CLI) | payer MEDICARE | END 2018-10-10 17:32 | disposition home or self-care (01) | LOC: OPLAB 17:31 | DX: D64.9 Anemia, unspecified (principal); E78.5 Hyperlipidemia, unspecified; E83.40 Disorders of magnesium metabolism, unspecified; M81.0 Age-related osteoporosis without current pathological fracture ==

== ENCOUNTER 2018-11-24 12:11 | Outpatient (CLI) | payer MEDICARE | END 2018-11-24 12:12 | disposition home or self-care (01) | LOC: OPLAB 12:11 | DX: D64.9 Anemia, unspecified (principal); E78.5 Hyperlipidemia, unspecified; E83.40 Disorders of magnesium metabolism, unspecified; M81.0 Age-related osteoporosis without current pathological fracture ==

== ENCOUNTER 2018-12-14 12:40 | Outpatient (CLI) | payer MEDICARE | END 2018-12-14 12:41 | disposition home or self-care (01) | LOC: OPLAB 12:40 ==

== ENCOUNTER 2019-01-04 12:25 | Outpatient (CLI) | payer MEDICARE | END 2019-01-04 12:26 | disposition home or self-care (01) | LOC: OPLAB 12:25 ==